=== PATIENT | female | born 1930 | race Caucasian/White ===

== ENCOUNTER 2018-05-01 12:09 | Inpatient (IN) | payer MEDICARE ==
[2018-05-01] MEDS ORDERED: Acetaminophen 650 MG Suppository PR PRN (15:05)
[2018-05-01] MEDS ORDERED: traMADol HCl 50 MG TAB PO PRN ×2 (15:08)
--- NOTE | 2018-05-01 16:33 | HP ---
CHIEF COMPLAINT: Weakness. PRESENT ILLNESS: The patient is an 88-year-old female who lives by herself and is independe nt of all her ADLs, who still drives. She has not really had any medical problem and is on no routin e medication. The patient had a fall from ground level on 04/27/2018. She is really not sure what h appened, but she had a lot of pain in her right leg and could not walk. She was taken to the emergen cy room and was found to have a distal oblique fracture of the distal right femur. She was hospitali zed at [facility] and on 04/28/2018, she underwent an open reduction interna l fixation with an intramedullary radha and 2 distal cross-locking screws and 1 proximal locking screw. This was done by Dr. Jackson with good alignment of the fracture. Postop course has been unremar kable. The patient has run a little low-grade fever with no obvious signs of infection. She has bee n no weightbearing on that right leg. She was transferred to [facility] on 05/01/2018 for cont inued physical therapy and occupational therapy due to her weakness and severe gait abnormality, part icularly with her nonweightbearing on the right leg. Patient was seen soon after her admission to [facility]. Her son, Xander, and [id number], Jody marti were with her and some grandchildren. Between the patient and her son, excellent history was abl e to be obtained. Her record was also reviewed. The patient said she is doing good and she is reall y not having much in the way of pain. PAST HISTORY: The patient is a 2, para 2. Second child was delivered by section. She has had bilateral cataract surgery with intraocular lens implants. She has had no medical proble ms. No other surgeries. PRESENT MEDICINES: None. Prior to her hospitalization, the patient came from [facility] on the following medicines: Senokot 2 p.o. daily, MiraLax 17 g in 8 ounces of water daily, Colace 100 mg daily, Tylenol 500 mg 2 every 4 hours as needed, tramadol 50 mg 1-2 every 6 hours as needed for pain. ALLERGIES: No known allergies. REVIEW OF SYSTEMS: The patient has had no recent weight gain or loss. Patient has had a low-grade f ever off and on since yesterday. HEAD AND NECK: No complaints. PULMONARY: No complaints. CARDIOVASCULAR: No chest pain. GASTROINTESTINAL: No complaints. MUSCULOSKELETAL: See present illness. NEURO/PSYCHIATRIC: The patient did not sustain any head injury with her fall nor loss of consciousne ss. HABITS: Alcohol none. Tobacco none. SOCIAL HISTORY: Patient is a , lives by herself, but has family that lives close by. She still drives. CODE STATUS: Full code. PHYSICAL EXAMINATION: GENERAL: Shows a very pleasant 88-year-old female who is alert, talkative, oriented to wher e she is and what has happened to her and to time. She appears in no distress. VITAL SIGNS: Show a temperature of 99.7, pulse 96, blood pressure 138/72, respirations 20, O2 sat 96 %. Her weight, pending. HEAD: Normocephalic and atraumatic. EYES: Pupils were equal, round, and reactive. Sclerae nonicteric. EARS: TMs are clear. NOSE: Normal. MOUTH AND THROAT: Normal. NECK: Carotids are equal and strong, no bruits. Thyroid not enlarged. LUNGS: Clear. HEART: Regular rate. No murmurs. ABDOMEN: Soft, no organomegaly nor areas of tenderness. EXTREMITIES: Lower extremities; no edema. The patient has a dressing on the right leg with a knee i mmobilizer. Nurses had changed this earlier and said that the incisions were very clean and dry. IMPRESSION: 1. Generalized weakness and gait abnormality. A. Following a fall and fracture of the right distal femur. B. Presently at nonweightbearing on the right leg. 2. Close mildly displaced oblique fracture of the right distal femur. A. Status post open reduction internal fixation with an intramedullary radha with two cross-locking sc rews distally and 1 cross-locking screw proximally by Dr. Jackson on 04/28/2018. 3. Anemia. A. Secondary to probably blood loss from the fracture and surgery. B. Hemoglobin 8.8 on 04/30/2018. PLAN: The patient has been admitted to [facility] extended care for physical therapy and occup ational therapy in an effort to increase her general strength and functional capability. At present, she is at nonweightbearing and suspect this will be for a 6-week period. We will clarify this with her orthopedic surgeon, Dr. Jackson. We will repeat lab studies in the morning. We will place the patient on DVT prophylaxis. See orders.
[2018-05-01 19:48] LABS: Bilirubin Negative (Negative); Blood, Urine Negative (Negative); Clarity Clear (Clear); Glucose, Urine (Dipstick) Negative (Negative); Leukocyte Negative (Negative); Nitrite Negative (Negative); Protein, Urine (Dipstick) Negative (Neg-Trace); Specific Gravity, Urine 1.015 (1.005-1.030); pH, Urine 6.5 (5.0-9.0)
[2018-05-01 19:50] LABS: Bacteria/HPF Rare-Few HPF (None Seen); RBC/HPF 0-3 HPF (0-3); Squamous Epithelial 0-3 HPF (0-3); WBC/HPF 0-3 HPF (0-3)
[2018-05-02 05:42] LABS: #Basophils 0.1 thou/uL (0.0-0.2); #Eosinphils 0.1 thou/uL (0.0-0.7); #Lymphocytes 1.1 thou/uL (1.20-3.40); #Monocytes 0.4 thou/uL (0.11-0.59); #Neutrophils 4.5 thou/uL (1.40-6.50); %Basophils 1.8 % (0.0-1.0); %Eosinophils 1.5 % (0.0-10.0); %Lymphocytes 17.3 % (21.0-51.0); %Monocytes 6.7 % (0.0-10.0); %Neutrophils 72.7 % (42.0-75.0); Hemoglobin 8.8 g/dL (12.0-16.0); Mean Corpuscular HGB CONC 33.4 g/dL (32.0-36.0); Mean Corpuscular Hemoglobin 33.2 pg (27.0-31.0); Mean Corpuscular Volume 99.4 fL (78.0-98.0); Mean Platelet Volume 6.2 fL (7.4-10.4); Platelet Count 218 thou/uL (130-400); RBC Distribution Width 13.6 % (11.5-14.5); Red Blood Cell (RBC) Count 2.66 mill/uL (4.20-5.40); White Blood Cell (WBC) Count 6.2 thou/uL (4.8-10.8)
[2018-05-02 05:44] LABS: Anion Gap 11 mmol/L (10-20); BUN (Urea Nitrogen) 14 mg/dL (9.8-20.1); Calc. Creatinine Clearance 46 mL/min (70-130); Calcium 8.5 mg/dL (7.8-10.44); Chloride 108 mmol/L (98-107); Estimated GFR-MDRD 72; Glucose 99 mg/dL (83-110); Potassium 4.3 mmol/L (3.5-5.1); Sodium 142 mmol/L (136-145)
[2018-05-02 05:59] LABS: Carbon Dioxide 27 mmol/L (23-31)
[2018-05-02 06:06] LABS: Thyroid Stimulating Hormone 0.1919 uIU/mL (0.35-4.94)
[2018-05-02] MEDS ORDERED: Prevnar 13-Val Conj/PF 0.5 ML SYRINGE IM ONE (08:00)
[2018-05-02] MEDS: Polyethylene Glycol 3350 17 GM Packet PO SCH (08:56)
[2018-05-02] MEDS: Docusate 100 MG CAP PO SCH (08:56)
[2018-05-02] MEDS: Enoxaparin Sodium 30 MG/0.3 ML SYRINGE SC SCH (08:56)
--- NOTE | 2018-05-02 11:46 | PRG ---
DATE OF SERVICE: 05/02/2018 SUBJECTIVE: The patient said she is doing good this morning, said she had a little trouble sleeping last night, but finally went to sleep early this morning. The pain seemed to be controlled. OBJECTIVE: The patient is alert, appears comfortable, in no distress. Temp 98.6, pulse 92, respirat ions 20, O2 sat 98% on room air, blood pressure 183/77, last evening it was 138/66. Lungs were clear . Heart, regular rate. Lower extremities, no edema. The right leg has a dressing wrap and a knee i mmobilizer in place. Her labs shows an H&H of 8.8 and 26.5, WBC count 6200 with 73% segs, 17% lympho cytes, platelet count of 218,000. Sodium 142, potassium 4.3, BUN 14, creatinine 0.76. GFR 72, gluco se 99. Vitamin D pending. TSH 0.19. Urine shows negative nitrite, 0-3 RBCs, 0-3 WBCs. ASSESSMENT: 1. Generalized weakness and gait abnormality. A. Following a fall and fracture of the right distal femur. B. Presently at nonweightbearing on the right leg. C. Stable. PT, OT will begin working with patient as of 05/02/2018. 2. Close mildly displaced oblique fracture of the right distal femur. A. Status post open reduction internal fixation with an intramedullary radha with two cross-locking sc rews distally and 1 cross-locking screw proximally by Dr. Jackson on 04/28/2018. 3. Anemia. A. Secondary to probably blood loss from the fracture and surgery. B. Stable with a hemoglobin of 8.8. PLAN: Continue present care. Continue PT and OT will begin working with her today.
[2018-05-02 12:29] LABS: Vitamin D, 25 Hydroxy 22.9 ng/ml (> 30.0)
[2018-05-02] MEDS: Acetaminophen 325 MG TAB PO PRN (20:37)
[2018-05-03] MEDS: Docusate 100 MG CAP PO SCH (08:41)
[2018-05-03] MEDS: Enoxaparin Sodium 30 MG/0.3 ML SYRINGE SC SCH (08:41)
[2018-05-03] MEDS: Polyethylene Glycol 3350 17 GM Packet PO SCH (08:41)
--- NOTE | 2018-05-03 09:19 | PRG ---
DATE OF SERVICE: 05/03/2018 SUBJECTIVE: The patient said she is doing fine. She rested well last night. Overall, she is feelin g better. OBJECTIVE: The patient lying in bed, alert, appears comfortable in no distress. She did say it has been several days since she has had a bowel movement. She is passing a little gas. Her vital signs show a temperature 98.2, respirations 16, pulse 76, O2 sat 96% on room air, blood pressure 159/74. L ungs are clear. Heart, regular rate. Lower extremities, no edema. Right leg is wrapped with an mo . ASSESSMENT: 1. Generalized weakness and gait abnormality. A. Following a fall and fracture of the right distal femur. B. Presently at nonweightbearing on the right leg. C. Improved as of 05/03/2018, still with no weightbearing on the right. 2. Close mildly displaced oblique fracture of the right distal femur. A. Status post open reduction internal fixation with an intramedullary radha with two cross-locking sc rews distally and 1 cross-locking screw proximally by Dr. Jackson on 04/28/2018. 3. Anemia. A. Secondary to probably blood loss from the fracture and surgery. B. Stable with a hemoglobin of 8.8. PLAN: Continue present care. Continue PT and OT.
[2018-05-04] MEDS: Polyethylene Glycol 3350 17 GM Packet PO SCH (09:58)
[2018-05-04] MEDS: Enoxaparin Sodium 30 MG/0.3 ML SYRINGE SC SCH (09:58)
[2018-05-04] MEDS: Docusate 100 MG CAP PO SCH (09:58)
--- NOTE | 2018-05-04 11:16 | PRG ---
DATE OF SERVICE: 05/04/2018 SUBJECTIVE: The patient said she is feeling better. She had a good night. She has been up working with physical therapy. She is now in a wheelchair with the right leg elevated. OBJECTIVE: GENERAL: The patient is sitting in a wheelchair with the right leg in a knee immobilizer and outstre tched, legs supported on wheelchair. She looks very comfortable, in no distress. VITAL SIGNS: Shows a temperature 98.3, pulse 83, respirations 18, O2 sat 96% on room air, blood pres sure 158/72. LUNGS: Clear. HEART: Regular rate. EXTREMITIES: No edema. ASSESSMENT: 1. Generalized weakness and gait abnormality. A. Following a fall and fracture of the right distal femur. B. Presently at nonweightbearing on the right leg. C. Improved as of 05/04/2018. Still no weightbearing on the right. Remaining diagnoses are the cathleen e. 2. Close mildly displaced oblique fracture of the right distal femur. A. Status post open reduction internal fixation with an intramedullary radha with two cross-locking sc rews distally and 1 cross-locking screw proximally by Dr. Jackson on 04/28/2018. 3. Anemia. A. Secondary to probably blood loss from the fracture and surgery. B. Stable with a hemoglobin of 8.8. PLAN: Continue present care. Continue PT and OT.
[2018-05-04] MEDS: Acetaminophen 325 MG TAB PO PRN (21:07)
[2018-05-05] MEDS: Polyethylene Glycol 3350 17 GM Packet PO SCH (08:41)
[2018-05-05] MEDS: Docusate 100 MG CAP PO SCH (08:41)
[2018-05-05] MEDS: Enoxaparin Sodium 30 MG/0.3 ML SYRINGE SC SCH (08:41)
--- NOTE | 2018-05-05 10:10 | PRG ---
DATE OF SERVICE: 05/05/2018 SUBJECTIVE: The patient has been doing very well. She has no complaints. She has already been up w orking with physical therapy. OBJECTIVE: The patient is sitting in bedside chair eating her breakfast with the right leg elevated. She looks very comfortable, in no distress. Her temperature is 98.2, pulse 84, respirations 18, O2 sat 95%, blood pressure 163/77. Lungs were clear. Heart, regular rate. Lower extremities, no harman a. Right leg has the wrapping on the leg and the knee immobilizer. Left forearm, on the volar surfa ce there is some area of bruising and little induration from an IV infiltration. She has some little superficial phlebitis there, this probable the source of her low grade fever. ASSESSMENT: 1. Generalized weakness and gait abnormality. A. Following a fall and fracture of the right distal femur. B. Presently at nonweightbearing on the right leg. C. Improved as of 05/05/2018. Still no weightbearing on the right leg. 2. Close mildly displaced oblique fracture of the right distal femur. A. Status post open reduction internal fixation with an intramedullary radha with two cross-locking sc rews distally and 1 cross-locking screw proximally by Dr. Jackson on 04/28/2018. B. Doing well for 7 days postop as of 05/05/2018. 3. Anemia. A. Secondary to probably blood loss from the fracture and surgery. B. Stable with a hemoglobin of 8.8. PLAN: Continue present care. Continue physical therapy.
[2018-05-05] MEDS: Senokot 8.6 MG TAB PO PRN (20:33)
[2018-05-06] MEDS: Enoxaparin Sodium 30 MG/0.3 ML SYRINGE SC SCH (09:02)
[2018-05-06] MEDS: Polyethylene Glycol 3350 17 GM Packet PO SCH (09:02)
[2018-05-06] MEDS: Docusate 100 MG CAP PO SCH (09:02)
[2018-05-06] MEDS: Senokot 8.6 MG TAB PO PRN (20:08)
[2018-05-07] MEDS: Enoxaparin Sodium 30 MG/0.3 ML SYRINGE SC SCH (08:31)
[2018-05-07] MEDS: Polyethylene Glycol 3350 17 GM Packet PO SCH (08:31)
[2018-05-07] MEDS: Docusate 100 MG CAP PO SCH (08:31)
[2018-05-07] MEDS: Acetaminophen 325 MG TAB PO PRN (22:28)
[2018-05-08] MEDS: Enoxaparin Sodium 30 MG/0.3 ML SYRINGE SC SCH (08:34)
[2018-05-08] MEDS: Docusate 100 MG CAP PO SCH (08:34)
[2018-05-08] MEDS: Polyethylene Glycol 3350 17 GM Packet PO SCH (08:34)
[2018-05-09 06:00] LABS: Anion Gap 12 mmol/L (10-20); BUN (Urea Nitrogen) 15 mg/dL (9.8-20.1); Calc. Creatinine Clearance 47 mL/min (70-130); Calcium 8.8 mg/dL (7.8-10.44); Carbon Dioxide 28 mmol/L (23-31); Chloride 108 mmol/L (98-107); Estimated GFR-MDRD 74; Glucose 91 mg/dL (83-110); Potassium 4.5 mmol/L (3.5-5.1); Sodium 143 mmol/L (136-145)
[2018-05-09 06:14] LABS: Band 1 % (5-11); Hemoglobin 9.4 g/dL (12.0-16.0); Hypochromia SLIGHT = 6-15 cells (100X) (0-5/hpf); Lymphocytes 16 % (21-51); MDiff Complete? YES; Macrocytosis SLIGHT = 6-15 cells (100X) (0-5/hpf); Mean Corpuscular HGB CONC 32.3 g/dL (32.0-36.0); Mean Corpuscular Hemoglobin 32.9 pg (27.0-31.0); Microcytosis SLIGHT = 6-15 cells (100X) (0-5/hpf); Monocytes 7 % (0-10); Neutrophil 73 % (42-75); Platelet Count 421 thou/uL (130-400); Platelet Morphology Comment Appears Adequate; RBC Distribution Width 15.8 % (11.5-14.5); RBC Morphology Abnormal; Reactive Lymphocytes 3 % (0-10); Red Blood Cell (RBC) Count 2.85 mill/uL (4.20-5.40); Stomatocytes SLIGHT = 2-5 cells (100X) (0-1/hpf); White Blood Cell (WBC) Count 6.8 thou/uL (4.8-10.8)
--- NOTE | 2018-05-09 08:42 | PRG ---
DATE OF SERVICE: 05/06/2018 SUBJECTIVE: The patient says she is doing fine. She has worked with physical therapy, but not doing any weightbearing with her right leg. She is up in the wheelchair a lot. She is walking very short distances with the use of her walker and her knee immobilizer on. OBJECTIVE: GENERAL: The patient is sitting up in a chair. She is alert, looks very comfortable and in no distr ess. VITAL SIGNS: Shows a temperature of 98.4, pulse 88, respirations 18, O2 sat 100% on room air, blood pressure 160/66. LUNGS: Clear. HEART: Regular rate. EXTREMITIES: Lower extremities, no edema. ASSESSMENT: 1. Generalized weakness and gait abnormality. A. Following a fall and fracture of the right distal femur. B. Presently at nonweightbearing on the right leg. C. Improved as of 05/06/2018. She remains no weightbearing on the right leg, but able to walk short distances with her walker. 2. Close mildly displaced oblique fracture of the right distal femur. A. Status post open reduction internal fixation with an intramedullary radha with two cross-locking sc rews distally and 1 cross-locking screw proximally by Dr. Jackson on 04/28/2018. B. Doing very well on postop day #8 as of 05/06/2018. 3. Anemia. A. Secondary to probably blood loss from the fracture and surgery. B. Stable with a hemoglobin of 8.8. PLAN: Continue present care. Continue physical therapy. The patient due to be seen by her orthoped ic surgeon, Dr. Jackson next week.
--- NOTE | 2018-05-09 08:43 | PRG ---
DATE OF SERVICE: 05/08/2018 SUBJECTIVE: The patient thinks she is doing good. She is getting around in a wheelchair, is able to propel the wheelchair herself. She keeps the right leg elevated in the wheelchair. She has no comp laint this morning. OBJECTIVE: The patient is up in a wheelchair with the right leg elevated, parallel to the ground. S he looks alert, talkative, and in no distress. Vital signs show a temperature of 98, pulse 93, respi rations 18, O2 saturation 97%, blood pressure 134/65. Lungs are clear. Heart, regular rate. Extrem ities, no edema. Right leg is in a long leg knee splint. ASSESSMENT: 1. Generalized weakness and gait abnormality. A. Following a fall and fracture of the right distal femur. B. Presently at nonweightbearing on the right leg. C. Improved as of 05/08/2018. Remains nonweightbearing on the right leg. Wheelchair mobility impro ving in wheelchair if she keeps right leg elevated. 2. Close mildly displaced oblique fracture of the right distal femur. A. Status post open reduction internal fixation with an intramedullary radha with two cross-locking sc rews distally and 1 cross-locking screw proximally by Dr. Jackson on 04/28/2018. B. Doing very well for 10th day postoperative. 3. Anemia. A. Secondary to probably blood loss from the fracture and surgery. B. Stable with a hemoglobin of 8.8. PLAN: Continue present care. Continue physical therapy. Continue nonweightbearing status for the r ight leg.
[2018-05-09] MEDS: Docusate 100 MG CAP PO SCH (08:59)
[2018-05-09] MEDS: Polyethylene Glycol 3350 17 GM Packet PO SCH (08:59)
[2018-05-09] MEDS: Enoxaparin Sodium 30 MG/0.3 ML SYRINGE SC SCH (09:00)
--- NOTE | 2018-05-09 12:52 | PRG ---
DATE OF SERVICE: 05/09/2018 SUBJECTIVE: The patient said she is feeling fine. She has been working with therapist and getting b gerardo with wheelchair mobility. She still at nonweightbearing on that right leg. This morning she h as already been to physical therapy and is returning to her room, propelling herself in the wheelchai r. She did say she has had a little swelling in her legs. OBJECTIVE: The patient is sitting up in her wheelchair with the right leg elevated. She is alert, t alkative, appears comfortable and in no distress. Her temperature is 97.2, pulse 80, respirations 18 , O2 sat 95% on room air, blood pressure is 146/67. Her lungs were clear. Heart, regular rate. Low er extremities, there is trace edema in the lower extremities. The right leg has a long leg knee imm obilizer present. H&H 9.4 and 29.1, white cell count 6800 with 73% segs, 16% lymphocytes. Sodium 143, potassium 4.5, B UN 15, creatinine 0.74, glucose 91, 25 hydroxy, vitamin D low at 22.9. TSH 0.19. ASSESSMENT: 1. Generalized weakness and gait abnormality. A. Following a fall and fracture of the right distal femur. B. Presently at nonweightbearing on the right leg. C. Improved as of 05/09/2018. Overall strength improving. Remains nonweightbearing on the right. Wheelchair mobility improved. 2. Close mildly displaced oblique fracture of the right distal femur. A. Status post open reduction internal fixation with an intramedullary radha with two cross-locking sc rews distally and 1 cross-locking screw proximally by Dr. Jackson on 04/28/2018. B. Continued improvement as of 05/09/2018. 3. Anemia. A. Secondary to probably blood loss from the fracture and surgery. B. Hemoglobin 9.4 as of 05/09/2018. 4. Vitamin D deficiency. PLAN: Continue present care. Continue PT, OT. Will place the patient on vitamin D supplement. The patient due to see Dr. Jackson, orthopedic surgeon, on 05/12/2018.
[2018-05-09] MEDS: Senokot 8.6 MG TAB PO PRN (19:41)
[2018-05-10] MEDS: Enoxaparin Sodium 30 MG/0.3 ML SYRINGE SC SCH (08:36)
[2018-05-10] MEDS: Docusate 100 MG CAP PO SCH (08:37)
[2018-05-10] MEDS: Polyethylene Glycol 3350 17 GM Packet PO SCH (08:37)
--- NOTE | 2018-05-10 10:49 | PRG ---
DATE OF SERVICE: 05/10/2018 SUBJECTIVE: The patient says she is doing alright. She is due to see her orthopedic surgeon, Dr. Terry hinds on 05/12/2018. She is doing good with physical therapy. She is doing excellent with her whe elchair mobility. She is walking some with a walker by hopping and no weightbearing on the right leg . Therapist says she is going about 20 feet. OBJECTIVE: The patient is sitting in her wheelchair. She is alert, appears comfortable in no distre ss. Temp 97.7, pulse 84, respirations 20, O2 saturation 94% on room air, blood pressure 175/77. Her lungs are clear. Heart, regular rate. Lower extremities, trace edema. Blood pressure was checked last night and was 129/60. ASSESSMENT: 1. Generalized weakness and gait abnormality. A. Following a fall and fracture of the right distal femur. B. Presently at nonweightbearing on the right leg. C. Improved as of 05/10/2018. Overall strength improving. Remains nonweightbearing on the right. Wheelchair mobility improved. 2. Close mildly displaced oblique fracture of the right distal femur. A. Status post open reduction internal fixation with an intramedullary radha with two cross-locking sc rews distally and 1 cross-locking screw proximally by Dr. Jackson on 04/28/2018. B. Continued improvement as of 05/10/2018. 3. Anemia. A. Secondary to probably blood loss from the fracture and surgery. B. Hemoglobin 9.4 as of 05/09/2018. 4. Vitamin D deficiency. PLAN: Continue present care. Continue physical therapy.
[2018-05-10] MEDS: Senokot 8.6 MG TAB PO PRN (20:41)
[2018-05-11] MEDS: Docusate 100 MG CAP PO SCH (09:04)
[2018-05-11] MEDS: Enoxaparin Sodium 30 MG/0.3 ML SYRINGE SC SCH (09:04)
[2018-05-11] MEDS: Polyethylene Glycol 3350 17 GM Packet PO SCH (09:04)
[2018-05-11] MEDS: Proctozone-HC 2.5% Cream 30 GM TUBE TOP PRN ×2 (09:04→21:01)
--- NOTE | 2018-05-11 11:09 | PRG ---
DATE OF SERVICE: 05/11/2018 SUBJECTIVE: The patient says she is doing alright. Nurses said that she had asked for little hemorr hoidal cream. She is scheduled to see her orthopedic surgeon, Dr. Jackson tomorrow, 05/12/2018. OBJECTIVE: GENERAL: The patient is sitting up in a wheelchair with her right leg elevated parallel to the groun d. She is working well, upper body strengthening. She appears in no distress. VITAL SIGNS: Shows a temperature of 97.6, pulse 75, respirations 16, O2 sat 96%, blood pressure was 181/81, last evening was 138/65. LUNGS: Clear. HEART: Regular rate. EXTREMITIES: Right leg is elevated parallel to the ground in her wheelchair. Left leg has the knee high support hose and there is no swelling. ASSESSMENT: 1. Generalized weakness and gait abnormality. A. Following a fall and fracture of the right distal femur. B. Presently at nonweightbearing on the right leg. C. Improved as of 05/11/2018. Overall strength improving. Remains nonweightbearing on the right. Wheelchair mobility improved. 2. Close mildly displaced oblique fracture of the right distal femur. A. Status post open reduction internal fixation with an intramedullary radha with two cross-locking sc rews distally and 1 cross-locking screw proximally by Dr. Jackson on 04/28/2018. B. Continued improvement as of 05/11/2018. 3. Anemia. A. Secondary to probably blood loss from the fracture and surgery. B. Hemoglobin 9.4 as of 05/09/2018. 4. Vitamin D deficiency. PLAN: Continue present care. We will allow the patient to have hemorrhoidal cream to use as needed. The patient will schedule to see her orthopedic surgeon, Dr. Jackson tomorrow, 05/12/2018.
[2018-05-12] MEDS: Docusate 100 MG CAP PO SCH (08:15)
[2018-05-12] MEDS: Polyethylene Glycol 3350 17 GM Packet PO SCH (08:15)
[2018-05-12] MEDS: Enoxaparin Sodium 30 MG/0.3 ML SYRINGE SC SCH (08:15)
--- NOTE | 2018-05-12 09:31 | PRG ---
DATE OF SERVICE: 05/12/2018 SUBJECTIVE: The patient said she is doing alright. She says she has a hard time hopping and no weig htbearing on that right leg. She is due to see Dr. Jackson, her orthopedic surgeon today and she h opes that she can began doing a little weightbearing, which will help with her ambulation. OBJECTIVE: The patient lying in bed, alert, appears very comfortable in no distress. Her temperatur e 97.5, pulse 106, respirations 16, O2 sat 98% on room air, blood pressure 149/77. Lungs are clear. Heart, regular rate. Extremities; right leg has a knee immobilizer on. The left leg, no edema. ASSESSMENT: 1. Generalized weakness and gait abnormality. A. Following a fall and fracture of the right distal femur. B. Presently at nonweightbearing on the right leg. C. Improved as of 05/12/2018. Upper body strength improved. Remains nonweightbearing on the right. Hopping for short distances. Wheelchair mobility improved. 2. Close mildly displaced oblique fracture of the right distal femur. A. Status post open reduction internal fixation with an intramedullary radha with two cross-locking sc rews distally and 1 cross-locking screw proximally by Dr. Jackson on 04/28/2018. B. Continued improvement as of 05/12/2018. 3. Anemia. A. Secondary to probably blood loss from the fracture and surgery. B. Hemoglobin 9.4 as of 05/09/2018. 4. Vitamin D deficiency. PLAN: Continue present care. The patient due to see Dr. Jackson, orthopedic surgeon, today.
[2018-05-13] MEDS: Enoxaparin Sodium 30 MG/0.3 ML SYRINGE SC SCH (09:27)
[2018-05-13] MEDS: Polyethylene Glycol 3350 17 GM Packet PO SCH (09:28)
[2018-05-13] MEDS: Docusate 100 MG CAP PO SCH (09:28)
[2018-05-13] MEDS: Proctozone-HC 2.5% Cream 30 GM TUBE TOP PRN (09:29)
[2018-05-14] MEDS: Polyethylene Glycol 3350 17 GM Packet PO SCH (08:29)
[2018-05-14] MEDS: Docusate 100 MG CAP PO SCH (08:30)
[2018-05-14] MEDS: Enoxaparin Sodium 30 MG/0.3 ML SYRINGE SC SCH (08:30)
--- NOTE | 2018-05-14 13:02 | PRG ---
DATE OF SERVICE: 05/13/2018 SUBJECTIVE: The patient said she is doing good. She did go to see Dr. Jackson, her orthopedic ke geon, yesterday. He has recommended range of motion exercises of the right knee with the knee immobi lizer off and afterwards replaced the knee immobilizer. She is to remain at nonweightbearing. She w ill be seen in followup by Dr. Jackson on 06/09/2018. The patient said she thinks she is doing goo d. OBJECTIVE: The patient is sitting up in her wheelchair with her right leg elevated with her knee imm obilizer in place. She looks very comfortable in no distress. Her temperature 98.1, pulse 70, respi rations 18, O2 sat 99% on room air, blood pressure 164/76. Lungs are clear. Heart, regular rate. L ower extremities, no edema. The patient is wearing the knee-high support hose on the left leg. She looks comfortable and looks well fitted. ASSESSMENT: 1. Generalized weakness and gait abnormality. A. Following a fall and fracture of the right distal femur. B. Presently at nonweightbearing on the right leg. C. Improved as of 05/13/2018. Upper body strength improving. Remains nonweightbearing on the right , coughing for short distance. Wheelchair mobility improving. 2. Close mildly displaced oblique fracture of the right distal femur. A. Status post open reduction internal fixation with an intramedullary radha with two cross-locking sc rews distally and 1 cross-locking screw proximally by Dr. Jackson on 04/28/2018. B. Continued improvement as of 05/12/2018. C. Visit with Dr. Jackson on 05/12/2018 where he recommends range of motion exercise of the knees 3 times a day. Put the knee immobilizer back on after exercise. Remain nonweightbearing. Followup appointment with him on 06/09/2018. 3. Anemia. A. Secondary to probably blood loss from the fracture and surgery. B. Hemoglobin 9.4 as of 05/09/2018. 4. Vitamin D deficiency. PLAN: Continue the above recommendations. Continue PT and OT.
--- NOTE | 2018-05-14 13:04 | PRG ---
DATE OF SERVICE: 05/14/2018 SUBJECTIVE: The patient says she is doing fine. She is having no pain in her leg. She has particip ated with physical therapy. She says she has a hard time with hopping. She remains at no weightbear ing on that right leg per instructions of her orthopedic surgeon, Dr. Jackson. OBJECTIVE: GENERAL: The patient is sitting at her geriatric chair with her right leg elevated parallel to the g round. She looks very comfortable. VITAL SIGNS: Shows a temperature of 97.7, pulse 81, respirations 18, O2 sat 96%, blood pressure laura y this morning before medicines was 92/78, last evening, 139/63. LUNGS: Clear. HEART: Regular rate. EXTREMITIES: No edema. The right leg has the knee immobilizer present. ASSESSMENT: 1. Generalized weakness and gait abnormality. A. Following a fall and fracture of the right distal femur. B. Presently at nonweightbearing on the right leg. C. Improved as of 05/14/2018, upper body strength improved. Remains nonweightbearing on the right. Hopping for short distances. Wheelchair mobility improved. 2. Close mildly displaced oblique fracture of the right distal femur. A. Status post open reduction internal fixation with an intramedullary radha with two cross-locking sc rews distally and 1 cross-locking screw proximally by Dr. Jackson on 04/28/2018. B. Continued improvement as of 05/12/2018. 3. Anemia. A. Secondary to probably blood loss from the fracture and surgery. B. Hemoglobin 9.4 as of 05/09/2018. 4. Vitamin D deficiency. 5. Hypertension. PLAN: We will continue present care. Continue physical therapy. We will start the patient on low d ose lisinopril for the hypertension. Review of her blood pressures many readings ranging from the 140s up to 200.
[2018-05-15] MEDS: Enoxaparin Sodium 30 MG/0.3 ML SYRINGE SC SCH (08:35)
[2018-05-15] MEDS: Polyethylene Glycol 3350 17 GM Packet PO SCH (08:35)
[2018-05-15] MEDS: Docusate 100 MG CAP PO SCH (08:35)
[2018-05-15] MEDS: Lisinopril 5 MG TAB PO SCH (08:35)
[2018-05-16] MEDS: Enoxaparin Sodium 30 MG/0.3 ML SYRINGE SC SCH (08:27)
[2018-05-16] MEDS: Polyethylene Glycol 3350 17 GM Packet PO SCH (08:28)
[2018-05-16] MEDS: Docusate 100 MG CAP PO SCH (08:28)
[2018-05-16] MEDS: Lisinopril 5 MG TAB PO SCH (08:28)
--- NOTE | 2018-05-16 12:00 | PRG ---
DATE OF SERVICE: 05/16/2018 SUBJECTIVE: The patient said she is feeling fine. She is working with physical therapy this morning and doing well with her wheelchair mobility and no weightbearing on the right leg. OBJECTIVE: GENERAL: Patient is up in a wheelchair, propelling herself with her right leg in a knee immobilizer elevated parallel to the floor. VITAL SIGNS: Shows temperature 98.8, pulse 81, respirations 18, O2 saturation 98% on room air, blood pressure 169/74, last evening 110/53. LUNGS: Clear. HEART: Regular rate. EXTREMITIES: No edema. ASSESSMENT: 1. Generalized weakness and gait abnormality. A. Following a fall and fracture of the right distal femur. B. Presently at nonweightbearing on the right leg. C. Improved as of 05/16/2018, upper body strength improved. Remains nonweightbearing on the right. Hopping for short distances. Wheelchair mobility improved. 2. Close mildly displaced oblique fracture of the right distal femur. A. Status post open reduction internal fixation with an intramedullary radha with two cross-locking sc rews distally and 1 cross-locking screw proximally by Dr. Jackson on 04/28/2018. B. Continued improvement as of 05/16/2018. 3. Anemia. A. Secondary to probably blood loss from the fracture and surgery. B. Hemoglobin 9.4 as of 05/09/2018. 4. Vitamin D deficiency. 5. Hypertension. A. Controlled, improved as of 05/16/2018. PLAN: Continue present care. Continue PT.
[2018-05-17] MEDS: Lisinopril 5 MG TAB PO SCH (08:17)
[2018-05-17] MEDS: Enoxaparin Sodium 30 MG/0.3 ML SYRINGE SC SCH (08:17)
[2018-05-17] MEDS: Proctozone-HC 2.5% Cream 30 GM TUBE TOP PRN (08:18)
[2018-05-17] MEDS: Polyethylene Glycol 3350 17 GM Packet PO SCH (08:18)
[2018-05-17] MEDS: Docusate 100 MG CAP PO SCH (08:18)
--- NOTE | 2018-05-17 10:05 | PRG ---
DATE OF SERVICE: 05/17/2018 SUBJECTIVE: The patient says she is doing well. She feels good. She said she is working with physi giovana therapy, is doing very well with her wheelchair mobility. She is now walking up to 35 feet by ho pping with no weightbearing on the right with the use of a walker. Nurses reported there is a little slight reddened area on the buttock and had asked for Lantiseptic which will be okay to use. OBJECTIVE: The patient is sitting up in a wheelchair with her knee immobilizer on the right leg and the leg elevated parallel to the ground. She looks very comfortable. Her vital signs show a tempera ture 98.1, pulse 77, respirations 16, O2 sat 94%, blood pressure 137/65. Lungs are clear. Heart, re gular rate. Lower extremities, no edema. Right leg has a knee immobilizer on. ASSESSMENT: 1. Generalized weakness and gait abnormality. A. Following a fall and fracture of the right distal femur. B. Presently at nonweightbearing on the right leg. C. Improved as of 05/17/2018. Upper body strength improved. Remains nonweightbearing on the right, but able to hop with a walker up to 35 feet. Wheelchair mobility improving. 2. Close mildly displaced oblique fracture of the right distal femur. A. Status post open reduction internal fixation with an intramedullary radha with two cross-locking sc rews distally and 1 cross-locking screw proximally by Dr. Jackson on 04/28/2018. B. Continued improvement as of 05/17/2018. 3. Anemia. A. Secondary to probably blood loss from the fracture and surgery. B. Hemoglobin 9.4 as of 05/09/2018. 4. Vitamin D deficiency. 5. Hypertension. A. Controlled as of 05/17/2018. PLAN: Continue present care. Continue PT, OT. May utilize Lantiseptic as needed for her bottom.
[2018-05-17] MEDS: Lantiseptic Ointment 130 GM JAR TOP SCH ×2 (10:26→20:59)
[2018-05-18] MEDS: Proctozone-HC 2.5% Cream 30 GM TUBE TOP PRN (08:28)
[2018-05-18] MEDS: Lantiseptic Ointment 130 GM JAR TOP SCH (08:28)
[2018-05-18] MEDS: Docusate 100 MG CAP PO SCH (08:29)
[2018-05-18] MEDS: Enoxaparin Sodium 30 MG/0.3 ML SYRINGE SC SCH (08:29)
[2018-05-18] MEDS: Lisinopril 5 MG TAB PO SCH (08:29)
[2018-05-18] MEDS: Polyethylene Glycol 3350 17 GM Packet PO SCH (08:29)
[2018-05-19] MEDS: Lantiseptic Ointment 130 GM JAR TOP SCH ×3 (03:12→21:05)
[2018-05-19] MEDS: Enoxaparin Sodium 30 MG/0.3 ML SYRINGE SC SCH (08:18)
[2018-05-19] MEDS: Proctozone-HC 2.5% Cream 30 GM TUBE TOP PRN (08:19)
[2018-05-19] MEDS: Lisinopril 5 MG TAB PO SCH (08:19)
[2018-05-19] MEDS: Docusate 100 MG CAP PO SCH (08:19)
[2018-05-19] MEDS: Polyethylene Glycol 3350 17 GM Packet PO SCH (08:21)
--- NOTE | 2018-05-19 09:43 | PRG ---
DATE OF SERVICE: 05/19/2018 SUBJECTIVE: The patient thinks she is doing good. She is doing well with her therapy, is doing exce llent with wheelchair mobility. She is walking with a walker by hopping up to 35 feet, but has to marques ve a gait belt on and the therapist right with her. OBJECTIVE: The patient is sitting on the edge of her bed, getting ready to get up. She is alert, lo oks very comfortable, in no distress. Her temperature is 98, pulse 75, respirations 18, O2 sat 92%, blood pressure 163/69, earlier it was 130/58. Lungs are clear. Heart, regular rate. Lower extremit ies, no edema. The patient is wearing her knee immobilizer on the right. ASSESSMENT: 1. Generalized weakness and gait abnormality. A. Following a fall and fracture of the right distal femur. B. Presently at nonweightbearing on the right leg. C. Improved as of 05/19/2018. Upper body strength improved. Remains nonweightbearing on the right, but able to hop with a walker up to 35 feet. Wheelchair mobility improving. 2. Close mildly displaced oblique fracture of the right distal femur. A. Status post open reduction internal fixation with an intramedullary radha with two cross-locking sc rews distally and 1 cross-locking screw proximally by Dr. Jackson on 04/28/2018. B. Continued improvement as of 05/19/2018. 3. Anemia. A. Secondary to probably blood loss from the fracture and surgery. B. Hemoglobin 9.4 as of 05/09/2018. 4. Vitamin D deficiency. 5. Hypertension. A. Controlled as of 05/19/2018. PLAN: Continue present care. Continue PT.
[2018-05-20] MEDS: Polyethylene Glycol 3350 17 GM Packet PO SCH (08:54)
[2018-05-20] MEDS: Lisinopril 5 MG TAB PO SCH (08:54)
[2018-05-20] MEDS: Docusate 100 MG CAP PO SCH (08:54)
[2018-05-20] MEDS: Enoxaparin Sodium 30 MG/0.3 ML SYRINGE SC SCH (08:54)
[2018-05-20] MEDS: Lantiseptic Ointment 130 GM JAR TOP SCH ×2 (08:55→21:40)
--- NOTE | 2018-05-20 10:54 | PRG ---
DATE OF SERVICE: 05/20/2018 SUBJECTIVE: The patient says she is doing good. She continues to work with physical therapy. She i s doing well with her wheelchair mobility and able to hop, but requires the gait belt and standby ass istance. OBJECTIVE: The patient is sitting up in a wheelchair with the right leg in a knee immobilizer and el evated parallel to the ground. She looks very comfortable and in no distress. Her temperature is 97 .9, pulse 72, respirations 18, O2 sat 95% on room air, blood pressure 165/71. Lungs are clear. Hear t, regular rate. Extremities, no edema. Right leg in the knee immobilizer. Her blood pressure take n last night was 131/59. ASSESSMENT: 1. Generalized weakness and gait abnormality. A. Following a fall and fracture of the right distal femur. B. Presently at nonweightbearing on the right leg. C. Improved as of 05/20/2018. Upper body strength improved. Remains nonweightbearing on the right, but able to hop with a walker up to 35 feet. Wheelchair mobility improving. 2. Close mildly displaced oblique fracture of the right distal femur. A. Status post open reduction internal fixation with an intramedullary radha with two cross-locking sc rews distally and 1 cross-locking screw proximally by Dr. Jackson on 04/28/2018. B. Continued improvement as of 05/20/2018. 3. Anemia. A. Secondary to probably blood loss from the fracture and surgery. B. Hemoglobin 9.4 as of 05/09/2018. 4. Vitamin D deficiency. 5. Hypertension. A. Controlled as of 05/20/2018. PLAN: Continue PT. Will repeat CBC and basic metabolic panel on Wednesday05/23/2018.
[2018-05-20] MEDS: Proctozone-HC 2.5% Cream 30 GM TUBE TOP PRN (21:40)
[2018-05-21] MEDS: Enoxaparin Sodium 30 MG/0.3 ML SYRINGE SC SCH (09:05)
[2018-05-21] MEDS: Lisinopril 5 MG TAB PO SCH (09:05)
[2018-05-21] MEDS: Docusate 100 MG CAP PO SCH (09:06)
[2018-05-21] MEDS: Lantiseptic Ointment 130 GM JAR TOP SCH ×2 (09:07→21:42)
[2018-05-21] MEDS: Polyethylene Glycol 3350 17 GM Packet PO SCH (09:07)
[2018-05-21] MEDS: Proctozone-HC 2.5% Cream 30 GM TUBE TOP PRN (21:41)
[2018-05-22] MEDS: Lisinopril 5 MG TAB PO SCH (08:18)
[2018-05-22] MEDS: Enoxaparin Sodium 30 MG/0.3 ML SYRINGE SC SCH (08:18)
[2018-05-22] MEDS: Lantiseptic Ointment 130 GM JAR TOP SCH ×2 (08:18→20:39)
[2018-05-22] MEDS: Docusate 100 MG CAP PO SCH (08:18)
[2018-05-22] MEDS: Polyethylene Glycol 3350 17 GM Packet PO SCH (08:18)
[2018-05-22] MEDS: Proctozone-HC 2.5% Cream 30 GM TUBE TOP PRN (10:00)
[2018-05-23 05:37] LABS: Anion Gap 12 mmol/L (10-20); BUN (Urea Nitrogen) 16 mg/dL (9.8-20.1); Calc. Creatinine Clearance 48 mL/min (70-130); Calcium 8.5 mg/dL (7.8-10.44); Carbon Dioxide 25 mmol/L (23-31); Chloride 109 mmol/L (98-107); Estimated GFR-MDRD 76; Glucose 85 mg/dL (83-110); Potassium 4.4 mmol/L (3.5-5.1); Sodium 142 mmol/L (136-145)
[2018-05-23 05:52] LABS: Band 1 % (5-11); Eosinophils 4 % (0-10); Hemoglobin 9.6 g/dL (12.0-16.0); Lymphocytes 36 % (21-51); MDiff Complete? YES; Mean Corpuscular HGB CONC 33.4 g/dL (32.0-36.0); Mean Corpuscular Hemoglobin 33.4 pg (27.0-31.0); Mean Corpuscular Volume 99.8 fL (78.0-98.0); Mean Platelet Volume 6.3 fL (7.4-10.4); Monocytes 4 % (0-10); Neutrophil 53 % (42-75); Platelet Count 306 thou/uL (130-400); Platelet Morphology Comment Appears Adequate; RBC Morphology Normal; Red Blood Cell (RBC) Count 2.88 mill/uL (4.20-5.40); White Blood Cell (WBC) Count 4.1 thou/uL (4.8-10.8)
[2018-05-23] MEDS: Lisinopril 5 MG TAB PO SCH (09:25)
[2018-05-23] MEDS: Enoxaparin Sodium 30 MG/0.3 ML SYRINGE SC SCH (09:25)
[2018-05-23] MEDS: Polyethylene Glycol 3350 17 GM Packet PO SCH (09:25)
[2018-05-23] MEDS: Docusate 100 MG CAP PO SCH (09:26)
[2018-05-23] MEDS: Lantiseptic Ointment 130 GM JAR TOP SCH ×2 (09:26→20:43)
--- NOTE | 2018-05-23 12:02 | PRG ---
DATE OF SERVICE: 05/23/2018 SUBJECTIVE: The patient said she is doing well. She has no complaints. OBJECTIVE: This morning. Patient's in physical therapy working on strengthening exercise for her ar ms. She appears very comfortable in no distress. Her temperature is 98.5, pulse 68, respirations 18 , O2 sat 95% on room air, blood pressure 144/66. Lungs are clear. Heart, regular rate. Lower extre mities, trace edema. Right leg is in a knee immobilizer. Her labs shows an H&H of 9.6 and 28.8, whi te cell count 4100 with 53% segs, 1% bands, 36% lymphocytes, and a platelet count of 306,000. Sodium 142, potassium 4.4, BUN 16, creatinine 0.72, GFR 76, glucose 85. ASSESSMENT: 1. Generalized weakness and gait abnormality. A. Following a fall and fracture of the right distal femur. B. Presently at nonweightbearing on the right leg. C. Improved as of 05/20/2018. Upper body strength is improving. Remains nonweightbearing on the fl ght, but able to hop with a walker a little further with assistance. Wheelchair mobility continues to improve. 2. Close mildly displaced oblique fracture of the right distal femur. A. Status post open reduction internal fixation with an intramedullary radha with two cross-locking sc rews distally and 1 cross-locking screw proximally by Dr. Jackson on 04/28/2018. B. Continued improvement as of 05/23/2018. 3. Anemia. A. Secondary to probably blood loss from the fracture and surgery. B. Hemoglobin improved to 9.6 as of 05/23/2018. 4. Vitamin D deficiency. 5. Hypertension. A. Controlled as of 05/23/2018. PLAN: Continue present care. Continue PT and OT.
[2018-05-23] MEDS: Senokot 8.6 MG TAB PO PRN (20:43)
[2018-05-23] MEDS: Proctozone-HC 2.5% Cream 30 GM TUBE TOP PRN (20:49)
[2018-05-24] MEDS: Polyethylene Glycol 3350 17 GM Packet PO SCH (09:13)
[2018-05-24] MEDS: Docusate 100 MG CAP PO SCH (09:14)
[2018-05-24] MEDS: Lisinopril 5 MG TAB PO SCH (09:14)
[2018-05-24] MEDS: Enoxaparin Sodium 30 MG/0.3 ML SYRINGE SC SCH (09:14)
[2018-05-24] MEDS: Proctozone-HC 2.5% Cream 30 GM TUBE TOP PRN ×2 (09:15→20:33)
[2018-05-24] MEDS: Lantiseptic Ointment 130 GM JAR TOP SCH ×2 (09:16→20:33)
--- NOTE | 2018-05-24 09:55 | PRG ---
DATE OF SERVICE: 05/24/2018 SUBJECTIVE: The patient said she is doing good. She has no complaint, due to see Dr. Jackson, [facility] surgeon at the end of the month. OBJECTIVE: GENERAL: The patient is alert, appears in no distress. She is sitting up in her bed. VITAL SIGNS: Her temperature is 97.8, pulse 72, respirations 20, O2 sat 93% on room air, blood press ure 160/72. LUNGS: Clear. HEART: Regular rate. EXTREMITIES: Lower extremities, no edema. Right leg is in a knee immobilizer. ASSESSMENT: 1. Generalized weakness and gait abnormality. A. Following a fall and fracture of the right distal femur. B. Presently at nonweightbearing on the right leg. C. Improved as of 05/24/2018. Upper body strength is improving. Remains nonweightbearing on the co ght, but able to hop with a walker a little further with assistance. Wheelchair mobility continues to improve. 2. Close mildly displaced oblique fracture of the right distal femur. A. Status post open reduction internal fixation with an intramedullary radha with two cross-locking sc rews distally and 1 cross-locking screw proximally by Dr. Jackson on 04/28/2018. B. Continued improvement as of 05/24/2018. 3. Anemia. A. Secondary to probably blood loss from the fracture and surgery. B. Hemoglobin improved to 9.6 as of 05/23/2018. 4. Vitamin D deficiency. 5. Hypertension. A. Controlled as of 05/23/2018. PLAN: Continue PT, OT. The patient remains nonweightbearing on the right.
[2018-05-24] MEDS: Senokot 8.6 MG TAB PO PRN (20:32)
[2018-05-25] MEDS: Enoxaparin Sodium 30 MG/0.3 ML SYRINGE SC SCH (08:29)
[2018-05-25] MEDS: Lisinopril 5 MG TAB PO SCH (08:30)
[2018-05-25] MEDS: Docusate 100 MG CAP PO SCH (08:30)
[2018-05-25] MEDS: Polyethylene Glycol 3350 17 GM Packet PO SCH (08:30)
[2018-05-25] MEDS: Proctozone-HC 2.5% Cream 30 GM TUBE TOP PRN (08:31)
[2018-05-25] MEDS: Lantiseptic Ointment 130 GM JAR TOP SCH ×2 (08:31→21:13)
--- NOTE | 2018-05-25 09:52 | PRG ---
DATE OF SERVICE: 05/25/2018 SUBJECTIVE: The patient said she is doing well. She has no complaints. She continues to work with physical therapy, is hopping up to 40 feet 2 times a day using a rolling walker and with the therapis t in attendance. Her transfers are getting better, but still requires some caregiver assist OBJECTIVE: The patient is sitting up and she is alert, appears very comfortable and in no distress. Her temperature is 98.8, pulse 73, respirations 18, O2 sat 95% on room air, blood pressure 135/64. Lungs were clear. Heart, regular rate. Lower extremities, no edema. Right leg is in a knee immobil izer. ASSESSMENT: 1. Generalized weakness and gait abnormality. A. Following a fall and fracture of the right distal femur. B. Presently at nonweightbearing on the right leg. C. Improved as of 05/25/2018. Upper body strength improved. Remains nonweightbearing on the right. Able to hop using a walker up to 40 feet. Wheelchair mobility improved. 2. Close mildly displaced oblique fracture of the right distal femur. A. Status post open reduction internal fixation with an intramedullary radha with two cross-locking sc rews distally and 1 cross-locking screw proximally by Dr. Jcakson on 04/28/2018. B. Continued improvement as of 05/25/2018. 3. Anemia. A. Secondary to probably blood loss from the fracture and surgery. B. Hemoglobin improved to 9.6 as of 05/23/2018. 4. Vitamin D deficiency. 5. Hypertension. A. Controlled as of 05/25/2018. PLAN: Continue present care. Continue PT.
[2018-05-26] MEDS: Lisinopril 5 MG TAB PO SCH (08:19)
[2018-05-26] MEDS: Enoxaparin Sodium 30 MG/0.3 ML SYRINGE SC SCH (08:19)
[2018-05-26] MEDS: Polyethylene Glycol 3350 17 GM Packet PO SCH (08:20)
[2018-05-26] MEDS: Docusate 100 MG CAP PO SCH (08:20)
[2018-05-26] MEDS: Proctozone-HC 2.5% Cream 30 GM TUBE TOP PRN (08:21)
[2018-05-26] MEDS: Lantiseptic Ointment 130 GM JAR TOP SCH ×2 (08:22→21:30)
[2018-05-27] MEDS: Lisinopril 5 MG TAB PO SCH (08:18)
[2018-05-27] MEDS: Enoxaparin Sodium 30 MG/0.3 ML SYRINGE SC SCH (08:18)
[2018-05-27] MEDS: Docusate 100 MG CAP PO SCH (08:19)
[2018-05-27] MEDS: Polyethylene Glycol 3350 17 GM Packet PO SCH (08:19)
[2018-05-27] MEDS: Lantiseptic Ointment 130 GM JAR TOP SCH ×2 (08:19→21:15)
--- NOTE | 2018-05-27 10:19 | PRG ---
DATE OF SERVICE: 05/27/2018 SUBJECTIVE: The patient thinks she is doing well. She continues to work with physical therapy. Her upper body strength has improved. She is still working with therapy and nonweightbearing on the rig ht and ambulating by hopping on the left leg and using a walker and assistance. OBJECTIVE: The patient is sitting up in her chair with the right leg elevated. She has a knee immob ilizer on this, but this is being taken off several times a day to allow range of motion exercise of the right knee which is improving. She looks very comfortable, in no distress. Her temperature is 98.7, pulse 71, blood pressure 147/63, respirations 16, O2 sat 95%. Lungs are clear. Heart, regular rate. Lower extremities, no edema. Knee immobilizer on the right leg. ASSESSMENT: 1. Generalized weakness and gait abnormality. A. Following a fall and fracture of the right distal femur. B. Presently at nonweightbearing on the right leg. C. Improved as of 05/27/2018. Upper body strength improved. Remains nonweightbearing on the right. Able to hop using a walker up to 40 feet. Wheelchair mobility improved. 2. Close mildly displaced oblique fracture of the right distal femur. A. Status post open reduction internal fixation with an intramedullary radha with two cross-locking sc rews distally and 1 cross-locking screw proximally by Dr. Jackson on 04/28/2018. B. Continued improvement as of 05/27/2018. 3. Anemia. A. Secondary to probably blood loss from the fracture and surgery. B. Hemoglobin improved to 9.6 as of 05/23/2018. 4. Vitamin D deficiency. 5. Hypertension. A. Controlled as of 05/27/2018. PLAN: Continue PT, OT. The patient will be following up with her orthopedic surgeon around 06/09/20 18.
[2018-05-28] MEDS: Docusate 100 MG CAP PO SCH (09:38)
[2018-05-28] MEDS: Enoxaparin Sodium 30 MG/0.3 ML SYRINGE SC SCH (09:38)
[2018-05-28] MEDS: Polyethylene Glycol 3350 17 GM Packet PO SCH (09:39)
[2018-05-28] MEDS: Lisinopril 5 MG TAB PO SCH ×2 (10:06→10:09)
[2018-05-28] MEDS: Lantiseptic Ointment 130 GM JAR TOP SCH ×2 (10:06→20:56)
[2018-05-28] MEDS: Senokot 8.6 MG TAB PO PRN (20:57)
[2018-05-29] MEDS: Docusate 100 MG CAP PO SCH (08:45)
[2018-05-29] MEDS: Lisinopril 5 MG TAB PO SCH (08:46)
[2018-05-29] MEDS: Enoxaparin Sodium 30 MG/0.3 ML SYRINGE SC SCH (08:46)
[2018-05-29] MEDS: Polyethylene Glycol 3350 17 GM Packet PO SCH (08:47)
[2018-05-29] MEDS: Lantiseptic Ointment 130 GM JAR TOP SCH ×2 (08:48→21:18)
[2018-05-30] MEDS: Docusate 100 MG CAP PO SCH (09:11)
[2018-05-30] MEDS: Lisinopril 5 MG TAB PO SCH (09:11)
[2018-05-30] MEDS: Enoxaparin Sodium 30 MG/0.3 ML SYRINGE SC SCH (09:11)
[2018-05-30] MEDS: Polyethylene Glycol 3350 17 GM Packet PO SCH (09:12)
[2018-05-30] MEDS: Lantiseptic Ointment 130 GM JAR TOP SCH ×2 (09:12→20:06)
--- NOTE | 2018-05-30 12:11 | PRG ---
DATE OF SERVICE: 05/28/2018 SUBJECTIVE: The patient says she is doing fine. She said her leg is not hurting her. Her appetite has been good. She continues to work with physical therapy, does excellent with her wheelchair mobil ity, is hopping up to 40 feet twice today with her rolling walker and caregiver assist, this is getti ng a little better. She has some assistance still with transfer, particularly from bed to a chair. OBJECTIVE: GENERAL: The patient is sitting up in bed, just finishing her breakfast. She looks very comfortable in no distress. VITAL SIGNS: Her temperature is 98.2, pulse 77, respirations 18, O2 sat 95%, blood pressure 187/79, last evening 132/63. She has not yet had her morning meds when pressure taken. LUNGS: Clear. HEART: Regular rate. EXTREMITIES: No edema. ASSESSMENT: 1. Generalized weakness and gait abnormality. A. Following a fall and fracture of the right distal femur. B. Presently at nonweightbearing on the right leg. C. Improved as of 05/28/2018. Upper body strength improved. Remains nonweightbearing on the right leg. D. Able to hop using a walker up to 40 feet twice today. Wheelchair mobility. 2. Close mildly displaced oblique fracture of the right distal femur. A. Status post open reduction internal fixation with an intramedullary radha with two cross-locking sc rews distally and 1 cross-locking screw proximally by Dr. Jackson on 04/28/2018. B. Continued improvement as of 05/28/2018. 3. Anemia. A. Secondary to probably blood loss from the fracture and surgery. B. Hemoglobin improved to 9.6 as of 05/23/2018. 4. Vitamin D deficiency. 5. Hypertension. A. Controlled and improved, but still has episodes where BP is elevated as of 05/28/2018. PLAN: We will increase the lisinopril to 10 mg a day. Continue PT.
--- NOTE | 2018-05-30 12:13 | PRG ---
DATE OF SERVICE: 05/30/2018 SUBJECTIVE: The patient said she is doing alright. She had no complaint. She thinks she is doing b gerardo with therapy. We will be glad when she can start weightbearing on that right leg. OBJECTIVE: The patient is sitting up in a bedside chair with her right leg elevated. She is alert, appears very comfortable, and in no distress. Temp 97.5, pulse 75, respirations 20, O2 sat 95% on ro om air, blood pressure 166/70. Lungs are clear. Heart, regular rate. Lower extremities, no edema. ASSESSMENT: 1. Generalized weakness and gait abnormality. A. Following a fall and fracture of the right distal femur. B. Presently at nonweightbearing on the right leg. C. Improved as of 05/30/2018. Upper body strength improved. Remains nonweightbearing on the right. Able to hop using a walker up to 40 feet. Wheelchair mobility improved. 2. Close mildly displaced oblique fracture of the right distal femur. A. Status post open reduction internal fixation with an intramedullary radha with two cross-locking sc rews distally and 1 cross-locking screw proximally by Dr. Jackson on 04/28/2018. B. Continued improvement as of 05/30/2018. 3. Anemia. A. Secondary to probably blood loss from the fracture and surgery. B. Hemoglobin improved to 9.6 as of 05/23/2018. 4. Vitamin D deficiency. 5. Hypertension. A. Controlled as of 05/30/2018. PLAN: Continue present care. Continue PT.
[2018-05-31] MEDS: Polyethylene Glycol 3350 17 GM Packet PO SCH (09:31)
[2018-05-31] MEDS: Enoxaparin Sodium 30 MG/0.3 ML SYRINGE SC SCH (09:31)
[2018-05-31] MEDS: Lantiseptic Ointment 130 GM JAR TOP SCH ×2 (09:32→21:15)
[2018-05-31] MEDS: Docusate 100 MG CAP PO SCH (09:32)
[2018-05-31] MEDS: Lisinopril 5 MG TAB PO SCH (09:32)
--- NOTE | 2018-05-31 13:01 | PRG ---
DATE OF SERVICE: 05/31/2018 SUBJECTIVE: The patient said she is doing good today. She is leaving the knee immobilizer off some to allow her some flexion exercises of the knee and movement in the knee is improved. She still at no weightbearing with that right leg, but doing better with her hopping. OBJECTIVE: The patient is sitting up in a wheelchair. She is alert, appears in no distress. She do es not have her knee immobilizer on. Vital signs show a temperature of 97.2, pulse 74, respirations 18, O2 sat 96% on room air, blood pressure 162/72, last evening 120/57. Lungs are clear. Heart, reg ular rate. The right leg, the incision over the knee is well healed. There is no edema in the legs. ASSESSMENT: 1. Generalized weakness and gait abnormality. A. Following a fall and fracture of the right distal femur. B. Presently at nonweightbearing on the right leg. C. Improved as of 05/31/2018. Upper body strength improved. Remains nonweightbearing on the right. Able to hop using a walker up to 40 feet. Flexion in the right knee improved. Wheelchair mobility improved. 2. Close mildly displaced oblique fracture of the right distal femur. A. Status post open reduction internal fixation with an intramedullary radha with two cross-locking sc rews distally and 1 cross-locking screw proximally by Dr. Jackson on 04/28/2018. B. Continued improvement as of 05/31/2018. 3. Anemia. A. Secondary to probably blood loss from the fracture and surgery. B. Hemoglobin improved to 9.6 as of 05/23/2018. 4. Vitamin D deficiency. 5. Hypertension. A. Controlled as of 05/31/2018. PLAN: Continue present care. Continue PT and OT.
[2018-06-01] MEDS: Lantiseptic Ointment 130 GM JAR TOP SCH ×2 (08:39→19:40)
[2018-06-01] MEDS: Enoxaparin Sodium 30 MG/0.3 ML SYRINGE SC SCH (08:39)
[2018-06-01] MEDS: Lisinopril 5 MG TAB PO SCH (08:40)
[2018-06-01] MEDS: Polyethylene Glycol 3350 17 GM Packet PO SCH (08:40)
[2018-06-01] MEDS: Docusate 100 MG CAP PO SCH (08:40)
--- NOTE | 2018-06-01 10:06 | PRG ---
DATE OF SERVICE: 06/01/2018 SUBJECTIVE: The patient thinks she is doing fine. She is working well with physical therapy, doing well with her upper body strength, doing excellent with her wheelchair mobility, and walking with lit tle hops up to 40 feet using a walker and standby assistance. OBJECTIVE: The patient initially was seen in her room sitting up in a chair and later working with p hysical therapy, hopping with the aid of a walker. She looks very comfortable and in no distress. H er temperature is 97.7, pulse 77, respirations 18, O2 sat 95% on room air, blood pressure 177/79 and last evening 126/58. Her lungs were clear. Heart, regular rate. Extremities, no edema. ASSESSMENT: 1. Generalized weakness and gait abnormality. A. Following a fall and fracture of the right distal femur. B. Presently at nonweightbearing on the right leg. C. Improved as of 06/01/2018. Upper body strength improved. Remains nonweightbearing on the right. Able to hop using a walker up to 40 feet. Flexion in the right knee improved. Wheelchair mobility improved. 2. Close mildly displaced oblique fracture of the right distal femur. A. Status post open reduction internal fixation with an intramedullary radha with two cross-locking sc rews distally and 1 cross-locking screw proximally by Dr. Jackson on 04/28/2018. B. Continued improvement as of 06/01/2018. 3. Anemia. A. Secondary to probably blood loss from the fracture and surgery. B. Hemoglobin improved to 9.6 as of 05/23/2018. 4. Vitamin D deficiency. 5. Hypertension. A. Controlled as of 05/31/2018. PLAN: Continue present care. Continue PT. Patient due to see her orthopedic surgeon, Dr. Jackson , on 06/09/2018.
[2018-06-02] MEDS: Docusate 100 MG CAP PO SCH (08:47)
[2018-06-02] MEDS: Enoxaparin Sodium 30 MG/0.3 ML SYRINGE SC SCH (08:47)
[2018-06-02] MEDS: Lisinopril 5 MG TAB PO SCH (08:47)
[2018-06-02] MEDS: Polyethylene Glycol 3350 17 GM Packet PO SCH (08:48)
[2018-06-02] MEDS: Lantiseptic Ointment 130 GM JAR TOP SCH ×2 (09:09→20:16)
[2018-06-03] MEDS: Lisinopril 5 MG TAB PO SCH (09:47)
[2018-06-03] MEDS: Docusate 100 MG CAP PO SCH (09:49)
[2018-06-03] MEDS: Lantiseptic Ointment 130 GM JAR TOP SCH ×2 (09:49→20:11)
[2018-06-03] MEDS: Enoxaparin Sodium 30 MG/0.3 ML SYRINGE SC SCH (09:49)
[2018-06-03] MEDS: Polyethylene Glycol 3350 17 GM Packet PO SCH (09:49)
[2018-06-03] MEDS ORDERED: Azithromycin 250 MG TAB PO SCH (10:15)
--- NOTE | 2018-06-03 12:03 | PRG ---
DATE OF SERVICE: 06/03/2018 SUBJECTIVE: The patient said she has been doing fine other than having some head congestion and a li ttle cough. OBJECTIVE: GENERAL: Patient's up in a wheelchair just coming back from physical therapy. She is doing excellen t with her hopping and now was hopping up to 50 feet with the aid of a walker and standby assistance. VITAL SIGNS: Shows a temperature of 99.6, pulse 75, respirations 20, O2 saturation 90%, blood pressu re 157/70. LUNGS: Some coarse expiratory breath sounds and some mild rhonchi, no rales and could not hear any d efinite wheeze. HEART: Regular rate. EXTREMITIES: Right leg incisions are well healed. She has increasing ability to flex that left leg. ASSESSMENT: 1. Generalized weakness and gait abnormality. A. Following a fall and fracture of the right distal femur. B. Presently at nonweightbearing on the right leg. C. Improved as of 06/03/2018. Upper body strength improved. Remains nonweightbearing on the right. Able to hop using a walker up to 40 feet. Flexion in the right knee improved. Wheelchair mobility improved. 2. Close mildly displaced oblique fracture of the right distal femur. A. Status post open reduction internal fixation with an intramedullary radha with two cross-locking sc rews distally and 1 cross-locking screw proximally by Dr. Jackson on 04/28/2018. B. Continued improvement as of 06/03/2018. 3. Anemia. A. Secondary to probably blood loss from the fracture and surgery. B. Hemoglobin improved to 9.6 as of 05/23/2018. 4. Vitamin D deficiency. 5. Hypertension. A. Controlled as of 05/31/2018. 6. Bronchitis and upper respiratory infection as of 06/03/2018. PLAN: Continue physical therapy and occupational therapy. The patient is due to see orthopedic surg ishan, Dr. Jackson back on 06/09/2018. We will place the patient on azithromycin for the bronchitis and we will place her on Mucinex.
[2018-06-03] MEDS: guaiFENesin ER 600 MG TAB PO SCH (20:11)
[2018-06-04] MEDS: Enoxaparin Sodium 30 MG/0.3 ML SYRINGE SC SCH (08:35)
[2018-06-04] MEDS: Lisinopril 5 MG TAB PO SCH (08:36)
[2018-06-04] MEDS: Azithromycin 250 MG TAB PO SCH (08:36)
[2018-06-04] MEDS: Docusate 100 MG CAP PO SCH (08:36)
[2018-06-04] MEDS: guaiFENesin ER 600 MG TAB PO SCH ×2 (08:36→20:38)
[2018-06-04] MEDS: Polyethylene Glycol 3350 17 GM Packet PO SCH (08:37)
[2018-06-04] MEDS: Lantiseptic Ointment 130 GM JAR TOP SCH ×2 (08:37→20:38)
--- NOTE | 2018-06-05 07:06 | PRG ---
DATE OF SERVICE: 06/04/2018 SUBJECTIVE: The patient said she feels a lot better today. She does have head congestion. Her coug h is much better, and she does not feel congested. OBJECTIVE: GENERAL: The patient is sitting up in her wheelchair, appears very comfortable with her right knee i s flexed and just sitting in a wheelchair with foot vega. She looks in no distress. Her VITAL SIG NS: Show a temperature of 97.8, blood pressure 157/70, pulse 71, respirations 20, O2 saturation 97%, blood pressure 157/70. LUNGS: Clear with no coarseness to the expiratory breath sounds. No wheezes or rhonchi. No rales. HEART: Regular rate. EXTREMITIES: Lower extremities, no edema. ASSESSMENT: 1. Generalized weakness and gait abnormality. A. Following a fall and fracture of the right distal femur. B. Presently at nonweightbearing on the right leg. C. Improved as of 06/04/2018. Upper body strength improved. Remains nonweightbearing on the right. Able to hop using a walker up to 40 feet. Flexion in the right knee improved. Wheelchair mobility improved. 2. Close mildly displaced oblique fracture of the right distal femur. A. Status post open reduction internal fixation with an intramedullary radha with two cross-locking sc rews distally and 1 cross-locking screw proximally by Dr. Jackson on 04/28/2018. B. Continued improvement as of 06/04/2018. 3. Anemia. A. Secondary to probably blood loss from the fracture and surgery. B. Hemoglobin improved to 9.6 as of 05/23/2018. 4. Vitamin D deficiency. 5. Hypertension. A. Much improved as of 06/04. 6. Bronchitis and upper respiratory infection as of 06/03/2018. PLAN: Continue present care. Continue PT and OT. [facility].
[2018-06-05] MEDS: Enoxaparin Sodium 30 MG/0.3 ML SYRINGE SC SCH (08:40)
[2018-06-05] MEDS: Lisinopril 5 MG TAB PO SCH (08:41)
[2018-06-05] MEDS: Docusate 100 MG CAP PO SCH (08:41)
[2018-06-05] MEDS: guaiFENesin ER 600 MG TAB PO SCH ×2 (08:41→20:58)
[2018-06-05] MEDS: Azithromycin 250 MG TAB PO SCH (08:41)
[2018-06-05] MEDS: Polyethylene Glycol 3350 17 GM Packet PO SCH (08:42)
[2018-06-05] MEDS: Lantiseptic Ointment 130 GM JAR TOP SCH ×2 (08:42→21:00)
[2018-06-05] MEDS ORDERED: Lantiseptic Ointment 130 GM JAR TOP SCH (09:00)
[2018-06-05] MEDS ORDERED: Lantiseptic Ointment 130 GM JAR TOP PRN (09:00)
[2018-06-06] MEDS: Enoxaparin Sodium 30 MG/0.3 ML SYRINGE SC SCH (08:40)
[2018-06-06] MEDS: Azithromycin 250 MG TAB PO SCH (08:40)
[2018-06-06] MEDS: Polyethylene Glycol 3350 17 GM Packet PO SCH (08:40)
[2018-06-06] MEDS: Docusate 100 MG CAP PO SCH (08:40)
[2018-06-06] MEDS: Lisinopril 5 MG TAB PO SCH (08:40)
[2018-06-06] MEDS: guaiFENesin ER 600 MG TAB PO SCH ×2 (08:40→20:34)
[2018-06-06] MEDS: Lantiseptic Ointment 130 GM JAR TOP SCH ×2 (08:41→21:41)
--- NOTE | 2018-06-06 13:58 | PRG ---
DATE OF SERVICE: 06/06/2018 SUBJECTIVE: The patient said she is doing fine. She has no head congestion. No cough. She has had no fever. She is making good progress with her therapy. She is due to see her orthopedic surgeon, Dr. Jackson, on 06/09/2018. She is hoping she can start doing some weightbearing on that right leg at that point. OBJECTIVE: The patient is sitting up in a wheelchair. She is alert and appears comfortable in no di stress. Her temperature 98.2, pulse 71, respirations 18, O2 sat 95% on room air, blood pressure 181/ 77, has not yet had her morning meds. :Last night her pressure was 145/66. Lungs were clear. Heart , regular rate. Extremities, no edema. Incisions on the right leg are well healed. ASSESSMENT: 1. Generalized weakness and gait abnormality. A. Following a fall and fracture of the right distal femur. B. Presently at nonweightbearing on the right leg. C. Improved as of 06/06/2018. Upper body strength improved. Remains nonweightbearing on the right. Able to hop using a walker up to 40 feet. Flexion in the right knee improved. Wheelchair mobility improved. 2. Close mildly displaced oblique fracture of the right distal femur. A. Status post open reduction internal fixation with an intramedullary radha with two cross-locking sc rews distally and 1 cross-locking screw proximally by Dr. Jackson on 04/28/2018. B. Continued improvement as of 05/17/2018. 3. Anemia. A. Secondary to probably blood loss from the fracture and surgery. B. Hemoglobin improved to 9.6 as of 05/23/2018. 4. Vitamin D deficiency. 5. Hypertension. A. Improved, but still has episodes where there is elevation. 6. Bronchitis and upper respiratory infection as of 06/03/2018. A. Resolving as of 06/06/2018. PLAN: Continue present care. Continue PT, OT. Continue to monitor BP.
[2018-06-06] MEDS: Senokot 8.6 MG TAB PO PRN (20:33)
[2018-06-07] MEDS: Docusate 100 MG CAP PO SCH (08:34)
[2018-06-07] MEDS: Lisinopril 5 MG TAB PO SCH (08:34)
[2018-06-07] MEDS: Azithromycin 250 MG TAB PO SCH (08:34)
[2018-06-07] MEDS: Enoxaparin Sodium 30 MG/0.3 ML SYRINGE SC SCH (08:35)
[2018-06-07] MEDS: Polyethylene Glycol 3350 17 GM Packet PO SCH (08:35)
[2018-06-07] MEDS: guaiFENesin ER 600 MG TAB PO SCH ×2 (08:35→20:43)
[2018-06-07] MEDS: Lantiseptic Ointment 130 GM JAR TOP SCH ×2 (08:35→20:43)
--- NOTE | 2018-06-07 10:35 | PRG ---
DATE OF SERVICE: 06/07/2018 SUBJECTIVE: The patient said she is doing good. She is making good progress with physical therapy. She does excellent with her wheelchair mobility, is walking with hopping with no weightbearing on right and upper body strength improved. She is not having any more the cold symptoms or cough. OBJECTIVE: GENERAL: Patient is lying in bed, awake, appears very comfortable. VITAL SIGNS: Shows a temperature 98.6, pulse 82, respirations 18, blood pressure last evening 132/68 . LUNGS: Clear. HEART: Regular rate. EXTREMITIES: No edema. ASSESSMENT: 1. Generalized weakness and gait abnormality. A. Following a fall and fracture of the right distal femur. B. Presently at nonweightbearing on the right leg. C. Improved as of 06/07/2018. Upper body strength improved. Remains nonweightbearing on the right. Able to hop using a walker up to 40 feet. Flexion in the right knee improved. Wheelchair mobility improved. 2. Close mildly displaced oblique fracture of the right distal femur. A. Status post open reduction internal fixation with an intramedullary radha with two cross-locking sc rews distally and 1 cross-locking screw proximally by Dr. Jackson on 04/28/2018. B. Continued improvement as of 06/07/2018. 3. Anemia. A. Secondary to probably blood loss from the fracture and surgery. B. Hemoglobin improved to 9.6 as of 05/23/2018. 4. Vitamin D deficiency. 5. Hypertension. A. Improved, but still has some episodes of some elevations of BP. 6. Bronchitis and upper respiratory infection as of 06/03/2018. A. Resolved as of 06/07/2018. PLAN: 1. Continue PT and OT. The patient is scheduled to see her orthopedic surgeon, Dr. Jackson, , 06/09/2018.
[2018-06-08 05:23] LABS: Anion Gap 13 mmol/L (10-20); BUN (Urea Nitrogen) 18 mg/dL (9.8-20.1); Calc. Creatinine Clearance 45 mL/min (70-130); Calcium 8.7 mg/dL (7.8-10.44); Carbon Dioxide 24 mmol/L (23-31); Chloride 110 mmol/L (98-107); Estimated GFR-MDRD 74; Glucose 83 mg/dL (83-110); Potassium 4.1 mmol/L (3.5-5.1); Sodium 143 mmol/L (136-145)
[2018-06-08 05:47] LABS: Band 1 % (5-11); Eosinophils 3 % (0-10); Hemoglobin 10.3 g/dL (12.0-16.0); Lymphocytes 29 % (21-51); MDiff Complete? YES; Mean Corpuscular HGB CONC 32.6 g/dL (32.0-36.0); Mean Corpuscular Hemoglobin 31.5 pg (27.0-31.0); Mean Corpuscular Volume 96.5 fL (78.0-98.0); Mean Platelet Volume 6.1 fL (7.4-10.4); Monocytes 9 % (0-10); Neutrophil 46 % (42-75); Platelet Count 357 thou/uL (130-400); Platelet Morphology Comment Appears Adequate; RBC Distribution Width 13.7 % (11.5-14.5); RBC Morphology Normal; Reactive Lymphocytes 8 % (0-10); Red Blood Cell (RBC) Count 3.27 mill/uL (4.20-5.40); White Blood Cell (WBC) Count 5.1 thou/uL (4.8-10.8)
[2018-06-08] MEDS: Polyethylene Glycol 3350 17 GM Packet PO SCH (08:55)
[2018-06-08] MEDS: Lantiseptic Ointment 130 GM JAR TOP SCH ×2 (08:56→20:39)
[2018-06-08] MEDS: guaiFENesin ER 600 MG TAB PO SCH ×2 (08:56→20:38)
[2018-06-08] MEDS: Docusate 100 MG CAP PO SCH (08:56)
[2018-06-08] MEDS: Lisinopril 5 MG TAB PO SCH (08:56)
[2018-06-08] MEDS: Enoxaparin Sodium 30 MG/0.3 ML SYRINGE SC SCH (08:56)
--- NOTE | 2018-06-08 09:17 | PRG ---
DATE OF SERVICE: 06/08/2018 SUBJECTIVE: The patient said that she is doing good. Continued to work with physical therapy, due to see her orthopedic surgeon Dr. Jackson tomorrow and hopeful that she can begin some weightbearing on that right leg. OBJECTIVE: GENERAL: The patient is sitting up in wheelchair. She is alert and appears very comfortable, in no distress. VITAL SIGNS: Her blood pressure 160/67 and last evening 127/59, temperature 98.6, pulse 79, respirations 18, and O2 saturation 96% on room air. LUNGS: Clear. HEART: Regular rate. EXTREMITIES: No edema. LABORATORY DATA: From admission, shows hemoglobin of 8.8 and hematocrit 31.6, white cell count 5100, 46% segs, 29% lymphocytes, and platelet count of 357. Sodium 143, potassium 4.1, BUN 18, creatinine 0.74, GFR 74, and glucose 83. ASSESSMENT: 1. Generalized weakness and gait abnormality. A. Following a fall and fracture of the right distal femur. B. Presently at nonweightbearing on the right leg. C. Improved as of 06/07/2018. Upper body strength improved. Remains nonweightbearing on the right. Able to hop using a walker up to 40 feet. Flexion in the right knee improved. Wheelchair mobility improved. 2. Close mildly displaced oblique fracture of the right distal femur. A. Status post open reduction internal fixation with an intramedullary radha with two cross-locking screws distally and 1 cross-locking screw proximally by Dr. Jackson on 04/28/2018. B. Continued improvement as of 06/07/2018. 3. Anemia. A. Secondary to probably blood loss from the fracture and surgery. B. Improved with hemoglobin up to 10.3 as of 06/08. 4. Vitamin D deficiency. 5. Hypertension. A. Improved as of 06/08. 6. Bronchitis and upper respiratory infection as of 06/03/2018. A. Resolved as of 06/07/2018. PLAN: Continue PT/OT. The patient due to see her orthopedic surgeon Dr. Jackson tomorrow. Job ID: [id number] [facility]
[2018-06-09] MEDS: Lisinopril 5 MG TAB PO SCH ×3 (07:23→20:19)
[2018-06-09] MEDS: Docusate 100 MG CAP PO SCH (07:24)
[2018-06-09] MEDS: Enoxaparin Sodium 30 MG/0.3 ML SYRINGE SC SCH (07:25)
[2018-06-09] MEDS: Polyethylene Glycol 3350 17 GM Packet PO SCH (07:26)
[2018-06-09] MEDS: guaiFENesin ER 600 MG TAB PO SCH ×2 (07:26→20:18)
[2018-06-09] MEDS: Lantiseptic Ointment 130 GM JAR TOP SCH ×2 (07:26→20:19)
--- NOTE | 2018-06-09 10:31 | PRG ---
DATE OF SERVICE: 06/09/2018 SUBJECTIVE: The patient says she is doing alright this morning. Later this morning, she is scheduled to see her orthopedic surgeon, Dr. Jackson. She is working well with physical therapy. OBJECTIVE: GENERAL: The patient is sitting up in her wheelchair. VITAL SIGNS: Show blood pressure 185/83, last evening was 169/71. The patient's blood pressure has been running a little higher in the morning, usually better in the evening. Her temperature is 97.8, pulse 80, respirations 20, and O2 sat 96% on room air. LUNGS: Clear. HEART: Regular rate. EXTREMITIES: Lower legs have no edema. Incision are well healed. ASSESSMENT: 1. Generalized weakness and gait abnormality. a. Following a fall and fracture of the right distal femur, requiring open reduction and internal fixation. b. Presently non-weightbearing on the right leg. c. Improved as of 06/09/2018, good upper body strength, remains nonweightbearing on the right, able to hop, using walker up to 45 feet. Flexion of the right knee improved. Wheelchair mobility improving. 2. Closed mildly displaced oblique fracture of the right distal femur. a. Status post open reduction and internal fixation with an intramedullary radha and 2 cross locking screws distally and [address] Jackson on 04/28/2018. b. Continued improvement as of 06/09/2018. 3. Anemia. a. Secondary to probable blood loss from this fracture and surgery. b. Hemoglobin improved to 10.3 as of 06/08. 4. Vitamin D deficiency. 5. Hypertension. a. 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 6. Bronchitis and upper respiratory infection on 06/03/2018. a. Resolved as of 06/07. PLAN: Continue PT/OT. The patient scheduled to see Dr. Jackson this morning. We will increase her lisinopril to 10 mg b.i.d. Job ID: [id number]
[2018-06-10] MEDS: Polyethylene Glycol 3350 17 GM Packet PO SCH (09:06)
[2018-06-10] MEDS: Enoxaparin Sodium 30 MG/0.3 ML SYRINGE SC SCH (09:06)
[2018-06-10] MEDS: Docusate 100 MG CAP PO SCH (09:06)
[2018-06-10] MEDS: Lisinopril 5 MG TAB PO SCH ×2 (09:06→20:03)
[2018-06-10] MEDS: Lantiseptic Ointment 130 GM JAR TOP SCH ×2 (09:07→20:03)
--- NOTE | 2018-06-10 11:12 | PRG ---
DATE OF SERVICE: 06/10/2018 SUBJECTIVE: The patient is feeling good today. She said that she went over to Dr. Jackson's office and saw his PA, and they x-ray'd her and were happy with healing of the femur. They now are allowing her 50% partial weightbearing on the right leg and they have discontinued the knee immobilizer. OBJECTIVE: GENERAL: The patient is sitting up in her wheelchair, eating her breakfast. She looks very comfortable and in no distress. VITAL SIGNS: Temperature is 97.4, pulse 78, respirations 18, O2 saturations 97% , and blood pressure 171/76. Her weight is 120, admission weight was 126. LUNGS: Clear. HEART: Regular rate. EXTREMITIES: Lower extremities, trace edema. ASSESSMENT: 1. Generalized weakness and gait abnormality. a. Following a fall and fracture of the right distal femur, requiring open reduction and internal fixation. b. Improved. Now, allowed 50% partial weightbearing of the right leg as of 06/10/2018. 2. Closed mildly displaced oblique fracture of the right distal femur. a. Status post open reduction and internal fixation with an intramedullary radha and 2 cross locking screws distally and [address] Jackson on 04/28/2018. b. Recheck by Dr. Jackson on 06/09/2018 showed good healing, and allowed now 50% partial weightbearing on the right leg and knee immobilizer discontinued. 3. Anemia. a. Secondary to probable blood loss from this fracture and surgery. b. Hemoglobin improved to 10.3 as of 06/08. 4. Vitamin D deficiency. 5. Hypertension. 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 6. Bronchitis and upper respiratory infection on 06/03/2018. a. Resolved as of 06/07. PLAN: Continue the present care. Blood pressure still little high, but only restarted the increased dose of lisinopril yesterday. We will continue to observe this with expectation of drop in this pressure. We will discontinue the Mucinex since her URI symptoms and bronchitis have all resolved. Continue PT with 50% partial weightbearing on the right leg. Job ID: [id number] [facility]
[2018-06-11] MEDS: Enoxaparin Sodium 30 MG/0.3 ML SYRINGE SC SCH (09:50)
[2018-06-11] MEDS: Polyethylene Glycol 3350 17 GM Packet PO SCH (09:50)
[2018-06-11] MEDS: Docusate 100 MG CAP PO SCH (09:51)
[2018-06-11] MEDS: Lantiseptic Ointment 130 GM JAR TOP SCH ×2 (09:51→20:41)
[2018-06-11] MEDS: Lisinopril 5 MG TAB PO SCH ×2 (09:51→20:41)
--- NOTE | 2018-06-11 10:37 | PRG ---
DATE OF SERVICE: 06/11/2018 SUBJECTIVE: The patient said that she is doing better. Yesterday, she was partially weightbearing up to 50% on the right leg and doing well with this. OBJECTIVE: GENERAL: The patient is sitting up in bed. She is alert, appears very comfortable. VITAL SIGNS: Her temperature is 97.9; pulse 78; respirations 18; O2 saturation 95% on room air; blood pressure 177/82, last night 147/67. LUNGS: Clear. HEART: Regular rate. EXTREMITIES: Right leg, there is no edema. Incisions are well healed. ASSESSMENT: 1. Generalized weakness and gait abnormality. a. Following a fall and fracture of the right distal femur, requiring open reduction and internal fixation. b. Initially nonweightbearing. c. Recheck with her orthopedic surgeon on 06/09 showed continued improvement and now allowed 50% partial weightbearing on the right. d. Improved and doing well with the partial weightbearing. 2. Closed, mildly displaced oblique fracture of right distal femur. a. Status post open reduction and internal fixation with an intramedullary radha with 2 cross locking screws distally and one proximal by Dr. Jackson on 04/28. b. Continued improvement and now 50% partial weightbearing as of 06/09/2018. 3. Anemia. a. Secondary to probable blood loss from the fracture and surgery. b. Hemoglobin improved to 10.3 as of 06/08. 4. Vitamin D deficiency. 5. Hypertension. a. Gradually improving as of 06/11. PLAN: Continue PT and OT. Job ID: [id number]
[2018-06-12] MEDS: Enoxaparin Sodium 30 MG/0.3 ML SYRINGE SC SCH (10:33)
[2018-06-12] MEDS: Lantiseptic Ointment 130 GM JAR TOP SCH ×2 (10:34→20:29)
[2018-06-12] MEDS: Polyethylene Glycol 3350 17 GM Packet PO SCH (10:34)
[2018-06-12] MEDS: Docusate 100 MG CAP PO SCH (10:34)
[2018-06-12] MEDS: Lisinopril 5 MG TAB PO SCH ×2 (10:35→20:29)
[2018-06-13] MEDS: Enoxaparin Sodium 30 MG/0.3 ML SYRINGE SC SCH (09:09)
[2018-06-13] MEDS: Docusate 100 MG CAP PO SCH (09:10)
[2018-06-13] MEDS: Lisinopril 5 MG TAB PO SCH ×2 (09:10→20:35)
[2018-06-13] MEDS: Lantiseptic Ointment 130 GM JAR TOP SCH ×2 (09:11→20:36)
[2018-06-13] MEDS: Polyethylene Glycol 3350 17 GM Packet PO SCH (09:11)
--- NOTE | 2018-06-13 09:56 | PRG ---
DATE OF SERVICE: 06/13/2018 SUBJECTIVE: The patient is doing very well with her walking using a walker and now partially weightbearing up to 50% on the right leg. No longer needing the wheelchair. OBJECTIVE: GENERAL: The patient is walking back to her room with partial weightbearing on the right using her walker and therapist as a standby administrative assistant. She is doing very well. She sat in her chair, looks very comfortable. VITAL SIGNS: Her temp was 98.3; pulse 70; respirations 18; O2 saturation 94% on room air; and blood pressure 177/77, last evening 141/65. LUNGS: Clear. HEART: Regular rate. ASSESSMENT: 1. Generalized weakness and gait abnormality;. a. Following a fall with a fracture of the right distal femur, requiring open reduction and internal fixation. b. Initially nonweightbearing. c. Marked improvement, now partial weightbearing, had been started on 06/09/2018. Doing very well with her partial weightbearing as of 06/13/2018. 2. Closed, mildly displaced oblique fracture of the right distal femur secondary to a fall. a. Status post open reduction and internal fixation with an intramedullary radha with two cross locking screws distal and one proximal by Dr. Jackson on 04/28/2018. b. Continued improvement and has been on partial weightbearing 50% since 06/09/2018. 3. Anemia. a. Secondary to probable blood loss from fracture and surgery. b. Hemoglobin improved to 10.3 as of 06/08/2018. 4. Vitamin D deficiency. 5. Hypertension, gradually improving as of 06/13/2018. PLAN: Continue present care. Job ID: [id number]
[2018-06-14] MEDS: Enoxaparin Sodium 30 MG/0.3 ML SYRINGE SC SCH (08:39)
[2018-06-14] MEDS: Polyethylene Glycol 3350 17 GM Packet PO SCH (08:39)
[2018-06-14] MEDS: Lisinopril 5 MG TAB PO SCH ×2 (08:40→21:39)
[2018-06-14] MEDS: Docusate 100 MG CAP PO SCH (08:41)
[2018-06-14] MEDS: Lantiseptic Ointment 130 GM JAR TOP SCH ×2 (08:41→21:40)
--- NOTE | 2018-06-14 13:50 | PRG ---
DATE OF SERVICE: 06/14/2018 SUBJECTIVE: The patient says she is doing fine. She is doing very well with the partial weightbearing and now walking up to 150 feet twice today. Her transfers are typically just by supervision. OBJECTIVE: GENERAL: The patient is sitting up in her bedside chair. She is alert, appears very comfortable, in no distress. VITAL SIGNS: Shows a temp of 96.9, pulse 71, respirations 18, O2 saturation 97% on room air, and blood pressure 159/83. LUNGS: Clear. HEART: Regular rate. EXTREMITIES: No edema. ASSESSMENT: 1. Generalized weakness and gait abnormality;. a. Following a fall with a fracture of the right distal femur, requiring open reduction and internal fixation. b. Initially nonweightbearing. c. Partial weightbearing at 50% beginning on 06/09/2018. d. Improved, walking now up to 150 feet with rolling walker and partial weightbearing on the right. Transfers with supervision as of 06/14/2018. 2. Closed, mildly displaced oblique fracture of the right distal femur secondary to a fall. a. Status post open reduction and internal fixation with an intramedullary radha with two cross locking screws distal and one proximal by Dr. Jackson on 04/28/2018. b. Continued improvement and has been on partial weightbearing 50% since 06/09/2018. 1. Anemia. a. Secondary to probable blood loss from fracture and surgery. b. Hemoglobin improved to 10.3 as of 06/08/2018. 2. Vitamin D deficiency. 3. Hypertension, gradually improving as of 06/14/2018. PLAN: Continue present care. Continue PT/OT. Job ID: [id number]
[2018-06-15] MEDS: Lisinopril 5 MG TAB PO SCH ×2 (08:57→21:02)
[2018-06-15] MEDS: Polyethylene Glycol 3350 17 GM Packet PO SCH (08:58)
[2018-06-15] MEDS: Docusate 100 MG CAP PO SCH (08:58)
[2018-06-15] MEDS: Hydrochlorothiazide 25 MG TAB PO SCH (08:58)
[2018-06-15] MEDS: Enoxaparin Sodium 30 MG/0.3 ML SYRINGE SC SCH (08:58)
[2018-06-15] MEDS: Lantiseptic Ointment 130 GM JAR TOP SCH ×2 (08:58→21:02)
--- NOTE | 2018-06-15 14:50 | PRG ---
DATE OF SERVICE: 06/15/2018 SUBJECTIVE: The patient says she is feeling fine. She is making good progress with her PT with the partial weightbearing. OBJECTIVE: GENERAL: The patient is sitting up in her wheelchair. She is alert, appears in no distress. Her weight is 121. VITAL SIGNS: Her temp is 97.4; pulse 63; respirations 18; O2 sat 97%; and blood pressure 179/77, last evening 164/74. LUNGS: Clear. HEART: Regular rate. EXTREMITIES: No edema. ASSESSMENT: 1. Generalized weakness and gait abnormality;. a. Following a fall with a fracture of the right distal femur, requiring open reduction and internal fixation. b. Initially nonweightbearing. c. Partial weightbearing at 50% beginning on 06/09/2018. d. Improved, walking now up to 150 feet with rolling walker and partial weightbearing on the right. Transfers with supervision as of 2017. 2. Closed, mildly displaced oblique fracture of the right distal femur secondary to a fall. a. Status post open reduction and internal fixation with an intramedullary radha with two cross locking screws distal and one proximal by Dr. Jackson on 04/28/2018. a. Status post open reduction internal fixation with an intramedullary radha with two cross-locking screws distally and 1 cross-locking screw proximally by Dr. Jackson on 04/28/2018.. b. Continued improvement and has been on partial weightbearing 50% since . c. Excellent progress 3. Anemia. a. Secondary to probable blood loss from fracture and surgery. b. Hemoglobin improved to 10.3 as of 06/08/2018. 4. Vitamin D deficiency. 5. Hypertension. a. Control still not quite adequate. PLAN: Continue PT and OT. We will add hydrochlorothiazide 12.5 mg to help with her pressure control. Job ID: [id number] [facility]
[2018-06-16] MEDS: Polyethylene Glycol 3350 17 GM Packet PO SCH (08:25)
[2018-06-16] MEDS: Hydrochlorothiazide 25 MG TAB PO SCH (08:26)
[2018-06-16] MEDS: Enoxaparin Sodium 30 MG/0.3 ML SYRINGE SC SCH (08:26)
[2018-06-16] MEDS: Docusate 100 MG CAP PO SCH (08:27)
[2018-06-16] MEDS: Lisinopril 5 MG TAB PO SCH (08:27)
[2018-06-16] MEDS: Lantiseptic Ointment 130 GM JAR TOP SCH ×2 (08:29→20:54)
[2018-06-16] MEDS: Lisinopril 10 MG TAB PO SCH ×2 (10:18→20:54)
--- NOTE | 2018-06-16 15:46 | PRG ---
DATE OF SERVICE: 06/16/2018 SUBJECTIVE: The patient says she is doing good. She is walking further now that she is able to partial weightbear on that right leg. Overall strength is improving. OBJECTIVE: GENERAL: The patient is sitting up on NuStep, working on her arms and her legs. She looks very comfortable and in no distress. VITAL SIGNS: Her temperature is 97.9, pulse 69, respirations 18, O2 saturation 100% on room air, and blood pressure 191/81. Has not yet had her morning medications , but last evening pressure was 177/77. LUNGS: Clear. HEART: Regular rate. EXTREMITIES: No edema. ASSESSMENT: 1. Generalized weakness and gait abnormality;. a. Following a fall with a fracture of the right distal femur, requiring open reduction and internal fixation. b. Initially nonweightbearing. c. Partial weightbearing at 50% beginning on 06/09/2018. d. Improved, walking now up to 150 feet with rolling walker and partial weightbearing on the right. Transfers with supervision as of 2017. 2. Closed, mildly displaced oblique fracture of the right distal femur secondary to a fall. a. Status post open reduction and internal fixation with an intramedullary radha with two cross locking screws distal and one proximal by Dr. Jackson on 04/28/2018. a. Status post open reduction internal fixation with an intramedullary radha with two cross-locking screws distally and 1 cross-locking screw proximally by Dr. Jackson on 04/28/2018.. b. Continued improvement and has been on partial weightbearing 50% since . c. Excellent progress 3. Anemia. a. Secondary to probable blood loss from fracture and surgery. b. Hemoglobin improved to 10.3 as of 06/08/2018. 4. Vitamin D deficiency. 5. Hypertension. a. Not adequately controlled as of 06/16/2018. PLAN: Continue PT and OT. We will increase lisinopril to 20 mg b.i.d. [facility]: [id number] [facility]
[2018-06-17] MEDS: Enoxaparin Sodium 30 MG/0.3 ML SYRINGE SC SCH (09:02)
[2018-06-17] MEDS: Docusate 100 MG CAP PO SCH (09:03)
[2018-06-17] MEDS: Lisinopril 10 MG TAB PO SCH ×2 (09:03→20:17)
[2018-06-17] MEDS: Polyethylene Glycol 3350 17 GM Packet PO SCH (09:03)
[2018-06-17] MEDS: Hydrochlorothiazide 25 MG TAB PO SCH (09:03)
[2018-06-17] MEDS: Lantiseptic Ointment 130 GM JAR TOP SCH ×2 (09:05→20:17)
--- NOTE | 2018-06-17 14:42 | PRG ---
DATE OF SERVICE: 06/17/2018 SUBJECTIVE: The patient says she is doing good. She continues to work with physical therapy and she is now walking up to 150 feet twice today with a rolling walker with supervision with weightbearing on the right up to 50%. She is transferring primarily with supervision. OBJECTIVE: GENERAL: The patient looks better. She is sitting up in a chair. She is alert, appears in no distress. VITAL SIGNS: Her temp 98.9; ; blood pressure 177/77, earlier was 160/ 71, and last evening 123/58; O2 saturation 95% on room air. LUNGS: Clear. HEART: Regular rate. EXTREMITIES: Show trace edema. ASSESSMENT: 1. Generalized weakness and gait abnormality;. a. Following a fall with a fracture of the right distal femur, requiring open reduction and internal fixation. b. Initially nonweightbearing. c. Partial weightbearing at 50% beginning on 06/09/2018. d. Improved, walking now up to 150 feet with rolling walker and partial weightbearing on the right. Transfers with supervision as of 2017. 2. Closed, mildly displaced oblique fracture of the right distal femur secondary to a fall. a. Status post open reduction internal fixation with an intramedullary radha with two cross-locking screws distally and 1 cross-locking screw proximally by Dr. Jackson on 04/28/2018.. b. Continued improvement and has been on partial weightbearing 50% since . c. Excellent progress 3. Anemia. a. Secondary to probable blood loss from fracture and surgery. b. Hemoglobin improved to 10.3 as of 06/08/2018. 4. Vitamin D deficiency. 5. Hypertension. a. Controlled a little better as of 06/17/2018. PLAN: Continue present care. Continue PT and OT. [facility] [id number] [facility]
[2018-06-18] MEDS: Hydrochlorothiazide 25 MG TAB PO SCH (08:39)
[2018-06-18] MEDS: Polyethylene Glycol 3350 17 GM Packet PO SCH (08:40)
[2018-06-18] MEDS: Docusate 100 MG CAP PO SCH (08:40)
[2018-06-18] MEDS: Lisinopril 10 MG TAB PO SCH ×2 (08:40→20:21)
[2018-06-18] MEDS: Lantiseptic Ointment 130 GM JAR TOP SCH ×2 (08:41→20:22)
[2018-06-18] MEDS: Enoxaparin Sodium 30 MG/0.3 ML SYRINGE SC SCH (08:41)
[2018-06-19] MEDS: Polyethylene Glycol 3350 17 GM Packet PO SCH (08:42)
[2018-06-19] MEDS: Hydrochlorothiazide 25 MG TAB PO SCH (08:43)
[2018-06-19] MEDS: Lisinopril 10 MG TAB PO SCH ×2 (08:43→20:31)
[2018-06-19] MEDS: Enoxaparin Sodium 30 MG/0.3 ML SYRINGE SC SCH (08:43)
[2018-06-19] MEDS: Docusate 100 MG CAP PO SCH (08:43)
[2018-06-19] MEDS: Lantiseptic Ointment 130 GM JAR TOP SCH ×2 (08:44→20:32)
[2018-06-20] MEDS: Polyethylene Glycol 3350 17 GM Packet PO SCH (08:36)
[2018-06-20] MEDS: Hydrochlorothiazide 25 MG TAB PO SCH (08:37)
[2018-06-20] MEDS: Docusate 100 MG CAP PO SCH (08:37)
[2018-06-20] MEDS: Lisinopril 10 MG TAB PO SCH ×2 (08:37→20:26)
[2018-06-20] MEDS: Lantiseptic Ointment 130 GM JAR TOP SCH ×2 (08:38→20:27)
[2018-06-20] MEDS: Enoxaparin Sodium 30 MG/0.3 ML SYRINGE SC SCH (08:39)
--- NOTE | 2018-06-20 12:51 | PRG ---
DATE OF SERVICE: 06/20/2018 SUBJECTIVE: The patient thinks she is doing well. She said she has already been to physical therapy this morning. OBJECTIVE: GENERAL: The patient is sitting up in her chair. She is alert, appears in no distress. VITAL SIGNS: Her temperature 98.1, pulse 63, respirations 18, O2 saturation 95% on room air, blood pressure 147/69. LUNGS: Clear. HEART: Regular rate. EXTREMITIES: No edema. ASSESSMENT: 1. Generalized weakness and gait abnormality;. a. Following a fall with a fracture of the right distal femur, requiring open reduction and internal fixation. b. Initially nonweightbearing. c. Partial weightbearing at 50% beginning on 06/09/2018. d. Improved, walking now up to 150 feet with rolling walker and partial weightbearing on the right. Transfers with supervision as of 2017. 2. Closed, mildly displaced oblique fracture of the right distal femur secondary to a fall. a. Status post open reduction and internal fixation with an intramedullary radha with two cross locking screws distal and one proximal by Dr. Jackson on 04/28/2018. a. Status post open reduction internal fixation with an intramedullary radha with two cross-locking screws distally and 1 cross-locking screw proximally by Dr. Jackson on 04/28/2018.. b. Continued improvement and has been on partial weightbearing 50% since . c. Excellent progress 3. Anemia. a. Secondary to probable blood loss from fracture and surgery. b. Hemoglobin improved to 10.3 as of 06/08/2018. 4. Vitamin D deficiency. 5. Hypertension. a. Controlled as of 06/20/2018. PLAN: Continue present care. Continue PT and OT. [facility] ID: [id number] [facility]
[2018-06-21] MEDS: Hydrochlorothiazide 25 MG TAB PO SCH (09:03)
[2018-06-21] MEDS: Aspirin 81 mg Enteric Coated Tablet PO SCH (09:03)
[2018-06-21] MEDS: Polyethylene Glycol 3350 17 GM Packet PO SCH (09:03)
[2018-06-21] MEDS: Lisinopril 10 MG TAB PO SCH ×2 (09:03→20:29)
[2018-06-21] MEDS: Docusate 100 MG CAP PO SCH (09:07)
[2018-06-21] MEDS: Lantiseptic Ointment 130 GM JAR TOP SCH ×2 (09:08→20:30)
--- NOTE | 2018-06-21 11:46 | PRG ---
DATE OF SERVICE: 06/21/2018 SUBJECTIVE: The patient said she is doing good. She continues to progress with therapy. Her leg has not been hurting her. Occasionally, it is a little sore. OBJECTIVE: GENERAL: The patient is sitting up in her chair. She is alert, appears very comfortable. VITAL SIGNS: Her temperature is 97, pulse 68, respirations 18, O2 saturation 97% on room air, and blood pressure 155/70. LUNGS: Clear. HEART: Regular rate. ASSESSMENT: 1. Generalized weakness and gait abnormality;. a. Following a fall with a fracture of the right distal femur, requiring open reduction and internal fixation. b. Initially nonweightbearing. c. Partial weightbearing at 50% beginning on 06/09/2018. d. Improved. Walking further with partial weightbearing on the right up to 50%. Transferring easier as of 06/21/2018. 2. Closed, mildly displaced oblique fracture of the right distal femur secondary to a fall. a. Status post open reduction and internal fixation with an intramedullary radha with two cross locking screws distal and one proximal by Dr. Jackson on 04/28/2018. a. Status post open reduction internal fixation with an intramedullary radha with two cross-locking screws distally and 1 cross-locking screw proximally by Dr. Jackson on 04/28/2018.. b. Continued improvement and has been on partial weightbearing 50% since 06/09/2018. c. Continued progress as of 06/21/2018. 3. Anemia. a. Secondary to probable blood loss from fracture and surgery. b. Hemoglobin improved to 10.3 as of 06/08/2018. 4. Vitamin D deficiency. 5. Hypertension. a. Controlled as of 06/21/2018. PLAN: Continue present care. We will discontinue Lovenox and place the patient on low-dose aspirin. Job ID: [id number]
[2018-06-22] MEDS: Docusate 100 MG CAP PO SCH (08:13)
[2018-06-22] MEDS: Lisinopril 10 MG TAB PO SCH ×2 (08:13→21:12)
[2018-06-22] MEDS: Hydrochlorothiazide 25 MG TAB PO SCH (08:14)
[2018-06-22] MEDS: Aspirin 81 mg Enteric Coated Tablet PO SCH (08:14)
[2018-06-22] MEDS: Polyethylene Glycol 3350 17 GM Packet PO SCH (08:14)
[2018-06-22] MEDS: Lantiseptic Ointment 130 GM JAR TOP SCH ×2 (08:14→21:13)
[2018-06-23] MEDS: Lisinopril 10 MG TAB PO SCH ×2 (09:16→20:15)
[2018-06-23] MEDS: Hydrochlorothiazide 25 MG TAB PO SCH (09:16)
[2018-06-23] MEDS: Aspirin 81 mg Enteric Coated Tablet PO SCH (09:16)
[2018-06-23] MEDS: Lantiseptic Ointment 130 GM JAR TOP SCH ×2 (09:16→20:16)
[2018-06-23] MEDS: Docusate 100 MG CAP PO SCH (09:16)
[2018-06-23] MEDS: Polyethylene Glycol 3350 17 GM Packet PO SCH (09:17)
--- NOTE | 2018-06-23 10:05 | PRG ---
DATE OF SERVICE: 06/23/2018 SUBJECTIVE: The patient thinks she is doing better. She is making good progress with PT. They continued to work with her. The patient lives at home alone, so they are trying to help her functional capabilities to further improve such that she can resume her self-care once going home. Even doing this, she is probably going to need someone during the transitional period. OBJECTIVE: GENERAL: The patient is sitting on the NuStep at PT, she is working out. She looks comfortable. VITAL SIGNS: Her temp is 97.8, pulse 74, respirations 16, O2 saturations 96% on room air, and blood pressure 186/81 this is before her morning medications, last evening pressure 154/68. LUNGS: Clear. HEART: Regular rate. EXTREMITIES: Her lower extremities have trace edema. ASSESSMENT: 1. Generalized weakness and gait abnormality;. a. Following a fall with a fracture of the right distal femur, requiring open reduction and internal fixation. b. Initially nonweightbearing. c. Partial weightbearing at 50% beginning on 06/09/2018. d. Improved. Walking further with partial weightbearing on the right up to 50%. Transferring easier as of 06/23/2018. 2. Closed, mildly displaced oblique fracture of the right distal femur secondary to a fall. a. Status post open reduction and internal fixation with an intramedullary radha with two cross locking screws distal and one proximal by Dr. Jackson on 04/28/2018. b. Continued improvement and has been on partial weightbearing 50% since . c. Continued progress as of 06/21/2018. 3. Anemia. a. Secondary to probable blood loss from fracture and surgery. b. Hemoglobin improved to 10.3 as of 06/08/2018. 4. Vitamin D deficiency. 5. Hypertension. a. Still has episodes, where the pressure is little elevated. PLAN: Continue PT. Therapist are trying to work with her to help her master those functional capabilities such that she can help with her self-care more when she is discharged. The patient has a little edema in the legs. We will try and increase her hydrochlorothiazide 25 mg and use knee-high support hose. Job ID: [id number] [facility]
[2018-06-24 05:33] LABS: Anion Gap 13 mmol/L (10-20); BUN (Urea Nitrogen) 20 mg/dL (9.8-20.1); Calc. Creatinine Clearance 40 mL/min (70-130); Calcium 9.2 mg/dL (7.8-10.44); Carbon Dioxide 28 mmol/L (23-31); Chloride 104 mmol/L (98-107); Estimated GFR-MDRD 63; Glucose 94 mg/dL (83-110); Potassium 4.8 mmol/L (3.5-5.1); Sodium 140 mmol/L (136-145)
[2018-06-24 05:36] LABS: #Basophils 0.2 thou/uL (0.0-0.2); #Eosinphils 0.1 thou/uL (0.0-0.7); #Lymphocytes 1.2 thou/uL (1.20-3.40); #Monocytes 0.6 thou/uL (0.11-0.59); #Neutrophils 4.6 thou/uL (1.40-6.50); %Basophils 2.9 % (0.0-1.0); %Eosinophils 2.1 % (0.0-10.0); %Lymphocytes 18.1 % (21.0-51.0); %Neutrophils 67.9 % (42.0-75.0); Hemoglobin 11.5 g/dL (12.0-16.0); Mean Corpuscular HGB CONC 32.6 g/dL (32.0-36.0); Mean Platelet Volume 6.2 fL (7.4-10.4); Platelet Count 365 thou/uL (130-400); RBC Distribution Width 13.1 % (11.5-14.5); Red Blood Cell (RBC) Count 3.83 mill/uL (4.20-5.40); White Blood Cell (WBC) Count 6.7 thou/uL (4.8-10.8)
[2018-06-24] MEDS: Docusate 100 MG CAP PO SCH (08:58)
[2018-06-24] MEDS: Aspirin 81 mg Enteric Coated Tablet PO SCH (08:58)
[2018-06-24] MEDS: Polyethylene Glycol 3350 17 GM Packet PO SCH (08:58)
[2018-06-24] MEDS: Lisinopril 10 MG TAB PO SCH ×2 (08:59→21:15)
[2018-06-24] MEDS: Hydrochlorothiazide 25 MG TAB PO SCH (08:59)
[2018-06-24] MEDS: Lantiseptic Ointment 130 GM JAR TOP SCH ×2 (09:03→21:15)
[2018-06-25] MEDS: Aspirin 81 mg Enteric Coated Tablet PO SCH (08:21)
[2018-06-25] MEDS: Polyethylene Glycol 3350 17 GM Packet PO SCH (08:21)
[2018-06-25] MEDS: Docusate 100 MG CAP PO SCH (08:21)
[2018-06-25] MEDS: Hydrochlorothiazide 25 MG TAB PO SCH (08:21)
[2018-06-25] MEDS: Lisinopril 10 MG TAB PO SCH ×2 (08:22→20:12)
[2018-06-25] MEDS: Lantiseptic Ointment 130 GM JAR TOP SCH ×2 (08:22→20:12)
[2018-06-26] MEDS: Polyethylene Glycol 3350 17 GM Packet PO SCH (08:52)
[2018-06-26] MEDS: Lisinopril 10 MG TAB PO SCH ×2 (08:53→20:36)
[2018-06-26] MEDS: Lantiseptic Ointment 130 GM JAR TOP SCH ×2 (08:54→20:36)
[2018-06-26] MEDS: Docusate 100 MG CAP PO SCH (08:54)
[2018-06-26] MEDS: Hydrochlorothiazide 25 MG TAB PO SCH (08:54)
[2018-06-26] MEDS: Aspirin 81 mg Enteric Coated Tablet PO SCH (08:54)
[2018-06-27] MEDS ORDERED: Lantiseptic Ointment 130 GM JAR TOP PRN (08:06)
[2018-06-27] MEDS: Polyethylene Glycol 3350 17 GM Packet PO SCH (08:58)
[2018-06-27] MEDS: Aspirin 81 mg Enteric Coated Tablet PO SCH (08:58)
[2018-06-27] MEDS: Lisinopril 10 MG TAB PO SCH ×2 (08:58→20:18)
[2018-06-27] MEDS: Docusate 100 MG CAP PO SCH (08:58)
[2018-06-27] MEDS: Hydrochlorothiazide 25 MG TAB PO SCH (08:58)
--- NOTE | 2018-06-27 11:00 | PRG ---
DATE OF SERVICE: 06/24/2018 SUBJECTIVE: The patient says she is doing good. She said she is doing better with therapy. She is wearing her support hose and this seems like it is helping with the swelling. OBJECTIVE: GENERAL: The patient is lying in bed. She looks very comfortable, in no distress. VITAL SIGNS: Show a temperature 97.3, pulse 82, blood pressure 128/69, respirations 16, and O2 saturation 95% on room air. LUNGS: Clear. HEART: Regular rate. EXTREMITIES: Lower extremities, there is no edema in the left lower extremity. There is very mild in the right ankle and she is wearing her support hose up to the knees. ASSESSMENT: 1. Generalized weakness and gait abnormality;. a. Following a fall with a fracture of the right distal femur, requiring open reduction and internal fixation. b. Initially nonweightbearing. c. Partial weightbearing at 50% beginning on 06/09/2018. d. Improved. Walking further with partial weightbearing on the right up to 50%. Transferring easier as of 06/24/2018. 2. Closed, mildly displaced oblique fracture of the right distal femur secondary to a fall. a. Status post open reduction and internal fixation with an intramedullary radha with two cross locking screws distal and one proximal by Dr. Jackson on 04/28/2018. a. Status post open reduction internal fixation with an intramedullary radha with two cross-locking screws distally and 1 cross-locking screw proximally by Dr. Jackson on 04/28/2018.. b. Continued improvement and has been on partial weightbearing 50% since . c. Continued progress as of 06/24/2018. 3. Anemia. a. Secondary to probable blood loss from fracture and surgery. b. Hemoglobin improved to 10.3 as of 06/08/2018. 4. Vitamin D deficiency. 5. Hypertension. a. Better controlled as of 06/24. PLAN: Continue present care. Continue PT. Discussed with the patient about her post hospital care. Recommend when she goes home, that she either plan on staying with someone or someone with her during the transitional. She hopes to be able to go back to independent living as before the fracture. Job ID: [id number] [facility]
--- NOTE | 2018-06-27 11:05 | PRG ---
DATE OF SERVICE: 06/27/2018 SUBJECTIVE: The patient says she is doing better. Therapist says she is transferring independently. She is walking further. Strength is improving. The patient has no complaints. OBJECTIVE: GENERAL: The patient is just returning from physical therapy, walking with her walker, and sitting in her chair. She looks very comfortable and in no distress. VITAL SIGNS: Her temperature is 98.4, pulse 73, blood pressure 140/63, respirations 18, O2 saturation 95%. LUNGS: Clear. HEART: Regular rate. EXTREMITIES: No edema. ASSESSMENT: 1. Generalized weakness and gait abnormality;. a. Following a fall with a fracture of the right distal femur, requiring open reduction and internal fixation. b. Initially nonweightbearing. c. Partial weightbearing at 50% beginning on 06/09/2018. d. Improved. Walking further with partial weightbearing on the right using her walker. Transferring independently as of 06/27/2018. 2. Closed, mildly displaced oblique fracture of the right distal femur secondary to a fall. a. Status post open reduction and internal fixation with an intramedullary radha with two cross locking screws distal and one proximal by Dr. Jackson on 04/28/2018. a. Status post open reduction internal fixation with an intramedullary radha with two cross-locking screws distally and 1 cross-locking screw proximally by Dr. Jackson on 04/28/2018.. b. Continued improvement and has been on partial weightbearing 50% since . c. Continued progress as of 06/27/2018. 3. Anemia. a. Secondary to probable blood loss from fracture and surgery. b. Hemoglobin improved to 10.3 as of 06/08/2018. 4. Vitamin D deficiency. 5. Hypertension. a. a. Controlled as of 06/27/2018. PLAN: Continue present care. Continue PT and OT. Job ID: [id number] [facility]
[2018-06-28] MEDS: Hydrochlorothiazide 25 MG TAB PO SCH (08:26)
[2018-06-28] MEDS: Polyethylene Glycol 3350 17 GM Packet PO SCH (08:26)
[2018-06-28] MEDS: Aspirin 81 mg Enteric Coated Tablet PO SCH (08:26)
[2018-06-28] MEDS: Lisinopril 10 MG TAB PO SCH ×2 (08:27→20:46)
[2018-06-28] MEDS: Docusate 100 MG CAP PO SCH (08:27)
[2018-06-29] MEDS: Polyethylene Glycol 3350 17 GM Packet PO SCH (09:06)
[2018-06-29] MEDS: Aspirin 81 mg Enteric Coated Tablet PO SCH (09:06)
[2018-06-29] MEDS: Lisinopril 10 MG TAB PO SCH ×2 (09:06→20:17)
[2018-06-29] MEDS: Docusate 100 MG CAP PO SCH (09:06)
[2018-06-29] MEDS: Hydrochlorothiazide 25 MG TAB PO SCH (09:06)
--- NOTE | 2018-06-29 14:53 | PRG ---
DATE OF SERVICE: 06/29/2018 SUBJECTIVE: The patient says she is doing fine. She continues to make progress on her therapy. This morning, she is in the therapy department working on the [employer]. OBJECTIVE: GENERAL: The patient is alert, working out on the [place], looks in no distress. VITAL SIGNS: Her temperature is 97.4, pulse 76, respirations 18, O2 saturation 98% on room air, and blood pressure 127/87. Weight 118. LUNGS: Clear. HEART: Regular rate. EXTREMITIES: No edema. ASSESSMENT: 1. Generalized weakness and gait abnormality;. a. Following a fall with a fracture of the right distal femur, requiring open reduction and internal fixation. b. Initially nonweightbearing. c. Partial weightbearing at 50% beginning on 06/09/2018. d. Improved. Walking further with partial weightbearing on the right using her walker. Transferring independently as of 06/29/2018. 2. Closed, mildly displaced oblique fracture of the right distal femur secondary to a fall. a. Status post open reduction and internal fixation with an intramedullary radha with two cross locking screws distal and one proximal by Dr. Jackson on 04/28/2018. a. Status post open reduction internal fixation with an intramedullary radha with two cross-locking screws distally and 1 cross-locking screw proximally by Dr. Jackson on 04/28/2018.. b. Continued improvement and has been on partial weightbearing 50% since . c. Continued progress as of 06/29/2018. 3. Anemia. a. Secondary to probable blood loss from fracture and surgery. b. Hemoglobin improved to 10.3 as of 06/08/2018. 4. Vitamin D deficiency. 5. Hypertension. a. a. Controlled as of 06/29/2018. PLAN: Continue PT and OT. Continue present medicines. [facility] ID: [id number] [facility]
[2018-06-30] MEDS: Hydrochlorothiazide 25 MG TAB PO SCH (08:20)
[2018-06-30] MEDS: Lisinopril 10 MG TAB PO SCH ×2 (08:20→20:18)
[2018-06-30] MEDS: Polyethylene Glycol 3350 17 GM Packet PO SCH (08:20)
[2018-06-30] MEDS: Aspirin 81 mg Enteric Coated Tablet PO SCH (08:21)
[2018-06-30] MEDS: Docusate 100 MG CAP PO SCH (08:21)
[2018-07-01] MEDS: Polyethylene Glycol 3350 17 GM Packet PO SCH (09:32)
[2018-07-01] MEDS: Docusate 100 MG CAP PO SCH (09:32)
[2018-07-01] MEDS: Lisinopril 10 MG TAB PO SCH ×2 (09:32→20:38)
[2018-07-01] MEDS: Aspirin 81 mg Enteric Coated Tablet PO SCH (09:32)
[2018-07-01] MEDS: Hydrochlorothiazide 25 MG TAB PO SCH (09:32)
--- NOTE | 2018-07-01 12:47 | PRG ---
DATE OF SERVICE: 07/01/2018 SUBJECTIVE: The patient said that she is doing good. Therapist says she is walking further and is stronger. She uses her walker and just standby assistance. She is transferring independently, still required to standby assistance and going to the bathroom, she has standby assistance. OBJECTIVE: GENERAL: The patient is just returning from physical therapy, has walked to her room and sitting down. She is alert, appears very comfortable, in no distress. VITAL SIGNS: Her temperature is 98.6. Pulse 70. Respirations 18. O2 saturation is 94% on room air. Blood pressure last evening 132/61. This morning, pressure is elevated to 192/80, but she has not yet had her morning medications. LUNGS: Clear. HEART: Regular rate. EXTREMITIES: No edema. ASSESSMENT: : 1. Generalized weakness and gait abnormality;. a. Following a fall with a fracture of the right distal femur, requiring open reduction and internal fixation. b. Initially nonweightbearing. c. Partial weightbearing at 50% beginning on 06/09/2018. d. Improved. Walking further with partial weightbearing on the right using her walker. Transferring independently as of 07/01/2018. 2. Closed, mildly displaced oblique fracture of the right distal femur secondary to a fall. a. Status post open reduction and internal fixation with an intramedullary radha with two cross locking screws distal and one proximal by Dr. Jackson on 04/28/2018. a. Status post open reduction internal fixation with an intramedullary radha with two cross-locking screws distally and 1 cross-locking screw proximally by Dr. Jackson on 04/28/2018.. b. Continued improvement and has been on partial weightbearing 50% since . c. Continued progress as of 07/01/2018. 3. Anemia. a. Secondary to probable blood loss from fracture and surgery. b. Hemoglobin improved to 10.3 as of 06/08/2018. 4. Vitamin D deficiency. 5. Hypertension. a. Controlled as of 07/01/2018. PLAN: Continue present care. Continue PT. Discussed with the patient about post hospital care. She said she will have some grand-kids that will assist her when she goes home. She lives by herself. She is wanting to stay here until she is at full weightbearing. She is due to see orthopedic surgeon on 07/25, anticipating that he will increase her weightbearing. Once she does go home, I have recommended that someone stay with her at least during her transitional period. Job ID: [id number] [facility]
[2018-07-02] MEDS: Polyethylene Glycol 3350 17 GM Packet PO SCH (08:55)
[2018-07-02] MEDS: Hydrochlorothiazide 25 MG TAB PO SCH (08:56)
[2018-07-02] MEDS: Docusate 100 MG CAP PO SCH (08:56)
[2018-07-02] MEDS: Aspirin 81 mg Enteric Coated Tablet PO SCH (08:56)
[2018-07-02] MEDS: Lisinopril 10 MG TAB PO SCH ×2 (08:56→20:52)
[2018-07-03] MEDS: Hydrochlorothiazide 25 MG TAB PO SCH (08:20)
[2018-07-03] MEDS: Aspirin 81 mg Enteric Coated Tablet PO SCH (08:20)
[2018-07-03] MEDS: Docusate 100 MG CAP PO SCH (08:20)
[2018-07-03] MEDS: Polyethylene Glycol 3350 17 GM Packet PO SCH (08:20)
[2018-07-03] MEDS: Lisinopril 10 MG TAB PO SCH ×2 (08:20→19:55)
[2018-07-04] MEDS: Polyethylene Glycol 3350 17 GM Packet PO SCH (08:33)
[2018-07-04] MEDS: Lisinopril 10 MG TAB PO SCH ×2 (08:33→21:02)
[2018-07-04] MEDS: Hydrochlorothiazide 25 MG TAB PO SCH (08:34)
[2018-07-04] MEDS: Aspirin 81 mg Enteric Coated Tablet PO SCH (08:34)
[2018-07-04] MEDS: Docusate 100 MG CAP PO SCH (08:38)
[2018-07-05] MEDS: Polyethylene Glycol 3350 17 GM Packet PO SCH (08:27)
[2018-07-05] MEDS: Hydrochlorothiazide 25 MG TAB PO SCH (08:27)
[2018-07-05] MEDS: Lisinopril 10 MG TAB PO SCH ×2 (08:27→20:57)
[2018-07-05] MEDS: Aspirin 81 mg Enteric Coated Tablet PO SCH (08:27)
[2018-07-05] MEDS: Docusate 100 MG CAP PO SCH (08:27)
--- NOTE | 2018-07-05 14:55 | PRG ---
DATE OF SERVICE: 07/04/2018 SUBJECTIVE: The patient says she is doing fine. She had no complaint. She is making great strides with physical therapy. OBJECTIVE: GENERAL: The patient is sitting up in her bed. She is alert, looks very comfortable. VITAL SIGNS: Her temperature is 97.7, pulse 69, respirations 18, O2 saturation 96% on room air, and blood pressure 167/73. LUNGS: Clear. HEART: Regular rate. EXTREMITIES: No edema. ASSESSMENT: 1. Generalized weakness and gait abnormality;. a. Following a fall with a fracture of the right distal femur, requiring open reduction and internal fixation. b. Initially nonweightbearing. c. Partial weightbearing at 50% beginning on 06/09/2018. d. Improved. Walking further with partial weightbearing on the right using her walker. Transferring independently as of 07/04/2018. 2. Closed, mildly displaced oblique fracture of the right distal femur secondary to a fall. a. Status post open reduction and internal fixation with an intramedullary radah with two cross locking screws distal and one proximal by Dr. Jackson on 04/28/2018. a. Status post open reduction internal fixation with an intramedullary radha with two cross-locking screws distally and 1 cross-locking screw proximally by Dr. Jackson on 04/28/2018.. b. Continued improvement and has been on partial weightbearing 50% since . c. Continued progress as of 07/04/2018. 3. Anemia. a. Secondary to probable blood loss from fracture and surgery. b. Hemoglobin improved to 10.3 as of 06/08/2018. 4. Vitamin D deficiency. 5. Hypertension. a. Controlled as of 07/01/2018. PLAN: Continue present care. Continue PT and OT. [facility] [id number] [facility]
[2018-07-06] MEDS: Hydrochlorothiazide 25 MG TAB PO SCH (08:04)
[2018-07-06] MEDS: Lisinopril 10 MG TAB PO SCH ×2 (08:04→20:15)
[2018-07-06] MEDS: Polyethylene Glycol 3350 17 GM Packet PO SCH (08:05)
[2018-07-06] MEDS: Aspirin 81 mg Enteric Coated Tablet PO SCH (08:05)
[2018-07-06] MEDS: Docusate 100 MG CAP PO SCH (08:05)
--- NOTE | 2018-07-06 14:57 | PRG ---
DATE OF SERVICE: 07/06/2018 SUBJECTIVE: The patient thinks she is doing really well with therapy. Therapist says she is walking with just standby assistance, using her walker, and partial weightbearing on the right leg. She is transferring independently, has made excellent overall progress. OBJECTIVE: GENERAL: The patient is just walking back from therapy and now sitting in her chair. She is alert, looks very comfortable, in no distress. VITAL SIGNS: Show a temperature 97.2; pulse 71; respiration 18; O2 saturation 99%; and blood pressure 165/70, last evening 132/64. LUNGS: Clear. HEART: Regular rate. EXTREMITIES: Lower extremities have trace edema. ASSESSMENT: 1. Generalized weakness and gait abnormality;. a. Following a fall with a fracture of the right distal femur, requiring open reduction and internal fixation. b. Initially nonweightbearing. c. Partial weightbearing at 50% beginning on 06/09/2018. d. Improved. Walking further with partial weightbearing on the right using her walker. Transferring independently as of 07/06/2018. 2. Closed, mildly displaced oblique fracture of the right distal femur secondary to a fall. a. Status post open reduction and internal fixation with an intramedullary radha with two cross locking screws distal and one proximal by Dr. Jackson on 04/28/2018. a. Status post open reduction internal fixation with an intramedullary radha with two cross-locking screws distally and 1 cross-locking screw proximally by Dr. Jackson on 04/28/2018.. b. Continued improvement and has been on partial weightbearing 50% since . c. Continued progress as of 07/06/2018. 3. Anemia. a. Secondary to probable blood loss from fracture and surgery. b. Hemoglobin improved to 10.3 as of 06/08/2018. 4. Vitamin D deficiency. 5. Hypertension. a. Controlled as of 07/06/2018. PLAN: Continue PT/OT. The patient is to back see her orthopedic surgeon in July and anticipating she will be able to progress to full weightbearing. After that , we will see plans on returning to her home. Job ID: [id number] [facility]
[2018-07-07] MEDS: Aspirin 81 mg Enteric Coated Tablet PO SCH (08:05)
[2018-07-07] MEDS: Polyethylene Glycol 3350 17 GM Packet PO SCH (08:06)
[2018-07-07] MEDS: Docusate 100 MG CAP PO SCH (08:06)
[2018-07-07] MEDS: Hydrochlorothiazide 25 MG TAB PO SCH (08:06)
[2018-07-07] MEDS: Lisinopril 10 MG TAB PO SCH ×2 (08:06→20:29)
[2018-07-08] MEDS: Polyethylene Glycol 3350 17 GM Packet PO SCH (08:21)
[2018-07-08] MEDS: Hydrochlorothiazide 25 MG TAB PO SCH (08:22)
[2018-07-08] MEDS: Lisinopril 10 MG TAB PO SCH ×2 (08:22→19:59)
[2018-07-08] MEDS: Aspirin 81 mg Enteric Coated Tablet PO SCH (08:22)
[2018-07-08] MEDS: Docusate 100 MG CAP PO SCH (08:24)
[2018-07-09] MEDS: Hydrochlorothiazide 25 MG TAB PO SCH (08:49)
[2018-07-09] MEDS: Lisinopril 10 MG TAB PO SCH ×2 (08:49→20:41)
[2018-07-09] MEDS: Polyethylene Glycol 3350 17 GM Packet PO SCH (08:49)
[2018-07-09] MEDS: Aspirin 81 mg Enteric Coated Tablet PO SCH (08:49)
[2018-07-09] MEDS: Docusate 100 MG CAP PO SCH (08:49)
--- NOTE | 2018-07-09 14:45 | PRG ---
DATE OF SERVICE: 07/08/2018 SUBJECTIVE: The patient says she is doing fine. Continues to progress with her therapy. OBJECTIVE: GENERAL: The patient is sitting up in her chair, is alert, talkative, appears comfortable. VITAL SIGNS: Her temp 98.1, pulse 70, respirations 18, blood pressure 125/69, O2 saturation 96% on room air. LUNGS: Clear. HEART: Regular rate. EXTREMITIES: No edema. ASSESSMENT: 1. Generalized weakness and gait abnormality;. a. Following a fall with a fracture of the right distal femur, requiring open reduction and internal fixation. b. Initially nonweightbearing. c. Partial weightbearing at 50% beginning on 06/09/2018. d. Improved. Walking further with partial weightbearing on the right using her walker. Transferring independently as of 07/08/2018. 2. Closed, mildly displaced oblique fracture of the right distal femur secondary to a fall. a. Status post open reduction and internal fixation with an intramedullary radha with two cross locking screws distal and one proximal by Dr. Jackson on 04/28/2018. a. Status post open reduction internal fixation with an intramedullary radha with two cross-locking screws distally and 1 cross-locking screw proximally by Dr. Jackson on 04/28/2018.. b. Continued improvement and has been on partial weightbearing 50% since . c. Continued progress as of 07/08/2018. 3. Anemia. a. Secondary to probable blood loss from fracture and surgery. b. Hemoglobin improved to 10.3 as of 06/08/2018. 4. Vitamin D deficiency. 5. Hypertension. a. Controlled as of 07/08/2018. PLAN: Continue present care. Continue PT/OT. Job ID: [id number] [facility]
[2018-07-10] MEDS: Hydrochlorothiazide 25 MG TAB PO SCH (08:57)
[2018-07-10] MEDS: Aspirin 81 mg Enteric Coated Tablet PO SCH (08:57)
[2018-07-10] MEDS: Polyethylene Glycol 3350 17 GM Packet PO SCH (08:57)
[2018-07-10] MEDS: Lisinopril 10 MG TAB PO SCH ×2 (08:57→21:13)
[2018-07-10] MEDS: Docusate 100 MG CAP PO SCH (08:57)
[2018-07-11] MEDS: Lisinopril 10 MG TAB PO SCH ×2 (08:55→20:11)
[2018-07-11] MEDS: Polyethylene Glycol 3350 17 GM Packet PO SCH (08:55)
[2018-07-11] MEDS: Hydrochlorothiazide 25 MG TAB PO SCH (08:55)
[2018-07-11] MEDS: Aspirin 81 mg Enteric Coated Tablet PO SCH (08:55)
[2018-07-11] MEDS: Docusate 100 MG CAP PO SCH (09:00)
--- NOTE | 2018-07-11 14:14 | PRG ---
DATE OF SERVICE: 07/11/2018 SUBJECTIVE: The patient says she is doing good. She is up and out of her chair, heading down the hallway in her walker to go to Physical Therapy Department. She has no complaints. OBJECTIVE: GENERAL: The patient is alert, appears very comfortable, in no distress. VITAL SIGNS: Her temp 98.8, pulse 75, blood pressure 145/67, O2 saturation 97% on room air. LUNGS: Clear. HEART: Regular rate. EXTREMITIES: No edema. ASSESSMENT: 1. Generalized weakness and gait abnormality;. a. Following a fall with a fracture of the right distal femur, requiring open reduction and internal fixation. b. Initially nonweightbearing. c. Partial weightbearing at 50% beginning on 06/09/2018. d. Improved. Walking further with partial weightbearing on the right using her walker. Transferring independently as of 07/11/2018. 2. Closed, mildly displaced oblique fracture of the right distal femur secondary to a fall. a. Status post open reduction and internal fixation with an intramedullary radha with two cross locking screws distal and one proximal by Dr. Jackson on 04/28/2018. a. Status post open reduction internal fixation with an intramedullary radha with two cross-locking screws distally and 1 cross-locking screw proximally by Dr. Jackson on 04/28/2018.. b. Continued improvement and has been on partial weightbearing 50% since . c. Continued progress as of 07/11/2018. 3. Anemia. a. Secondary to probable blood loss from fracture and surgery. b. Hemoglobin improved to 10.3 as of 06/08/2018. 4. Vitamin D deficiency. 5. Hypertension. a. Controlled as of 07/11/2018. PLAN: Continue present care. Make arrangements for her discharge soon. Job ID: [id number] [facility]
[2018-07-12] MEDS: Polyethylene Glycol 3350 17 GM Packet PO SCH (09:05)
[2018-07-12] MEDS: Lisinopril 10 MG TAB PO SCH ×2 (09:06→20:11)
[2018-07-12] MEDS: Aspirin 81 mg Enteric Coated Tablet PO SCH (09:06)
[2018-07-12] MEDS: Docusate 100 MG CAP PO SCH (09:06)
[2018-07-12] MEDS: Hydrochlorothiazide 25 MG TAB PO SCH (09:06)
[2018-07-13] MEDS: Polyethylene Glycol 3350 17 GM Packet PO SCH (07:58)
[2018-07-13] MEDS: Docusate 100 MG CAP PO SCH (07:58)
[2018-07-13] MEDS: Hydrochlorothiazide 25 MG TAB PO SCH (07:58)
[2018-07-13] MEDS: Lisinopril 10 MG TAB PO SCH ×2 (07:59→20:17)
[2018-07-13] MEDS: Aspirin 81 mg Enteric Coated Tablet PO SCH (07:59)
--- NOTE | 2018-07-13 08:38 | PRG ---
DATE OF SERVICE: 07/13/2018 SUBJECTIVE: The patient is doing well. She has no complaints. She has continued to walk further and continues to transfer independently, and is doing well on the NuStep. OBJECTIVE: GENERAL: The patient has walked around with Physical Therapy with a rolling walker, is now on NuStep, exercises her legs and arms. She is talkative , appears comfortable, in no distress. VITAL SIGNS: Her vital signs show a temperature of 97.6, pulse 62, her respirations 18, O2 saturation 95% on room air, blood pressure 165/72, last evening 118/58. LUNGS: Clear. HEART: Regular rate. EXTREMITIES: No edema. Incisions are well healed. ASSESSMENT: 1. Generalized weakness and gait abnormality;. a. Following a fall with a fracture of the right distal femur, requiring open reduction and internal fixation. b. Initially nonweightbearing. c. Partial weightbearing at 50% beginning on 06/09/2018. d. Improved. Walking further with partial weightbearing on the right using her walker. Transferring independently as of 07/13/2018. 2. Closed, mildly displaced oblique fracture of the right distal femur secondary to a fall. a. Status post open reduction and internal fixation with an intramedullary radha with two cross locking screws distal and one proximal by Dr. Jackson on 04/28/2018. a. Status post open reduction internal fixation with an intramedullary radha with two cross-locking screws distally and 1 cross-locking screw proximally by Dr. Jackson on 04/28/2018.. b. Continued improvement and has been on partial weightbearing 50% since . c. Continued progress as of 07/13/2018. 3. Anemia. a. Secondary to probable blood loss from fracture and surgery. b. Hemoglobin improved to 10.3 as of 06/08/2018. 4. Vitamin D deficiency. 5. Hypertension. a. Controlled as of 07/13/2018. PLAN: Continue present care. The patient due to see the orthopedic surgeon back this month. Recheck CBC and basic metabolic panel in the morning. Job ID: [id number] [facility]
[2018-07-14 05:28] LABS: Anion Gap 16 mmol/L (10-20); BUN (Urea Nitrogen) 27 mg/dL (9.8-20.1); Calc. Creatinine Clearance 38 mL/min (70-130); Carbon Dioxide 24 mmol/L (23-31); Chloride 107 mmol/L (98-107); Estimated GFR-MDRD 60; Glucose 90 mg/dL (83-110); Potassium 4.5 mmol/L (3.5-5.1); Sodium 142 mmol/L (136-145)
[2018-07-14 05:30] LABS: Band 4 % (5-11); Eosinophils 3 % (0-10); Hemoglobin 11.1 g/dL (12.0-16.0); Hypochromia SLIGHT = 6-15 cells (100X) (0-5/hpf); Lymphocytes 32 % (21-51); MDiff Complete? YES; Mean Corpuscular HGB CONC 32.1 g/dL (32.0-36.0); Mean Corpuscular Hemoglobin 29.4 pg (27.0-31.0); Mean Corpuscular Volume 91.6 fL (78.0-98.0); Mean Platelet Volume 6.3 fL (7.4-10.4); Monocytes 9 % (0-10); Neutrophil 50 % (42-75); Platelet Count 353 thou/uL (130-400); Platelet Morphology Comment Appears Adequate; RBC Distribution Width 13.5 % (11.5-14.5); Red Blood Cell (RBC) Count 3.77 mill/uL (4.20-5.40); White Blood Cell (WBC) Count 5.9 thou/uL (4.8-10.8)
[2018-07-14] MEDS: Docusate 100 MG CAP PO SCH (08:28)
[2018-07-14] MEDS: Lisinopril 10 MG TAB PO SCH ×2 (08:28→21:18)
[2018-07-14] MEDS: Hydrochlorothiazide 25 MG TAB PO SCH (08:28)
[2018-07-14] MEDS: Polyethylene Glycol 3350 17 GM Packet PO SCH (08:28)
[2018-07-14] MEDS: Aspirin 81 mg Enteric Coated Tablet PO SCH (08:28)
[2018-07-15] MEDS: Polyethylene Glycol 3350 17 GM Packet PO SCH (08:16)
[2018-07-15] MEDS: Aspirin 81 mg Enteric Coated Tablet PO SCH (08:17)
[2018-07-15] MEDS: Hydrochlorothiazide 25 MG TAB PO SCH (08:17)
[2018-07-15] MEDS: Lisinopril 10 MG TAB PO SCH ×2 (08:17→21:16)
[2018-07-15] MEDS: Docusate 100 MG CAP PO SCH (08:18)
--- NOTE | 2018-07-15 09:40 | PRG ---
DATE OF SERVICE: 07/15/2018 SUBJECTIVE: The patient says she is doing good. She has already been working with physical therapy. She has walked around therapy, transferring independent, and had a workout on the [place]. She is due to see her orthopedic surgeon, Dr. Jackson on 07/21/2018, and she is hoping that she will be allowed full weightbearing then. OBJECTIVE: GENERAL: The patient is sitting in her bedside chair. She is alert , talkative, appears comfortable, and in no distress. VITAL SIGNS: Her temperature is 98.2, pulse 80, respirations 16, O2 saturation 97% on room air, blood pressure 143/65. LUNGS: Clear. HEART: Regular rate. EXTREMITIES: No edema. LABORATORY DATA: From 07/14 shows an H and H of 11.1 and 34.5, white cell count 5900, with 50% segs, 32% lymphocytes, and platelet count of 353,000. Sodium 142 , potassium 4.5, BUN 27, creatinine 0.89, GFR 60. ASSESSMENT: 1. Generalized weakness and gait abnormality;. a. Following a fall with a fracture of the right distal femur, requiring open reduction and internal fixation. b. Initially nonweightbearing. c. Partial weightbearing at 50% beginning on 06/09/2018. d. Improved. Walking further with partial weightbearing on the right using her walker. Transferring independently as of 07/15/2018. 2. Closed, mildly displaced oblique fracture of the right distal femur secondary to a fall. a. Status post open reduction and internal fixation with an intramedullary radha with two cross locking screws distal and one proximal by Dr. Jackson on 04/28/2018. a. Status post open reduction internal fixation with an intramedullary radha with two cross-locking screws distally and 1 cross-locking screw proximally by Dr. Jackson on 04/28/2018.. b. Continued improvement and has been on partial weightbearing 50% since . c. Continued progress as of 07/15/2018. 3. Anemia. a. Secondary to probable blood loss from fracture and surgery. b. Hemoglobin improved to 11.1 as of 07/14/2018. 4. Vitamin D deficiency. 5. Hypertension. a. Controlled as of 07/15/2018. PLAN: Continue PT/OT. The patient is making excellent progress. She will see her orthopedic surgeon, Dr. Jackson on 07/21/2018. If she is allowed full weightbearing, we will plan for her discharge. We will give therapy just a few days to work with her full weightbearing and then I think she will be fine to be discharged home. Job ID: [id number] [facility]
[2018-07-16] MEDS: Aspirin 81 mg Enteric Coated Tablet PO SCH (08:21)
[2018-07-16] MEDS: Hydrochlorothiazide 25 MG TAB PO SCH (08:21)
[2018-07-16] MEDS: Docusate 100 MG CAP PO SCH (08:21)
[2018-07-16] MEDS: Polyethylene Glycol 3350 17 GM Packet PO SCH (08:22)
[2018-07-16] MEDS: Lisinopril 10 MG TAB PO SCH ×2 (08:22→20:15)
[2018-07-17] MEDS: Docusate 100 MG CAP PO SCH (09:09)
[2018-07-17] MEDS: Polyethylene Glycol 3350 17 GM Packet PO SCH (09:09)
[2018-07-17] MEDS: Lisinopril 10 MG TAB PO SCH ×2 (09:09→20:50)
[2018-07-17] MEDS: Hydrochlorothiazide 25 MG TAB PO SCH (09:09)
[2018-07-17] MEDS: Aspirin 81 mg Enteric Coated Tablet PO SCH (09:09)
[2018-07-18] MEDS: Docusate 100 MG CAP PO SCH (08:19)
[2018-07-18] MEDS: Aspirin 81 mg Enteric Coated Tablet PO SCH (08:19)
[2018-07-18] MEDS: Hydrochlorothiazide 25 MG TAB PO SCH (08:19)
[2018-07-18] MEDS: Lisinopril 10 MG TAB PO SCH ×2 (08:19→20:14)
[2018-07-18] MEDS: Polyethylene Glycol 3350 17 GM Packet PO SCH (08:20)
--- NOTE | 2018-07-18 08:46 | PRG ---
DATE OF SERVICE: 07/18/2018 SUBJECTIVE: The patient says she is doing good. She continues to do well with her therapy and is transferring independently. OBJECTIVE: GENERAL: The patient is sitting on the NuStep just completing her workout this morning. She is alert, appears comfortable, in no distress. VITAL SIGNS: Her temperature is 97.8, pulse 73, respirations 20, O2 saturation 97%, blood pressure 150/69, last evening 132/60. LUNGS: Clear. HEART: Regular rate. EXTREMITIES: No edema. ASSESSMENT: 1. Generalized weakness and gait abnormality;. a. Following a fall with a fracture of the right distal femur, requiring open reduction and internal fixation. b. Initially nonweightbearing. c. Partial weightbearing at 50% beginning on 06/09/2018. d. Improved. Walking further with partial weightbearing on the right using her walker. Transferring independently as of 07/18/2018. 2. Closed, mildly displaced oblique fracture of the right distal femur secondary to a fall. a. Status post open reduction and internal fixation with an intramedullary radha with two cross locking screws distal and one proximal by Dr. Jackson on 04/28/2018. a. Status post open reduction internal fixation with an intramedullary radha with two cross-locking screws distally and 1 cross-locking screw proximally by Dr. Jackson on 04/28/2018.. b. Continued improvement and has been on partial weightbearing 50% since . c. Continued healing as of 07/18/2018. 3. Anemia. a. Secondary to probable blood loss from fracture and surgery. b. Hemoglobin improved to 11.1 as of 07/14/2018. 4. Vitamin D deficiency. 5. Hypertension. a. Controlled as of 07/18/2018. PLAN: Continue PT, OT. The patient due to see orthopedic surgeon, Dr. Jackson on , 07/21/2018. Hopefully, she will be full weightbearing after that. We will soon be able to discharge her home. [facility] [id number] [facility]
[2018-07-19] MEDS: Aspirin 81 mg Enteric Coated Tablet PO SCH (08:30)
[2018-07-19] MEDS: Polyethylene Glycol 3350 17 GM Packet PO SCH (08:31)
[2018-07-19] MEDS: Lisinopril 10 MG TAB PO SCH ×2 (08:31→20:37)
[2018-07-19] MEDS: Docusate 100 MG CAP PO SCH (08:31)
[2018-07-19] MEDS: Hydrochlorothiazide 25 MG TAB PO SCH (08:31)
[2018-07-20] MEDS: Polyethylene Glycol 3350 17 GM Packet PO SCH (08:17)
[2018-07-20] MEDS: Hydrochlorothiazide 25 MG TAB PO SCH (08:17)
[2018-07-20] MEDS: Docusate 100 MG CAP PO SCH (08:17)
[2018-07-20] MEDS: Aspirin 81 mg Enteric Coated Tablet PO SCH (08:17)
[2018-07-20] MEDS: Lisinopril 10 MG TAB PO SCH ×2 (08:17→20:08)
--- NOTE | 2018-07-20 12:46 | PRG ---
DATE OF SERVICE: 07/20/2018 SUBJECTIVE: The patient says she is doing well. She is doing good with her therapy. She is walking further. She is scheduled to see her orthopedic surgeon on 07/21/2018. She has not required any tramadol for the last 4 days. OBJECTIVE: GENERAL: The patient is doing very well. She is sitting up in her chair, preparing for breakfast. She is very comfortable. VITAL SIGNS: Showed a temperature of 97.5, pulse 63, respirations 18, O2 saturation 97% on room air, blood pressure 160/65, last evening 133/61. LUNGS: Clear. HEART: Regular rate. EXTREMITIES: No edema. ASSESSMENT: 1. Generalized weakness and gait abnormality;. a. Following a fall with a fracture of the right distal femur, requiring open reduction and internal fixation. b. Initially nonweightbearing. c. Partial weightbearing at 50% beginning on 06/09/2018. d. Improved. Walking further with partial weightbearing on the right using her walker. Transferring independently as of 07/20/2018. 2. Closed, mildly displaced oblique fracture of the right distal femur secondary to a fall. a. Status post open reduction and internal fixation with an intramedullary radha with two cross locking screws distal and one proximal by Dr. Jackson on 04/28/2018. a. Status post open reduction internal fixation with an intramedullary radha with two cross-locking screws distally and 1 cross-locking screw proximally by Dr. Jackson on 04/28/2018.. b. Continued improvement and has been on partial weightbearing 50% since . c. Continued healing as of 07/20/2018. 3. Anemia. a. Secondary to probable blood loss from fracture and surgery. b. Hemoglobin improved to 11.1 as of 07/14/2018. 4. Vitamin D deficiency. 5. Hypertension. a. Controlled as of 07/20/2018. PLAN: Continue PT and OT. The patient is scheduled to see Dr. Jackson in the morning on 07/21/2018. Hopefully, if she will be advanced to full weightbearing, then we will plan for discharge date. Job ID: [id number] MTDD
[2018-07-21] MEDS: Lisinopril 10 MG TAB PO SCH ×2 (07:59→20:21)
[2018-07-21] MEDS: Hydrochlorothiazide 25 MG TAB PO SCH (07:59)
[2018-07-21] MEDS: Aspirin 81 mg Enteric Coated Tablet PO SCH (07:59)
[2018-07-21] MEDS: Polyethylene Glycol 3350 17 GM Packet PO SCH (08:00)
[2018-07-21] MEDS: Docusate 100 MG CAP PO SCH (08:00)
[2018-07-22] MEDS: Aspirin 81 mg Enteric Coated Tablet PO SCH (08:37)
[2018-07-22] MEDS: Lisinopril 10 MG TAB PO SCH ×2 (08:38→20:38)
[2018-07-22] MEDS: Hydrochlorothiazide 25 MG TAB PO SCH (08:38)
[2018-07-22] MEDS: Polyethylene Glycol 3350 17 GM Packet PO SCH (08:39)
[2018-07-22] MEDS: Docusate 100 MG CAP PO SCH (08:39)
--- NOTE | 2018-07-22 12:38 | PRG ---
DATE OF SERVICE: 07/22/2018 SUBJECTIVE: The patient says she is doing well. She saw Dr. Jackson, her orthopedic surgeon, yesterday morning. He x-rayed her leg and was very happy with her progress. He said she can now begin full weightbearing on that right leg and begin ambulating with the assistance of a cane. Physical therapy is helping her with the cane and she is doing pretty well with this, but needs some practice. Family is to make an arrangement for care of her in the home, but may need a few days of prep for this. OBJECTIVE: GENERAL: The patient is sitting up in a chair, is alert, appears very comfortable, in no distress. VITAL SIGNS: Her temperature is 97.9, pulse 67, respirations 16, O2 saturation is 95% on room air, and blood pressure 159/69, last evening 130/60. LUNGS: Clear. HEART: Regular rate. EXTREMITIES: No edema. ASSESSMENT: 1. Generalized weakness and gait abnormality;. a. Following a fall with a fracture of the right distal femur, requiring open reduction and internal fixation. b. Initially nonweightbearing. c. Partial weightbearing at 50% beginning on 06/09/2018. d. Continued improvement. Now, able to fully weightbear on the right leg after visit with Dr. Jackson on 07/21/2018. Learning to utilize a cane as of 2018. 2. Closed, mildly displaced oblique fracture of the right distal femur secondary to a fall. a. Status post open reduction and internal fixation with an intramedullary radha with two cross locking screws distal and one proximal by Dr. Jackson on 04/28/2018. a. Status post open reduction internal fixation with an intramedullary radha with two cross-locking screws distally and 1 cross-locking screw proximally by Dr. Jackson on 04/28/2018.. b. Continued improvement and has been on partial weightbearing 50% since . c. Continued healing as of 07/22/2018. 3. Anemia. a. Secondary to probable blood loss from fracture and surgery. b. Hemoglobin improved to 11.1 as of 07/14/2018. 4. Vitamin D deficiency. 5. Hypertension. a. Controlled as of 07/22/2018. PLAN: Continue PT. They are now working with her and teaching her how to use a cane and letting her practice this. Family is making arrangements for care at home. Anticipate discharge within a few days. Job ID: [id number] [facility]
[2018-07-22 17:09] VITALS: BMI 24.0
[2018-07-23] MEDS: Lisinopril 10 MG TAB PO SCH ×2 (08:34→20:04)
[2018-07-23] MEDS: Aspirin 81 mg Enteric Coated Tablet PO SCH (08:34)
[2018-07-23] MEDS: Hydrochlorothiazide 25 MG TAB PO SCH (08:34)
[2018-07-23] MEDS: Polyethylene Glycol 3350 17 GM Packet PO SCH (08:34)
[2018-07-23] MEDS: Docusate 100 MG CAP PO SCH (08:34)
[2018-07-24] MEDS: Polyethylene Glycol 3350 17 GM Packet PO SCH (08:39)
[2018-07-24] MEDS: Docusate 100 MG CAP PO SCH (08:40)
[2018-07-24] MEDS: Aspirin 81 mg Enteric Coated Tablet PO SCH (08:40)
[2018-07-24] MEDS: Lisinopril 10 MG TAB PO SCH ×2 (08:40→20:50)
[2018-07-24] MEDS: Hydrochlorothiazide 25 MG TAB PO SCH (08:40)
[2018-07-25] MEDS: Polyethylene Glycol 3350 17 GM Packet PO SCH (08:29)
[2018-07-25] MEDS: Lisinopril 10 MG TAB PO SCH ×2 (08:31→20:19)
[2018-07-25] MEDS: Aspirin 81 mg Enteric Coated Tablet PO SCH (08:31)
[2018-07-25] MEDS: Hydrochlorothiazide 25 MG TAB PO SCH (08:31)
[2018-07-25] MEDS: Docusate 100 MG CAP PO SCH (08:34)
--- NOTE | 2018-07-25 15:34 | PRG ---
DATE OF SERVICE: 07/25/2018 SUBJECTIVE: The patient has been doing very well with her physical therapy, very stable with a walker. For the last few days, she has been trying to work with a cane and is not secure with this and is not safe to use this without assistance. She feels much more comfortable using the walker. Her family is making preparations for her back in her home. OBJECTIVE: GENERAL: The patient is sitting. She has just returned from physical therapy to her room, is now sitting in a chair. She is alert, looks very comfortable, in no distress. VITAL SIGNS: Her temperature is 98.2, pulse 84, respirations 16, O2 saturation 96% on room air, blood pressure 155/74, last evening 129/60. LUNGS: Clear. HEART: Regular rate. EXTREMITIES: No edema. ASSESSMENT: 1. Generalized weakness and gait abnormality;. a. Following a fall with a fracture of the right distal femur, requiring open reduction and internal fixation. b. Initially nonweightbearing. c. Partial weightbearing at 50% beginning on 06/09/2018. d. Continued improvement. On full weightbearing since her visit with Dr. Jackson on 07/21/2018. Trying to learn to use a cane, but unstable and feels insecure on this, but does great with a walker as of 07/25/2018. 2. Closed, mildly displaced oblique fracture of the right distal femur secondary to a fall. a. Status post open reduction and internal fixation with an intramedullary radha with two cross locking screws distal and one proximal by Dr. Jackson on 04/28/2018. a. Status post open reduction internal fixation with an intramedullary radha with two cross-locking screws distally and 1 cross-locking screw proximally by Dr. Jackson on 04/28/2018.. b. Continued improvement and has been on partial weightbearing 50% since . c. Continued healing as of 07/25/2018. 3. Anemia. a. Secondary to probable blood loss from fracture and surgery. b. Hemoglobin improved to 11.1 as of 07/14/2018. 4. Vitamin D deficiency. 5. Hypertension. a. Controlled as of 07/25/2018. PLAN The patient feels very insecure with the cane and has to have someone with her to ensure that she can safely walk if she uses a cane. She is very secure and independent with a walker. She will go back to using her walker; can use a cane , but only if she has someone walking and assisting her. Family is making preparations for her at home. The patient will be discharged one day this week since family is ready. Job ID: [id number] MTDD
[2018-07-26] MEDS: Polyethylene Glycol 3350 17 GM Packet PO SCH (08:38)
[2018-07-26] MEDS: Aspirin 81 mg Enteric Coated Tablet PO SCH (08:38)
[2018-07-26] MEDS: Docusate 100 MG CAP PO SCH (08:38)
[2018-07-26] MEDS: Hydrochlorothiazide 25 MG TAB PO SCH (08:38)
[2018-07-26] MEDS: Lisinopril 10 MG TAB PO SCH ×2 (08:38→20:10)
[2018-07-27] MEDS: Aspirin 81 mg Enteric Coated Tablet PO SCH (08:24)
[2018-07-27] MEDS: Docusate 100 MG CAP PO SCH (08:24)
[2018-07-27] MEDS: Polyethylene Glycol 3350 17 GM Packet PO SCH (08:24)
[2018-07-27] MEDS: Hydrochlorothiazide 25 MG TAB PO SCH (08:24)
[2018-07-27] MEDS: Lisinopril 10 MG TAB PO SCH ×2 (08:24→20:02)
[2018-07-28] MEDS: Polyethylene Glycol 3350 17 GM Packet PO SCH (09:34)
[2018-07-28] MEDS: Docusate 100 MG CAP PO SCH (09:35)
[2018-07-28] MEDS: Hydrochlorothiazide 25 MG TAB PO SCH (09:35)
[2018-07-28] MEDS: Aspirin 81 mg Enteric Coated Tablet PO SCH (09:35)
[2018-07-28] MEDS: Lisinopril 10 MG TAB PO SCH ×2 (09:35→20:58)
[2018-07-29 07:04] VITALS: BP 156/66; TEMP 97.4
[2018-07-29] MEDS: Polyethylene Glycol 3350 17 GM Packet PO SCH (08:32)
[2018-07-29] MEDS: Hydrochlorothiazide 25 MG TAB PO SCH (08:33)
[2018-07-29] MEDS: Lisinopril 10 MG TAB PO SCH (08:33)
[2018-07-29] MEDS: Aspirin 81 mg Enteric Coated Tablet PO SCH (08:33)
[2018-07-29] MEDS: Docusate 100 MG CAP PO SCH (08:33)
--- NOTE | 2018-07-29 14:35 | DIS ---
DATE OF ADMISSION: 05/01/2018 DATE OF DISCHARGE: 07/29/2018 Admitted to [facility] on 05/01/2018 and discharged on 07/29/2018. FINAL DIAGNOSES: 1. Generalized weakness and gait abnormality. a. Following a fall with a fracture of the right distal femur, requiring open reduction and internal fixation. b. Initially nonweightbearing. c. Partial weightbearing at 50% starting on 06/09/2018. d. Full weightbearing as of 07/21/2018. e. Excellent progress, ambulating independently with a walker and transferring independently as of 07/29/2018. 2. Closed, mildly displaced oblique fracture of the right distal femur secondary to a fall. a. Status post open reduction and internal fixation with an intramedullary radha with 2 cross-locking screws distal and one cross-locking screw proximally on 04/28/[address] Jackson. b. Excellent healing as of 07/29/2018. 3. Anemia. a. Secondary to a probable blood loss from the fracture surgery. b. Hemoglobin improved to 11.1 as of 07/14/2018. 4. Vitamin D deficiency. 5. Hypertension. a. Controlled as of 07/25/2018. SUMMARY: The patient is an 88-year-old white female, who lives by herself and is independent of all her ADLs, who still drives. She has not had any routine medical problems and the only surgery has been cataract surgery. The patient had a ground level fall on 04/27/2018. The patient was not sure exactly what happened, but thinks she may have tripped and had pain and could not walk after the fall. She was taken to the emergency room, was found to have a distal oblique fracture that was closed with mild displacement of the distal right femur. She was transferred to the [facility] and on 04/28/2018, underwent open reduction and internal fixation using an intramedullary radha, two distal cross-locking screws and one proximal locking screw. This was done by Dr. Jackson. She had no postop complications other than anemia that was felt to be secondary to the fracture and surgery. The patient was placed nonweightbearing and was transferred to [facility] on 05/01/2018 for physical therapy and occupational therapy. HOSPITAL COURSE: The patient was placed on the DVT prophylaxis. She required maximum assistance on transfers initially, particularly with nonweightbearing. Gradually, she began able to tolerate sitting on the side of the bed and then was able to be progress to the chair. Gradually, she was progressed to standing on the left leg with no weightbearing on the right. Her pain was well controlled and she was gradually able to do some ambulation with a walker and with a hopping with no weightbearing on the right. Her right leg for the first few weeks was left in a knee immobilizer. When she saw Dr. Jackson in followup on 06/09, he allowed 50% weightbearing and discontinuation of the knee immobilizer. She continued to do well and was able to progress with the partial weightbearing on the right. On followup visit on 07/21/2018, she was progressed to full weightbearing. He also had suggested a trial of a cane. The patient did not feel stable with the cane, but did very well and felt very secure with the walker. The patient has made very excellent progress throughout her hospital stay. By the time of her discharge, she was consistently walking 150 feet at least twice a day with rolling walker with just supervision. She was transferring independently during her hospitalization. There were issues of elevation of her blood pressure. Gradually, this was controlled with the addition of lisinopril 20 mg b.i.d. and hydrochlorothiazide 25 mg daily. She had good control of her bowels and the constipation was controlled with MiraLAX daily and Colace daily, and Senokot on a p.r.n. basis. Her pain was during later portion of her admission, controlled with Tylenol alone. Family had made arrangements to assist her in the home. Home Health will see her and continue with in-home physical therapy. Her condition was excellent at time for discharge on 07/29/2018. DISPOSITION DIET: Regular diet. No added salt. ACTIVITIES: Ambulate with the use of a walker. MEDICATIONS: 1. Acetaminophen 325 mg 2 every 4 hours as needed. 2. Ecotrin 81 mg daily. 3. Vitamin D3 a 1000 units two tablets daily. 4. Docusate sodium 100 mg daily. 5. Lisinopril 20 mg b.i.d. 6. Hydrochlorothiazide 25 mg daily. 7. MiraLAX 17 g 8 ounces water daily. 8. Senakot two tablets daily as needed. FOLLOWUP: The patient will be seen in my office in two or three weeks with a CBC and basic metabolic panel. Home Health with [facility] will lease picker on her care and arrange for in-home therapy. The patient will follow up with Dr. Jackson, her orthopedic surgeon. CODE STATUS: Full code. Job ID: [id number] MTDD
== END 2018-07-29 11:10 | disposition home or self-care (01) | DRG 561 ==
LOC: MADMS 12:09
PROVIDERS: ADMIT Family Medicine; ATTEND Family Medicine
DX: Z47.89 Encounter for other orthopedic aftercare (principal); R53.1 Weakness; R26.9 Unspecified abnormalities of gait and mobility; Z96.1 Presence of intraocular lens; E55.9 Vitamin D deficiency, unspecified; D64.9 Anemia, unspecified; I10 Essential (primary) hypertension; J06.9 Acute upper respiratory infection, unspecified; J40 Bronchitis, not specified as acute or chronic; K59.00 Constipation, unspecified; S72.401D Unspecified fracture of lower end of right femur, subsequent encounter for closed fracture with routine healing; Z98.41 Cataract extraction status, right eye; Z98.42 Cataract extraction status, left eye; Z98.890 Other specified postprocedural states; W19.XXXD Unspecified fall, subsequent encounter
CPT/HCPCS: 36415; 80048; 81001; 82306; 84443; 85025; 90471; 90662; 90670; G0008; G0009; G8978-GP-CJ; G8978-GP-CK; G8979-GP-CI; G8987-GO-CJ; G8987-GO-CK; G8988-GO-CH; G8988-GO-CI; J1650

== ENCOUNTER 2019-07-04 14:55 | Inpatient (IN) | payer MEDICARE ==
[2019-07-04] MEDS ORDERED: Bisacodyl 10 MG SUPP PR PRN (17:04)
[2019-07-04] MEDS: Acetaminophen 500 MG TAB PO SCH ×2 (17:44→23:03)
[2019-07-04] MEDS: Senokot S 8.6-50 MG TAB PO SCH (20:08)
[2019-07-04] MEDS: Lisinopril 20 MG TAB PO SCH (20:08)
[2019-07-04] MEDS: Aspirin 81 mg Enteric Coated Tablet PO SCH (20:09)
[2019-07-04] MEDS: Ibuprofen 200 MG TAB PO SCH (23:03)
[2019-07-05] MEDS: Acetaminophen 500 MG TAB PO SCH ×4 (05:36→23:27)
[2019-07-05] MEDS: Ibuprofen 200 MG TAB PO SCH ×3 (05:37→23:27)
[2019-07-05] MEDS: Polyethylene Glycol 3350 17 GM Packet PO SCH (09:35)
[2019-07-05] MEDS: Lisinopril 20 MG TAB PO SCH ×2 (09:36→20:53)
[2019-07-05] MEDS: Aspirin 81 mg Enteric Coated Tablet PO SCH ×2 (09:36→20:53)
[2019-07-05] MEDS: Amlodipine 5 MG TAB PO SCH (09:36)
[2019-07-05] MEDS: Senokot S 8.6-50 MG TAB PO SCH ×2 (09:36→20:53)
[2019-07-06] MEDS: Ibuprofen 200 MG TAB PO SCH ×3 (05:42→21:13)
[2019-07-06] MEDS: Acetaminophen 500 MG TAB PO SCH ×4 (05:42→23:30)
[2019-07-06 06:07] LABS: Anion Gap 12 mmol/L (10-20); BUN (Urea Nitrogen) 23 mg/dL (9.8-20.1); Calc. Creatinine Clearance 34 mL/min (70-130); Calcium 8.4 mg/dL (7.8-10.44); Carbon Dioxide 27 mmol/L (23-31); Chloride 107 mmol/L (98-107); Estimated GFR-MDRD 58; Glucose 88 mg/dL (83-110); Potassium 4.7 mmol/L (3.5-5.1); Sodium 141 mmol/L (136-145)
[2019-07-06 06:26] LABS: Eosinophils 2 % (0-10); Lymphocytes 14 % (21-51); MDiff Complete? YES; Mean Corpuscular HGB CONC 30.8 g/dL (32.0-36.0); Mean Platelet Volume 6.7 fL (7.4-10.4); Monocytes 5 % (0-10); Neutrophil 79 % (42-75); Platelet Count 551 thou/uL (130-400); Platelet Morphology Comment Appears Increased; RBC Distribution Width 12.6 % (11.5-14.5); RBC Morphology Normal; Red Blood Cell (RBC) Count 3.45 mill/uL (4.20-5.40); White Blood Cell (WBC) Count 7.5 thou/uL (4.8-10.8)
[2019-07-06] MEDS: Senokot S 8.6-50 MG TAB PO SCH ×2 (08:15→20:30)
[2019-07-06] MEDS: Amlodipine 5 MG TAB PO SCH (08:15)
[2019-07-06] MEDS: Aspirin 81 mg Enteric Coated Tablet PO SCH ×2 (08:15→20:30)
[2019-07-06] MEDS: Polyethylene Glycol 3350 17 GM Packet PO SCH (08:16)
[2019-07-06] MEDS: Lisinopril 20 MG TAB PO SCH ×2 (08:20→20:32)
--- NOTE | 2019-07-06 14:18 | HP ---
CHIEF COMPLAINT: Weakness following a fall and fracture of the left hip. HISTORY OF PRESENT ILLNESS: The patient is an 89-year-old white female, who is independent of her ADLs, who lives at home adjacent to her son and daughter-in- law. She has a history of hypertension, fracture of the right distal femur that required open reduction and internal fixation in April 2018. The patient was getting up from her lounge chair on 06/30/2019 and fell. She did not lose consciousness nor hit her head. She could not get up, but was able to drag herself over to her phone and called her son. Her son came to aid and called EMS. She was taken to the emergency room and admitted to [facility] in [place] with an intertrochanteric fracture of the left hip from 06/30/2019 to 07/04/2019. She underwent an open reduction and internal fixation of the left intertrochanteric femur fracture by Dr. Villalta on 06/30/2019. Her postop course has been unremarkable. She has been up in a chair and also taking a few steps. She has had no complications postop. She was sent to [facility] on for weakness for the purpose of PT and OT to try to help build her strength and functional capability. The patient was seen soon after her admission. She was able to relate to me the history of what had happened. Her son and [id number] with her were able to affirm the story of what had happened. PAST MEDICAL HISTORY: Hospitalized at [facility] from 06/30 to 07/04 for the intertrochanteric fracture of the left hip. The patient had a sideplate and hip screw placed by Dr. Villalta, postop course unremarkable. The patient was hospitalized. The patient had a fracture of the right distal femur, for which she underwent open reduction and internal fixation on 04/28/[address] Jackson with an intramedullary radha with 2 cross locking screws. The patient has hypertension , anemia, vitamin D deficiency. The patient is 2, para 2, both children born by . The patient has had bilateral cataract surgery. PRESENT MEDICATIONS: 1. Acetaminophen 500 mg two every 6 hours as needed. 2. Ibuprofen 400 mg every 8 hours as needed. 3. Aspirin 81 mg b.i.d. 4. Amlodipine 5 mg daily. 5. MiraLAX 17 g 8 ounces of water daily. 6. Lisinopril 20 mg b.i.d. 7. Tramadol 50 mg every 6 hours as needed. 8. Senokot-S 2 b.i.d. ALLERGIES: NO KNOWN ALLERGIES. REVIEW OF SYSTEMS: CONSTITUTIONAL: The patient denies any chills or fever. The patient has had no recent change in her weight. EYES, EARS, NOSE, AND THROAT: No complaints. PULMONARY: No shortness of breath. CARDIOVASCULAR: No chest pain. GI: No nausea or vomiting. The patient has not had a good bowel movement since her surgery. : No complaints. MUSCULOSKELETAL: The patient has some pain in the left hip, but managed with her pain medication. ADL: Prior to her surgery, the patient was independent of her ADLs. Ambulated with the use of a walker. The patient lives at her home by herself but lives adjacent to her son and [id number]. Her instrumental ADLs are all attended by her son and [id number]. HABITS: Alcohol, none. Tobacco, none. SOCIAL HISTORY: The patient is a . CODE STATUS: Full code. PHYSICAL EXAMINATION: GENERAL: Shows a very pleasant 89-year-old female, who is alert and appears in no distress. VITAL SIGNS: Temperature 97.3, pulse 94, respirations 14, O2 saturation 95% on room air, and blood pressure 160/74. Her weight is 114, her height is 60 inches. HEENT: Head, normocephalic and atraumatic. Ears, right TM clear. Left TM blocked by cerumen. Eyes, pupils are equal, round, and reactive. Nose, normal mouth and throat. NECK: Normal. Carotids are equal and strong. LUNGS: Clear. HEART: Regular rate. No murmurs. ABDOMEN: Soft. No organomegaly nor areas of tenderness. EXTREMITIES: Left hip, there is dressing over the incisions, which by report, skin is closed with frank. The patient has sequential contraction devices on the lower legs. SKIN: No rash. NEUROLOGIC: The patient alert and oriented x3. The patient has no focal weakness other than some localized weakness in the left leg secondary to the left hip surgery. IMPRESSION: 1. Generalized weakness and gait abnormality. a. Following a fall on 06/30/2019 with a fracture of the left hip and surgical repair. 2. Intertrochanteric fracture of the left hip. a. Secondary to mechanical fall on 06/30/2019. b. Status post open reduction and internal fixation with a plate and hip screw by Dr. Félix Villalta on 06/30/2019. 3. History of fracture of the right distal femur. a. Status post open reduction and internal fixation with an intramedullary radha with 2 cross locking screws distal and one proximal, 04/28/2018, healed. 4. Hypertension. 5. Constipation. PLAN: The patient has been admitted to [facility] for PT and OT in an effort to try to improve her general functional capability. See orders. Code status, full code. Job ID: [id number] MTDD
[2019-07-07] MEDS: Ibuprofen 200 MG TAB PO SCH (06:08)
[2019-07-07] MEDS: Acetaminophen 500 MG TAB PO SCH ×2 (06:08→11:50)
[2019-07-07] MEDS: Polyethylene Glycol 3350 17 GM Packet PO SCH (08:16)
[2019-07-07] MEDS: Amlodipine 5 MG TAB PO SCH (08:16)
[2019-07-07] MEDS: Aspirin 81 mg Enteric Coated Tablet PO SCH ×2 (08:16→21:22)
[2019-07-07] MEDS: Lisinopril 20 MG TAB PO SCH ×2 (08:16→21:21)
[2019-07-07] MEDS: Senokot S 8.6-50 MG TAB PO SCH ×2 (08:16→21:22)
[2019-07-08] MEDS: Senokot S 8.6-50 MG TAB PO SCH ×2 (09:17→20:19)
[2019-07-08] MEDS: Polyethylene Glycol 3350 17 GM Packet PO SCH (09:17)
[2019-07-08] MEDS: Aspirin 81 mg Enteric Coated Tablet PO SCH ×2 (09:18→20:19)
[2019-07-08] MEDS: Amlodipine 5 MG TAB PO SCH (09:18)
[2019-07-08] MEDS: Lisinopril 20 MG TAB PO SCH ×2 (09:18→20:21)
[2019-07-08] MEDS: Ibuprofen 200 MG TAB PO PRN (20:20)
[2019-07-09] MEDS: Amlodipine 5 MG TAB PO SCH (08:56)
[2019-07-09] MEDS: Senokot S 8.6-50 MG TAB PO SCH ×2 (08:57→20:06)
[2019-07-09] MEDS: Acetaminophen 500 MG TAB PO PRN ×2 (08:57→20:07)
[2019-07-09] MEDS: Lisinopril 20 MG TAB PO SCH ×2 (08:57→20:07)
[2019-07-09] MEDS: Polyethylene Glycol 3350 17 GM Packet PO SCH (08:57)
[2019-07-09] MEDS: Aspirin 81 mg Enteric Coated Tablet PO SCH ×2 (08:57→20:07)
[2019-07-10] MEDS: Acetaminophen 500 MG TAB PO PRN (08:26)
[2019-07-10] MEDS: Senokot S 8.6-50 MG TAB PO SCH ×2 (08:26→21:11)
[2019-07-10] MEDS: Aspirin 81 mg Enteric Coated Tablet PO SCH ×2 (08:26→21:10)
[2019-07-10] MEDS: Lisinopril 20 MG TAB PO SCH ×2 (08:27→21:10)
[2019-07-10] MEDS: Polyethylene Glycol 3350 17 GM Packet PO SCH (08:27)
[2019-07-10] MEDS: Amlodipine 5 MG TAB PO SCH (08:27)
[2019-07-10] MEDS: Ibuprofen 200 MG TAB PO PRN (21:09)
[2019-07-11] MEDS: Amlodipine 5 MG TAB PO SCH (08:17)
[2019-07-11] MEDS: Lisinopril 20 MG TAB PO SCH ×2 (08:17→20:34)
[2019-07-11] MEDS: Senokot S 8.6-50 MG TAB PO SCH ×2 (08:17→20:33)
[2019-07-11] MEDS: Aspirin 81 mg Enteric Coated Tablet PO SCH ×2 (08:17→20:35)
[2019-07-11] MEDS: Polyethylene Glycol 3350 17 GM Packet PO SCH (08:18)
--- NOTE | 2019-07-11 10:03 | PRG ---
DATE OF SERVICE: 07/10/2019 SUBJECTIVE: The patient said she is doing fine. She has little soreness over left hip. She has a little ice pack on this. She has already been to therapy this morning. OBJECTIVE: GENERAL: The patient is sitting up in a chair, preparing to eat breakfast. She is alert, talkative, and appears in no distress. VITAL SIGNS: Temperature is 98.6, blood pressure 134/61, O2 saturation 97%. LUNGS: Clear. HEART: Regular rate. EXTREMITIES: No edema. ASSESSMENT: 1. Generalized weakness. a. Following a fall on 06/30/2019 with a fracture of the left hip and surgical repair. b: Improved as of 07/10. 2. Intertrochanteric fracture of the left hip. a. Secondary to mechanical fall on 06/30/2019. b. Status post open reduction and internal fixation with a plate and hip screw by Dr. Félix Villalta on 06/30/2019. c. Improving as of 07/10/2019. 3. History of fracture of the right distal femur. a. Status post open reduction and internal fixation with an intramedullary radha with two locking screws distal and one proximal 06/28/2018, healed. 4. Hypertension. 5. Constipation. PLAN: The patient is making excellent progress. We will continue PT and OT. Job ID: [id number] [facility]
--- NOTE | 2019-07-11 10:05 | PRG ---
DATE OF SERVICE: 07/09/2019 SUBJECTIVE: The patient says she is feeling fine today. She does very good with physical therapy. She is sitting up in her chair. OBJECTIVE: GENERAL: The patient is alert, appears in no distress. VITAL SIGNS: Show a temperature of 98.3, pulse 72, blood pressure 135/62, respirations 18, and O2 saturation 96% on room air. LUNGS: Clear. HEART: Regular rate. EXTREMITIES: The incision over the left hip is dry. There is no edema in the lower extremities. ASSESSMENT: 1. Generalized weakness and gait abnormality. a. Following a fall on 06/30/2019 with a fracture of the left hip and surgical repair. 2. Intertrochanteric fracture of the left hip. a. Secondary to a mechanical fall on 06/30/2019. b. Status post open reduction and internal fixation with a sideplate and hip screw by Dr. Félix Villalta on 06/30/2019. c. Healing well as of 07/09. 3. History of fracture of the right distal femur. a. Status post open reduction and internal fixation with an intramedullary radha with two cross-locking screws distal and one proximal on 06/28/2018, healed. 4. Hypertension. a. Controlled as of 07/09. 5. Constipation. PLAN: Continue PT and OT. Continue present care. Job ID: [id number] MTDD
[2019-07-11] MEDS: Ibuprofen 200 MG TAB PO PRN (10:06)
--- NOTE | 2019-07-11 10:06 | PRG ---
DATE OF SERVICE: 07/11/2019 SUBJECTIVE: The patient says she is doing very well. This morning, she is already in physical therapy, working on the NuStep, using her arms and legs. She said her hip is feeling pretty good. She is having some swelling in the legs, more on the left than the right. OBJECTIVE: GENERAL: The patient is working out on the Head Held HighStep. She appears very comfortable, in no distress. VITAL SIGNS: Show a temperature 99, pulse 75, blood pressure 126/58, respirations 20, and O2 saturation 96% on room air. LUNGS: Clear. HEART: Regular rate. EXTREMITIES: Left leg; there is 1+ edema in the left ankle and dressing over the incision is dry. ASSESSMENT: 1. Generalized weakness. a. Following a fall on 06/30 with fracture of the left hip and surgical repair. b. Improving as of 07/11. 2. Intertrochanteric fracture of the left hip. a. Secondary to mechanical fall on 06/30/2019. b. Status post open reduction and internal fixation with a plate and hip screw by Dr. Félix Villalta on 06/30/2019. c. Gradual improvement as of 07/11. 3. History of fracture of the right distal femur. a. Status post open reduction and internal fixation with an intramedullary radha with two cross-locking screws distal and one proximal on 06/28/2018, healed. 4. Hypertension. a. Controlled. 5. Constipation. a. Controlled. PLAN: Continue present care. Continue PT. Job ID: [id number] MTDD
--- NOTE | 2019-07-11 10:06 | PRG ---
DATE OF SERVICE: 07/06/2019 SUBJECTIVE: The patient says she is doing good today. Yesterday, she said she sit up in a chair for a while. She said she has a little soreness in that left hip. Otherwise, she thinks she is doing fine. OBJECTIVE: GENERAL: The patient is sitting up in bed. She is alert, appears very comfortable. VITAL SIGNS: Temperature 98, pulse 64, respirations 18, O2 saturations 98% on room air, and blood pressure 141/61. LUNGS: Clear. HEART: Regular rate. EXTREMITIES: Left hip, dressing over the incisions are dry. Lower extremities , no edema. LABORATORY DATA: Hemoglobin and hematocrit 10 and 32.4, white cell count 7400 with 79% segs, 14% lymphocytes, platelet count 551,000. Sodium 141, potassium 4.7, BUN 23, creatinine 0.91, GFR 58, glucose 88. ASSESSMENT: 1. Generalized weakness;. a. Following a fall and fracture of the left hip, requiring open reduction and internal fixation on 06/30/2019. 2. Left intertrochanteric fracture of the left femur;. a. Secondary to a fall, ground level on 06/30/2019. b. Status post open reduction and internal fixation with a sideplate and hip screw by Dr. Félix Villalta on 06/30/2019. 3. Hypertension. 4. History of right distal femur fracture;. a. Status post open reduction and internal fixation with intramedullary radha with two cross locking screws distal and one cross locking screw proximal on . b. Healed. PLAN: The patient is doing very well. We will continue present care. Job ID: [id number] [facility]
[2019-07-11] MEDS ORDERED: Sodium Chloride Irrig Solution 250 ML BOT ONE (10:19)
[2019-07-11] MEDS: Acetaminophen 500 MG TAB PO PRN (20:34)
[2019-07-12] MEDS: Amlodipine 5 MG TAB PO SCH (08:17)
[2019-07-12] MEDS: Polyethylene Glycol 3350 17 GM Packet PO SCH (08:17)
[2019-07-12] MEDS: Senokot S 8.6-50 MG TAB PO SCH ×2 (08:17→20:23)
[2019-07-12] MEDS: Aspirin 81 mg Enteric Coated Tablet PO SCH ×2 (08:17→20:23)
[2019-07-12] MEDS: Lisinopril 20 MG TAB PO SCH ×2 (08:17→20:24)
[2019-07-12] MEDS: Acetaminophen 500 MG TAB PO PRN (20:27)
[2019-07-13] MEDS: Amlodipine 5 MG TAB PO SCH (09:04)
[2019-07-13] MEDS: Aspirin 81 mg Enteric Coated Tablet PO SCH ×2 (09:04→21:12)
[2019-07-13] MEDS: Lisinopril 20 MG TAB PO SCH ×2 (09:04→21:12)
[2019-07-13] MEDS: Polyethylene Glycol 3350 17 GM Packet PO SCH (09:05)
[2019-07-13] MEDS: Senokot S 8.6-50 MG TAB PO SCH ×2 (09:05→21:12)
--- NOTE | 2019-07-13 09:53 | PRG ---
DATE OF SERVICE: 07/13/2019 SUBJECTIVE: The patient said she is feeling good. She is doing better with physical therapy, walking a little further. OBJECTIVE: GENERAL: The patient is alert, appears in no distress. VITAL SIGNS: Show a temperature of 98.1, pulse 75, respirations 14, O2 saturations 95%, and blood pressure is 147/65. LUNGS: Clear. HEART: Regular rate. EXTREMITIES: Incision over the left hip shows incision healing well. Davion are present. ASSESSMENT: 1. Generalized weakness;. a. Following a fall on 06/30 with fracture of the left hip and surgical repair. b. Improved, walking further and transferring easier as of 07/13/2019. 2. Intertrochanteric fracture of the left hip;. a. Secondary to mechanical fall on 06/30/2019. b. Status post open reduction and internal fixation with a plate and hip screw by Dr. Félix Villalta on 06/30/2019. c. Continued improvement as of 07/13/2019. 3. History of fracture of the right distal femur;. a. Status post open reduction and internal fixation with an intramedullary radha with two cross locking screws distal and one proximal on 06/28/2018, healed. 4. Hypertension;. a. Controlled. 5. Constipation;. a. Controlled. PLAN: Continue PT and OT. Job ID: [id number] MTDD
[2019-07-14] MEDS: Aspirin 81 mg Enteric Coated Tablet PO SCH ×2 (10:00→21:14)
[2019-07-14] MEDS: Amlodipine 5 MG TAB PO SCH (10:00)
[2019-07-14] MEDS: Lisinopril 20 MG TAB PO SCH ×2 (10:00→21:15)
[2019-07-14] MEDS: Senokot S 8.6-50 MG TAB PO SCH ×2 (10:01→21:15)
[2019-07-14] MEDS: Polyethylene Glycol 3350 17 GM Packet PO SCH (10:01)
--- NOTE | 2019-07-14 15:55 | PRG ---
DATE OF SERVICE: 07/14/2019 SUBJECTIVE: The patient says she is doing good with her therapy. OBJECTIVE: GENERAL: The patient lying in bed after completing her therapy earlier this morning. She has no complaint. VITAL SIGNS: Temperature is 97.5, pulse 80, respirations 16, O2 saturations 94% , blood pressure 154/67. LUNGS: Clear. HEART: Regular rate. EXTREMITIES: Trace edema in the left leg. Incisions are healing well. [place] are to be removed today. ASSESSMENT: 1. Generalized weakness: a. Following a fall on 06/30 with a fracture of the left hip and surgical repair. b. Improved. Walking further and transferring easier as of 07/14/2019. 2. Intertrochanteric fracture of the left hip: a. Secondary to mechanical fall on 06/30/2019. b. Status post open reduction and internal fixation with a plate and hip screw by Dr. Félix Villalta on 06/30/2019. c. Continued improvement as of 07/14/2019. [place] removed today. 3. History of fracture of the right distal femur: a. Status post open reduction and internal fixation with an intramedullary radha with two cross locking screws distal and one proximal on 06/28/2018, healed. 4. Hypertension: a. Controlled. 5. Constipation: a. Controlled. PLAN: Continued improvement. Continue PT and OT. [facility] [id number] [facility]
[2019-07-14] MEDS: Acetaminophen 500 MG TAB PO PRN (21:16)
[2019-07-15] MEDS: Senokot S 8.6-50 MG TAB PO SCH ×2 (08:36→21:01)
[2019-07-15] MEDS: Aspirin 81 mg Enteric Coated Tablet PO SCH ×2 (08:37→21:00)
[2019-07-15] MEDS: Ibuprofen 200 MG TAB PO PRN ×2 (08:37→21:00)
[2019-07-15] MEDS: Polyethylene Glycol 3350 17 GM Packet PO SCH (08:37)
[2019-07-15] MEDS: Lisinopril 20 MG TAB PO SCH ×2 (08:37→21:00)
[2019-07-15] MEDS: Amlodipine 5 MG TAB PO SCH (08:37)
[2019-07-16] MEDS: Lisinopril 20 MG TAB PO SCH ×2 (08:14→21:10)
[2019-07-16] MEDS: Amlodipine 5 MG TAB PO SCH (08:14)
[2019-07-16] MEDS: Senokot S 8.6-50 MG TAB PO SCH ×2 (08:14→21:11)
[2019-07-16] MEDS: Aspirin 81 mg Enteric Coated Tablet PO SCH ×2 (08:14→21:10)
[2019-07-16] MEDS: Polyethylene Glycol 3350 17 GM Packet PO SCH (08:15)
[2019-07-16] MEDS: Ibuprofen 200 MG TAB PO PRN (21:11)
[2019-07-17] MEDS: traMADol HCl 50 MG TAB PO PRN (09:31)
[2019-07-17] MEDS: Amlodipine 5 MG TAB PO SCH (09:32)
[2019-07-17] MEDS: Aspirin 81 mg Enteric Coated Tablet PO SCH ×2 (09:32→21:06)
[2019-07-17] MEDS: Senokot S 8.6-50 MG TAB PO SCH ×2 (09:33→21:06)
[2019-07-17] MEDS: Lisinopril 20 MG TAB PO SCH ×2 (09:33→21:06)
[2019-07-17] MEDS: Polyethylene Glycol 3350 17 GM Packet PO SCH (09:33)
--- NOTE | 2019-07-17 15:12 | PRG ---
DATE OF SERVICE: 07/17/2019 SUBJECTIVE: The patient said she is doing good this morning. She had no complaint. OBJECTIVE: GENERAL: The patient is sitting up in her bedside chair. She had no complaint. She appears in no distress. VITAL SIGNS: Show a temperature of 98.3, pulse 71, respirations 20, O2 saturation 97% on room air, blood pressure 150/54. LUNGS: Clear. HEART: Regular rate. MUSCULOSKELETAL: Incision over the left hip healing well. The frank are out. EXTREMITIES: Lower extremities, just trace edema in the left leg. ASSESSMENT: 1. Generalized weakness. a. Following a fall on 06/30 with a fracture of the left hip and surgical repair. b. Improved, walking further and transferring easier as of 07/17/2019. 2. Intertrochanteric fracture of the left hip. a. Secondary to mechanical fall on 06/30. b. Status post open reduction and internal fixation with plate and hip screw by Dr. Félix Villalta on 06/30/2019. c. Continued improvement as of 07/17/2019. 3. History of fracture of the right distal femur. a. Status post open reduction and internal fixation with an intramedullary radha with 2 cross-locking screws distal and 1 proximal on 06/28/2018, healed. 4. Hypertension, controlled. 5. Constipation. a. Controlled. PLAN: Continue present care. Continue PT and OT. Job ID: [id number] [facility]
--- NOTE | 2019-07-17 15:12 | PRG ---
DATE OF SERVICE: 07/07/2019 SUBJECTIVE: The patient says she is doing just fine. She was complaining about the scheduled acetaminophen and ibuprofen, said she does not need it, she is not having any pain. This will be placed as an as-needed. She is working with Physical Therapy and doing very well. This morning, she is already walked up to 85 feet on 2 occasions with a rolling walker and is transferring with minimal assistance. OBJECTIVE: GENERAL: The patient is sitting up in a bedside chair. She is alert, looks very comfortable, in no distress. VITAL SIGNS: Her temperature is 97.6, pulse is 76, blood pressure is 121/56, respirations are 16, and O2 saturation is 95% on room air. LUNGS: Clear. HEART: Regular rate. EXTREMITIES: No edema. ASSESSMENT: 1. Generalized weakness and gait abnormality. a. Following a fall on 06/30/2019 with a fracture of the left hip and surgical repair. b. Improved, walking up to 85 feet with a rolling walker and standby assistance, transferring with minimal assistance as of 07/07. 2. Intertrochanteric fracture of the left hip. a. Secondary to mechanical fall on 06/30/2019. b. Status post open reduction and internal fixation with a plate and hip screw by Dr. Félix Villalta on 06/30/2019. c. Improved as of 07/07. 3. History of fracture of the right distal femur. a. Status post open reduction and internal fixation with an intramedullary radha with 2 cross locking screws distal and one proximal, 04/28/2018, healed. 4. Hypertension. a. Controlled as of 07/07. 5. Constipation. a. Controlled as of 07/07. PLAN: Continue present care. Continue PT and OT. [facility] [id number] [facility]
[2019-07-17] MEDS: Ibuprofen 200 MG TAB PO PRN (21:07)
[2019-07-18] MEDS: Acetaminophen 500 MG TAB PO PRN (08:26)
[2019-07-18] MEDS: Aspirin 81 mg Enteric Coated Tablet PO SCH ×2 (08:26→21:55)
[2019-07-18] MEDS: Lisinopril 20 MG TAB PO SCH ×2 (08:26→21:55)
[2019-07-18] MEDS: Amlodipine 5 MG TAB PO SCH (08:26)
[2019-07-18] MEDS: Senokot S 8.6-50 MG TAB PO SCH ×2 (08:29→21:55)
[2019-07-18] MEDS: Polyethylene Glycol 3350 17 GM Packet PO SCH (08:29)
--- NOTE | 2019-07-18 11:52 | PRG ---
DATE OF SERVICE: 07/18/2019 SUBJECTIVE: The patient is doing very well. She is already in Physical Therapy. Physical therapist said she is doing very well. She is transferring better and walking further, but attempting to go too fast and it is causing some increased pain in her hip. They are slowing her down a little bit and reworking with her to try to help reduce some of the pain and help stabilize her gait and transfers. OBJECTIVE: GENERAL: The patient is sitting on the Nu[employer], working her hands and her arms and legs. She appears comfortable, in no distress. VITAL SIGNS: Her temperature is 97.5, pulse 70, respirations 20, O2 saturation is 97%, and blood pressure 168/74. LUNGS: Clear. HEART: Regular rate. EXTREMITIES: Just trace edema. ASSESSMENT: 1. Generalized weakness. a. Following a fall on 06/30 with a fracture of the left hip and surgical repair. b. Improved. Walking a little further and transferring better as of 2019. 2. Trochanteric fracture of the left hip. a. Secondary to a mechanical fall on 06/30. b. Status post open reduction and internal fixation with plate and screw by Dr. Félix Villalta on 06/30/2019. c. Continued improvement as of 07/18/2019. 3. History of fracture of the right distal femur. a. Status post open reduction and internal fixation with an intramedullary radha with two cross-locking screws distal and one proximal on 06/28/2018, healed. b. Hypertension, controlled. c. Constipation, controlled. PLAN: Continue PT and OT. [facility] ID: [id number] [facility]
[2019-07-18] MEDS ORDERED: Loratadine 10 MG TAB PO SCH (21:30)
[2019-07-18] MEDS: Ibuprofen 200 MG TAB PO PRN (21:56)
[2019-07-19] MEDS: Senokot S 8.6-50 MG TAB PO SCH ×2 (08:23→21:03)
[2019-07-19] MEDS: Loratadine 10 MG TAB PO SCH (08:23)
[2019-07-19] MEDS: Aspirin 81 mg Enteric Coated Tablet PO SCH ×2 (08:23→21:03)
[2019-07-19] MEDS: Lisinopril 20 MG TAB PO SCH ×2 (08:23→21:03)
[2019-07-19] MEDS: Amlodipine 5 MG TAB PO SCH (08:23)
[2019-07-19] MEDS: Polyethylene Glycol 3350 17 GM Packet PO SCH (08:24)
--- NOTE | 2019-07-19 10:12 | PRG ---
DATE OF SERVICE: 07/19/2019 SUBJECTIVE: The patient thinks she has developed a little cold. The nurses have called me last night, said she had a little sneezing, runny nose, but no fever. She was started on Claritin 10 mg a day. This morning, she has already been up working with physical therapy, and other than the occasional sneezing and runny nose, she feels all right. OBJECTIVE: GENERAL: The patient is alert, appears comfortable, in no distress. VITAL SIGNS: Show a temperature of 97.9, pulse 67, blood pressure 124/56, respirations 16, O2 saturation 94% on room air. LUNGS: Clear. HEART: Regular rate. EXTREMITIES: No edema. ASSESSMENT: 1. Generalized weakness. a. Following a fall on 06/30 with a fracture of the left hip and surgical repair. b. Improved. Walking further and transferring better as of 07/19/2019. 2. Trochanteric fracture of the left hip. a. Secondary to mechanical fall on 06/29. b. Status post open reduction and internal fixation with a plate and screw by Dr. Félix Villalta on 06/30/2019. c. Continued improvement as of 07/19/2019. 3. History of fracture of the right distal femur. a. Status post open reduction and internal fixation with an intramedullary radha with two cross locking screws distal and one proximal on 06/28/2018, healed. 4. Hypertension, controlled. 5. Constipation, controlled. PLAN: Continue PT and OT. Continue the Claritin for the nasal drainage and sneezing. Job ID: [id number] [facility]
[2019-07-19] MEDS ORDERED: Sodium Chloride Irrig Solution 250 ML BOT ONE (10:51)
[2019-07-20] MEDS: Ibuprofen 200 MG TAB PO PRN ×2 (01:04→21:25)
[2019-07-20] MEDS: Acetaminophen 500 MG TAB PO PRN (08:16)
[2019-07-20] MEDS: Aspirin 81 mg Enteric Coated Tablet PO SCH ×2 (08:16→21:25)
[2019-07-20] MEDS: Amlodipine 5 MG TAB PO SCH (08:17)
[2019-07-20] MEDS: Loratadine 10 MG TAB PO SCH (08:17)
[2019-07-20] MEDS: Lisinopril 20 MG TAB PO SCH ×2 (08:17→21:24)
[2019-07-20] MEDS: Polyethylene Glycol 3350 17 GM Packet PO SCH (08:17)
[2019-07-20] MEDS: Senokot S 8.6-50 MG TAB PO SCH ×2 (08:17→21:25)
--- NOTE | 2019-07-20 09:27 | PRG ---
DATE OF SERVICE: 07/20/2019 SUBJECTIVE: The patient says she is doing good. She has already been to therapy this morning. She said her cold symptoms are better. OBJECTIVE: GENERAL: The patient is sitting up in a bedside chair. She is alert, appears in no distress. VITAL SIGNS: Her temperature is 97.8, pulse 72, respirations 16, O2 saturation 94% on room air, and blood pressure 128/59. LUNGS: Clear. HEART: Regular rate. EXTREMITIES: Lower extremities, just trace edema. ASSESSMENT: 1. Generalized weakness. a. Following a fall on 06/30 with a fracture of the left hip and surgical repair. b. Improved. Walking further and transferring better as of 07/20. 2. Trochanteric fracture of the left hip. a. Secondary to mechanical fall on 06/30/2019. b. Status post open reduction and internal fixation with a plate and screw by Dr. Félix Villalta on 06/30/2019. c. Continued improvement as of 07/20/2019. 3. History of fracture of the right distal femur. a. Status post open reduction and internal fixation with an intramedullary radha and with two cross locking screws distal and one proximal on 06/28/2018, healed. 4. Hypertension, controlled. 5. Constipation, controlled. PLAN: Continue present care. Continue PT and OT. Job ID: [id number] [facility]
[2019-07-21] MEDS: Polyethylene Glycol 3350 17 GM Packet PO SCH (09:25)
[2019-07-21] MEDS: Loratadine 10 MG TAB PO SCH (09:25)
[2019-07-21] MEDS: Aspirin 81 mg Enteric Coated Tablet PO SCH ×2 (09:26→21:09)
[2019-07-21] MEDS: Amlodipine 5 MG TAB PO SCH (09:26)
[2019-07-21] MEDS: Lisinopril 20 MG TAB PO SCH ×2 (09:26→21:09)
[2019-07-21] MEDS: Senokot S 8.6-50 MG TAB PO SCH ×2 (09:27→21:09)
--- NOTE | 2019-07-21 11:51 | PRG ---
DATE OF SERVICE: 07/21/2019 SUBJECTIVE: The patient said she is doing good. She has already been to therapy this morning. She said her cold symptoms are getting better. She is not sneezing or having as much runny nose. She has had no fever. OBJECTIVE: GENERAL: The patient is up in a geriatric chair. She is alert, appears comfortable, in no distress. VITAL SIGNS: Shows a temperature of 98.2, her pulse is 69, blood pressure 132/ 62, respirations are 20, and O2 saturation 96% on room air. LUNGS: Clear. HEART: Regular rate. EXTREMITIES: Lower extremities, just trace edema. ASSESSMENT: 1. Generalized weakness: a. Following a fall on 06/30/2019 with a fracture of the left hip and surgical repair. b. Improved. Walking further and transferring better as of 07/20/2019. 2. Intertrochanteric fracture of the left hip: a. Secondary to mechanical fall on 06/30/2019. b. Status post open reduction and internal fixation with a plate screw by Dr. Félix Villalta on 06/30/2019. c. Continued improvement as of 07/21/2019. 3. History of fracture of the right distal femur: a. Status post open reduction and internal fixation with an intramedullary radha and with two cross locking screws distal and one proximal on 06/28/2018, healed. 4. Hypertension, controlled. 5. Constipation, controlled. PLAN: Continue present care. Continue PT and OT. Job ID: [id number] [facility]
[2019-07-21] MEDS: traMADol HCl 50 MG TAB PO PRN (21:12)
[2019-07-22] MEDS: Senokot S 8.6-50 MG TAB PO SCH ×2 (09:35→21:14)
[2019-07-22] MEDS: Amlodipine 5 MG TAB PO SCH (09:35)
[2019-07-22] MEDS: Polyethylene Glycol 3350 17 GM Packet PO SCH (09:36)
[2019-07-22] MEDS: Loratadine 10 MG TAB PO SCH (09:36)
[2019-07-22] MEDS: Lisinopril 20 MG TAB PO SCH ×2 (09:36→21:13)
[2019-07-22] MEDS: Aspirin 81 mg Enteric Coated Tablet PO SCH ×2 (09:36→21:13)
[2019-07-23] MEDS: Aspirin 81 mg Enteric Coated Tablet PO SCH ×2 (09:00→20:31)
[2019-07-23] MEDS: Senokot S 8.6-50 MG TAB PO SCH ×2 (09:00→20:31)
[2019-07-23] MEDS: Polyethylene Glycol 3350 17 GM Packet PO SCH (09:01)
[2019-07-23] MEDS: Lisinopril 20 MG TAB PO SCH ×2 (09:01→20:31)
[2019-07-23] MEDS: Amlodipine 5 MG TAB PO SCH (09:01)
[2019-07-23] MEDS: Loratadine 10 MG TAB PO SCH (09:01)
[2019-07-23] MEDS: traMADol HCl 50 MG TAB PO PRN (20:31)
[2019-07-24] MEDS: traMADol HCl 50 MG TAB PO PRN ×2 (06:16→20:15)
--- NOTE | 2019-07-24 08:14 | PRG ---
DATE OF SERVICE: 07/22/2019 SUBJECTIVE: The patient says she is doing fine. This morning, she is feeling good. She has mild pain in that left hip. She is making gradual progress with her therapy. Her cold symptoms are all resolving. OBJECTIVE: GENERAL: The patient is sitting up in bed, is alert, talkative, appears comfortable, in no distress. VITAL SIGNS: Her temperature is 98.9, pulse 69, respirations 20, O2 saturation 95% on room air, blood pressure 134/63. LUNGS: Clear. HEART: Regular rate. EXTREMITIES: Trace edema. ASSESSMENT: 1. Generalized weakness. a. Following a fall on 06/30/2019 with a fracture of the left hip and surgical repair. b. Continued improvement. Walking further and transferring better as of 05/2020. 2. Intertrochanteric fracture of the left hip. a. Secondary to a mechanical fall on 06/30/2019. b. Status post open reduction and internal fixation with a plate and hip screw by Dr. Félix Villalta on 06/30/2019. c. Continued improvement as of 07/22/2019. 3. History of fracture of the right distal femur. a. Status post open reduction and internal fixation with an intramedullary radha and with two cross locking screws distal and one proximal on 06/28/2018, healed. 4. Hypertension, controlled. 5. Constipation, controlled. PLAN: Continue present care. Continue PT and OT. [facility] ID: [id number] [facility]
--- NOTE | 2019-07-24 08:56 | PRG ---
DATE OF SERVICE: 07/24/2019 SUBJECTIVE: The patient said she is doing fine this morning. She has already been to therapy. Her hip is feeling better every day. Her cold symptoms have all resolved. OBJECTIVE: GENERAL: The patient is sitting up in a chair. She is alert, talkative, appears in no distress. VITAL SIGNS: Show temp was 99.2 during the night, blood pressure 125/58, pulse 79, respirations 18, O2 saturation 95% on room air. LUNGS: Clear. HEART: Regular rate. EXTREMITIES: No edema. ASSESSMENT: 1. Generalized weakness. a. Following a fall on 06/30/2019 with a fracture of the left hip and surgical repair. b. Continued improvement. Walking further and transferring better as of . 2. Intertrochanteric fracture of the left hip. a. Secondary to mechanical fall on 06/30/2019. b. Status post open reduction and internal fixation with a plate and hip screw by Dr. Félix Villalta on 06/30/2019. c. Continued improvement as of 07/24/2019. 3. History of fracture of the right distal femur. a. Status post open reduction and internal fixation with an intramedullary radha and with two cross locking screws distal and one proximal on 06/28/2018, healed. 4. Hypertension, controlled. 5. Constipation controlled. PLAN: Continue present care. Job ID: [id number] [facility]
[2019-07-24] MEDS: Polyethylene Glycol 3350 17 GM Packet PO SCH (09:02)
[2019-07-24] MEDS: Aspirin 81 mg Enteric Coated Tablet PO SCH ×2 (09:03→20:15)
[2019-07-24] MEDS: Lisinopril 20 MG TAB PO SCH ×2 (09:03→20:15)
[2019-07-24] MEDS: Loratadine 10 MG TAB PO SCH (09:03)
[2019-07-24] MEDS: Senokot S 8.6-50 MG TAB PO SCH ×2 (09:03→20:15)
[2019-07-24] MEDS: Amlodipine 5 MG TAB PO SCH (09:04)
[2019-07-25] MEDS: traMADol HCl 50 MG TAB PO PRN (05:58)
[2019-07-25] MEDS: Lisinopril 20 MG TAB PO SCH ×2 (08:02→20:09)
[2019-07-25] MEDS: Polyethylene Glycol 3350 17 GM Packet PO SCH (08:02)
[2019-07-25] MEDS: Amlodipine 5 MG TAB PO SCH (08:02)
[2019-07-25] MEDS: Senokot S 8.6-50 MG TAB PO SCH ×2 (08:02→20:09)
[2019-07-25] MEDS: Aspirin 81 mg Enteric Coated Tablet PO SCH ×2 (08:02→20:09)
--- NOTE | 2019-07-25 10:32 | PRG ---
DATE OF SERVICE: 07/25/2019 SUBJECTIVE: The patient said she is doing good this morning. She has already been through physical therapy. OBJECTIVE: GENERAL: The patient is sitting up in a bedside chair, preparing to have breakfast. She is alert, appears comfortable, in no distress. VITAL SIGNS: Show a temperature of 97.5, pulse 63, respirations 16, O2 saturation 94% on room air, blood pressure 117/56. LUNGS: Clear. HEART: Regular rate. EXTREMITIES: Just trace edema. ASSESSMENT: 1. Generalized weakness. a. Following a fall on 06/30/2019 with a fracture of the left hip and surgical repair. b. Continued improvement. Walking further and transferring better as of . 2. Intertrochanteric fracture of the left hip. a. Secondary to mechanical fall on 06/30/2019. b. Status post open reduction and internal fixation with a plate and hip screw by Dr. Félix Villalta on 06/30/2019. c. Continued improvement as of 07/25/2019. 3. History of fracture of the right distal femur. a. Status post open reduction and internal fixation with an intramedullary radha and with two cross locking screws distal and one proximal on 06/28/2018, healed. 4. Hypertension, controlled. 5. Constipation controlled. PLAN: Continue present care. Anticipated discharge on Friday 07/28. Job ID: [id number] [facility]
[2019-07-25] MEDS: Acetaminophen 500 MG TAB PO PRN (20:09)
[2019-07-26] MEDS: Senokot S 8.6-50 MG TAB PO SCH ×2 (08:45→20:37)
[2019-07-26] MEDS: Lisinopril 20 MG TAB PO SCH ×2 (08:45→20:37)
[2019-07-26] MEDS: Aspirin 81 mg Enteric Coated Tablet PO SCH ×2 (08:45→20:37)
[2019-07-26] MEDS: Ibuprofen 200 MG TAB PO PRN (08:46)
[2019-07-26] MEDS: Polyethylene Glycol 3350 17 GM Packet PO SCH (08:46)
[2019-07-26] MEDS: Amlodipine 5 MG TAB PO SCH (09:01)
--- NOTE | 2019-07-26 09:43 | PRG ---
DATE OF SERVICE: 07/26/2019 SUBJECTIVE: The patient says she is feeling good. She has already been to physical therapy this morning. She is doing better with her walking and transfers. OBJECTIVE: GENERAL: The patient is sitting up in a bedside chair, the patient did have breakfast. She is alert, talkative, appears in no distress. VITAL SIGNS: Her temperature is 97.1, pulse 77, respirations 16, O2 saturation 93% on room air, blood pressure 151/68. LUNGS: Clear. HEART: Regular rate. EXTREMITIES: Trace edema. The patient is wearing knee-high support hose. ASSESSMENT: 1. Generalized weakness. a. Following a fall on 06/30/2019 with a fracture of the left hip and surgical repair. b. Continued improvement. Walking further and transferring better as of . 2. Intertrochanteric fracture of the left hip. a. Secondary to mechanical fall on 06/30/2019. b. Status post open reduction and internal fixation with a plate and hip screw by Dr. Félix Villalta on 06/30/2019. c. Continued improvement as of 07/26/2019. 3. History of fracture of the right distal femur. a. Status post open reduction and internal fixation with an intramedullary radha and with two cross locking screws distal and one proximal on 06/28/2018, healed. 4. Hypertension, controlled. 5. Constipation controlled. PLAN: Continue present care. Continue PT and OT. Job ID: [id number] [facility]
[2019-07-26] MEDS: traMADol HCl 50 MG TAB PO PRN (17:06)
[2019-07-26] MEDS: Acetaminophen 500 MG TAB PO PRN (20:36)
[2019-07-27 05:53] LABS: Anion Gap 11 mmol/L (10-20); BUN (Urea Nitrogen) 21 mg/dL (9.8-20.1); Band 2 % (5-11); Calc. Creatinine Clearance 42 mL/min (70-130); Calcium 8.5 mg/dL (7.8-10.44); Carbon Dioxide 25 mmol/L (23-31); Chloride 108 mmol/L (98-107); Eosinophils 4 % (0-10); Estimated GFR-MDRD 69; Glucose 91 mg/dL (83-110); Hemoglobin 9.8 g/dL (12.0-16.0); Lymphocytes 20 % (21-51); MDiff Complete? YES; Mean Corpuscular HGB CONC 31.2 g/dL (32.0-36.0); Mean Corpuscular Hemoglobin 29.3 pg (27.0-31.0); Mean Corpuscular Volume 93.9 fL (78.0-98.0); Mean Platelet Volume 6.6 fL (7.4-10.4); Monocytes 12 % (0-10); Neutrophil 49 % (42-75); Platelet Count 483 thou/uL (130-400); Platelet Morphology Comment Appears Increased; Potassium 4.2 mmol/L (3.5-5.1); RBC Distribution Width 14.3 % (11.5-14.5); RBC Morphology Normal; Reactive Lymphocytes 5 % (0-10); Red Blood Cell (RBC) Count 3.36 mill/uL (4.20-5.40); Sodium 140 mmol/L (136-145); Stomatocytes SLIGHT = 2-5 cells (100X) (0-1/hpf); White Blood Cell (WBC) Count 5.2 thou/uL (4.8-10.8)
--- NOTE | 2019-07-27 09:41 | PRG ---
DATE OF SERVICE: 07/27/2019 SUBJECTIVE: The patient says she is doing good today, has already been through physical therapy, and now waiting for breakfast. OBJECTIVE: GENERAL: The patient is sitting up in her chair, but appears comfortable, in no distress. VITAL SIGNS: Temperature 98.5, pulse 68, respirations 18, O2 saturation 96% on room air, blood pressure 140/64. LUNGS: Clear. HEART: Regular rate. EXTREMITIES: No edema. The patient is wearing her knee-high support hose. LABORATORY DATA: H and H of 9.8 and 31.5, white cell count 5200 with 49% segs, 20% lymphocytes, and a platelet count of 483,000. Sodium 140, potassium 4.2, BUN 21, creatinine 0.79. ASSESSMENT: 1. Generalized weakness. a. Following a fall on 06/30/2019 with a fracture of the left hip and surgical repair. b. Continued improvement. Walking further and transferring better as of . 2. Intertrochanteric fracture of the left hip. a. Secondary to mechanical fall on 06/30/2019. b. Status post open reduction and internal fixation with a plate and hip screw by Dr. Félix Villalta on 06/30/2019. c. Continued improvement as of 07/27/2019. 3. History of fracture of the right distal femur. a. Status post open reduction and internal fixation with an intramedullary radha and with two cross locking screws distal and one proximal on 06/28/2018, healed. 4. Hypertension, controlled. 5. Constipation controlled. PLAN: Continue PT/OT. Plan on discharging in the morning. Job ID: [id number] [facility]
[2019-07-27] MEDS: Amlodipine 5 MG TAB PO SCH (10:49)
[2019-07-27] MEDS: Senokot S 8.6-50 MG TAB PO SCH ×2 (10:49→21:19)
[2019-07-27] MEDS: Aspirin 81 mg Enteric Coated Tablet PO SCH ×2 (10:49→21:19)
[2019-07-27] MEDS: Lisinopril 20 MG TAB PO SCH ×2 (10:49→21:19)
[2019-07-27] MEDS: Polyethylene Glycol 3350 17 GM Packet PO SCH (10:50)
[2019-07-27 12:15] VITALS: BMI 23.8
[2019-07-28] MEDS: Acetaminophen 500 MG TAB PO PRN (02:39)
[2019-07-28 07:16] VITALS: TEMP 97.9
[2019-07-28] MEDS: Aspirin 81 mg Enteric Coated Tablet PO SCH (09:15)
[2019-07-28] MEDS: Amlodipine 5 MG TAB PO SCH (09:16)
[2019-07-28] MEDS: Senokot S 8.6-50 MG TAB PO SCH (09:16)
[2019-07-28] MEDS: Polyethylene Glycol 3350 17 GM Packet PO SCH (09:16)
[2019-07-28] MEDS: Lisinopril 20 MG TAB PO SCH (09:16)
[2019-07-28 09:18] VITALS: BP 147/63
== END 2019-07-28 15:10 | disposition home or self-care (01) | DRG 561 ==
LOC: MADMS 15:31
PROVIDERS: ADMIT Family Medicine; ATTEND Family Medicine
DX: Z47.89 Encounter for other orthopedic aftercare (principal); I10 Essential (primary) hypertension; W18.30XD Fall on same level, unspecified, subsequent encounter; Z98.42 Cataract extraction status, left eye; Z98.41 Cataract extraction status, right eye; Z79.82 Long term (current) use of aspirin; Z79.899 Other long term (current) drug therapy; R53.1 Weakness; R53.81 Other malaise; K59.00 Constipation, unspecified
CPT/HCPCS: 36415; 80048; 85025

== ENCOUNTER 2019-08-04 14:14 | Outpatient (CLI) | payer MEDICARE ==
[2019-08-04 14:56] LABS: Hemoglobin 11.9 g/dL (12.0-16.0); Mean Corpuscular HGB CONC 29.8 g/dL (32.0-36.0); Mean Corpuscular Hemoglobin 28.6 pg (27.0-31.0); Mean Corpuscular Volume 95.9 fL (78.0-98.0); Mean Platelet Volume 6.1 fL (7.4-10.4); Platelet Count 705 thou/uL (130-400); RBC Distribution Width 13.9 % (11.5-14.5); Red Blood Cell (RBC) Count 4.18 mill/uL (4.20-5.40); White Blood Cell (WBC) Count 8.7 thou/uL (4.8-10.8)
[2019-08-04 15:04] LABS: Anion Gap 17 mmol/L (10-20); BUN (Urea Nitrogen) 17 mg/dL (9.8-20.1); Calc. Creatinine Clearance 0 mL/min (70-130); Calcium 9.3 mg/dL (7.8-10.44); Carbon Dioxide 23 mmol/L (23-31); Chloride 106 mmol/L (98-107); Estimated GFR-MDRD 47; Glucose 91 mg/dL (83-110); Potassium 5.2 mmol/L (3.5-5.1); Sodium 141 mmol/L (136-145)
== END 2019-08-04 14:15 | disposition home or self-care (01) ==
LOC: MADLABBHPM 14:14
PROVIDERS: ATTEND Family Medicine
DX: I10 Essential (primary) hypertension (principal); R53.1 Weakness
CPT/HCPCS: 80048; 85027